=== PATIENT | male | born 1955 | race Caucasian/White ===

== ENCOUNTER 2016-12-22 07:04 | Inpatient (IN) ==
[2016-12-22] MEDS ORDERED: *HR* Ticagrelor 90 MG TABLET ONE (07:12)
[2016-12-22] MEDS ORDERED: *HR* Heparin 5,000 UNIT/ML VIAL ONE (07:12)
[2016-12-22] MEDS ORDERED: *HR* Ticagrelor 90 MG TABLET PO ONE (07:12)
[2016-12-22] MEDS ORDERED: *HR* Heparin 5,000 UNIT/ML VIAL IVP ONE (07:13)
[2016-12-22] MEDS ORDERED: *HR* Heparin 5,000 UNIT/ML VIAL IVP PRN ×2 (07:13)
[2016-12-22 07:17] LABS: Basophils % 0.4 %; Eosinophils % 0.1 %; Hematocrit 44.4 % (37.5-50.1); Hemoglobin 15.6 g/dL (12.9-16.9); Immature Granulocytes % 0.4 % (0-4); Immature Platelets 6.2 % (1.1-6.1); Lymphocytes # 0.8 K/mcL (0.6-4.6); Lymphocytes % 11.1 %; Mean Corpuscular HGB Conc 35.1 g/dL (31.6-35.5); Mean Corpuscular Hemoglobin 31.1 pg (28.0-33.3); Mean Corpuscular Volume 88.4 fL (83.0-100.0); Mean Platelet Volume 10.4 fL (9.4-12.4); Monocytes # 0.3 K/mcL (0.0-1.3); Monocytes % 3.8 %; Neutrophils # 6.4 K/mcL (1.6-8.9); Platelet Count 173 K/mcL (140-400); Red Blood Count 5.02 M/mcL (4.19-5.50); Red Cell Distribution Width 12.4 % (11.5-14.5); Segmented Neutrophils % 84.2 %
[2016-12-22] MEDS ORDERED: 0.9 % Sodium Chloride 1,000 ML ONE ×3 (07:19→08:28)
--- NOTE | 2016-12-22 07:21 | Emergency Department Note ---
Disposition Clinical Impression: STEMI (ST elevation myocardial infarction) Qualifiers: Involved coronary artery: unspecified coronary artery Qualified Code(s): I21.3 - ST elevation (STEMI) myocardial infarction of unspecified site Disposition: Admitted As Inpatient Condition: Critical Time of Disposition: 07:12 Chest Pain HPI - General Chief Complaint: ED Chest Pain Stated Complaint: chest pain Source: patient, family, EMS Limitations: no limitations Vital Signs Reviewed: Yes Nursing Notes Reviewed: Yes - History of Present Illness HPI Narrative: [id number] male postural history of SC, hypertension, hyperlipidemia, stent placement, last being 3 months ago presents to the emergency department having episode of retrosternal chest pain at 3:30 this morning. Patient states that this is similar to pains had before with previous myocardial infarctions. Patient took aspirin and nitroglycerin and his pain resolved. Patient said he was slightly diaphoretic. Patient states that he is currently having only mild chest pain. Patient also reports that he was supposed to have a stress test done today and was told not to take a lot of his medications. EMS reported ST elevations in the inferior leads 3 and aVF. They reportedly was tachycardic but hypertensive. Severity scale (1-10): 0 - Related Data Home Medications Medication Instructions Recorded Confirmed Aspirin Enteric Coated [Aspirin EC] 81 mg PO DAILY 12/26/14 09/01/16 Clopidogrel [Plavix] 75 mg PO DAILY 12/26/14 09/01/16 Esomeprazole Magnesium [Nexium] 20 mg PO DAILY 12/26/14 09/01/16 Isosorbide MONOnitrate (24 HR) 90 mg PO DAILY 12/26/14 09/01/16 [Imdur] Lisinopril [Zestril] 40 mg PO DAILY 12/26/14 09/01/16 Metoprolol [Lopressor] 100 mg PO BID 12/26/14 09/01/16 Tamsulosin [Flomax] 0.4 mg PO DAILY 12/26/14 09/01/16 Terazosin [Hytrin] 5 mg PO HS 12/26/14 09/01/16 Acetaminophen [Tylenol] 1,000 mg PO BID 09/13/15 09/01/16 amLODIPine [Norvasc] 10 mg PO DAILY 09/13/15 09/01/16 hydroCHLOROthiazide 25 mg PO DAILY 09/13/15 09/01/16 [Hydrochlorothiazide] Nitroglycerin [Nitrostat] 0.4 mg SL AD PRN 12/25/15 09/01/16 Previous Rx's Medication Instructions Recorded Atorvastatin Calcium [Lipitor] 80 mg PO HS #30 tab 09/01/16 Allergies Allergy/AdvReac Type Severity Reaction Status Date / Time omeprazole [From Prilosec] AdvReac Diarrhea Verified 01/09/16 10:07 quinine AdvReac Nightmare Verified 01/09/16 10:07 ranitidine [From Zantac] AdvReac Diarrhea Verified 01/09/16 10:07 All systems ED: reviewed and negative except as stated. Review of Systems: As Per HPI Respiratory: Denies: hemoptysis Gastrointestinal: Denies: melena, hematochezia Genitourinary: Denies: hematuria Hematological/Lymphatic: Denies: easy bleeding Chest Pain PMH - Past Medical History Medical history: Reports: arthritis, hyperlipidemia, hypertension, myocardial infarction Surgical history: Reports: angioplasty/stent, carotid endarterectomy Psychiatric history: Reports: no psych history - Social History Smoking Status: Former smoker Alcohol use: Reports: none Drug use: Reports: none Physical Exam General: 61-year-old male appearing slightly diaphoretic, but not uncomfortable Head: autraumatic, EOMI, no conjuncitval pallor, no scleral icterus, Mouth: oral mucous membranes moist Neck: neck soft, trachea midline Chest:: Equal chest wall rise Lungs: Normal lungs sounds bilaterally, no wheezes, no respiratory distress Heart: normal heart sounds, tachycardic, normal rhythm Abdomen: soft, non-tender, no rigidity, no guarding, no rebdound tenderness Lower Extremities: no pedal edema, calves non-tender Integumentary: Skin warm, dry, and intact Neuro: Alert - General Limitations: no limitations General appearance: alert, in distress Course Vital Signs Temperature 98.2 F 12/22/16 07:06 Pulse Rate 134 12/22/16 07:06 Respiratory Rate 20 12/22/16 07:06 Blood Pressure 158/89 12/22/16 07:06 O2 Sat by Pulse Oximetry 97 12/22/16 07:06 Temperature 98.2 F 12/22/16 07:06 Pulse Rate 137 12/22/16 07:14 Respiratory Rate 12 12/22/16 07:14 Blood Pressure 131/92 12/22/16 07:14 O2 Sat by Pulse Oximetry 98 12/22/16 07:14 Oxygen Delivery Oxygen Delivery Room Air Chest Pain - MDM Narrative Medical decision making narrative: 61-year-old male past medical history of severe coronary artery disease with 10 stents and most recent stent placement and he was recently taking off his medications for preparation for cardiac stress test was done a few months ago presents via EMS after concern for an inferior SC. Patient has significant ST elevations in leads 3 and aVF. Patient already took aspirin and 1 nitroglycerin prior to arrival to the emergency department. Patient was complaining of 2 out of 10 chest pain here in the emergency department he was mildly diaphoretic. EKG still reveals mild ST elevations in in 3 and aVF. That were new compared to an old electrocardiogram. STEMI was called in the emergency department at 707. [address] Dr. Dugan was spoken to as [phone] and Online Advertising Analyst was called at 7:12. STEMI orders were placed, patient was given 180 of crushed Brilinta. Patient was given heparin bolus as well Patient was tachycardic with a rate of 134 she had an emergency department. He was also normotensive at 120/80 upon arrival. We administered 2 L of normal saline boluses to prevent further hypotension. mushroom laborer came down and take the patient to the Online Advertising Analyst. Vital Signs Temperature 98.2 F 12/22/16 07:06 Pulse Rate 134 12/22/16 07:06 Respiratory Rate 20 12/22/16 07:06 Blood Pressure 158/89 12/22/16 07:06 O2 Sat by Pulse Oximetry 97 12/22/16 07:06 Temperature 98.2 F 12/22/16 07:06 Pulse Rate 137 12/22/16 07:14 Respiratory Rate 12 12/22/16 07:14 Blood Pressure 131/92 12/22/16 07:14 O2 Sat by Pulse Oximetry 98 12/22/16 07:14 Oxygen Delivery Oxygen Delivery Room Air - Medical Records Medical records reviewed: Yes I reviewed the patient's medical records. - Lab Data Lab results reviewed: Yes I reviewed the patient's lab results. Result diagrams: 12/22/16 07:10 12/22/16 07:10 Lab Results 12/22/16 12/22/16 12/22/16 Range/Units 07:10 07:10 07:10 WBC 7.6 (4.3-11.1) K/mcL RBC 5.02 (4.19-5.50) M/mcL Hgb 15.6 (12.9-16.9) g/dL Hct 44.4 (37.5-50.1) % MCV 88.4 (83.0-100.0) fL MCH 31.1 (28.0-33.3) pg MCHC 35.1 (31.6-35.5) g/dL RDW 12.4 (11.5-14.5) % Plt Count 173 (140-400) K/mcL MPV 10.4 (9.4-12.4) fL Immature Gran % 0.4 (0-4) % Seg Neutrophils % 84.2 % Lymphocytes % 11.1 % Monocytes % 3.8 % Eosinophils % 0.1 % Basophils % 0.4 % Neutrophils # 6.4 (1.6-8.9) K/mcL Lymphocytes # 0.8 (0.6-4.6) K/mcL Monocytes # 0.3 (0.0-1.3) K/mcL Eosinophils # 0.0 (0.0-0.6) K/mcL Basophils # 0.0 (0.0-0.2) K/mcL Immature Plt Fraction 6.2 H (1.1-6.1) % PT 11.2 (9.4-12.1) Seconds INR 1.0 APTT 24.1 L (26.0-36.0) Seconds Sodium 137 (136-145) mEq/L Potassium 3.7 (3.5-4.5) mEq/L Chloride 103 (98-109) mEq/L Carbon Dioxide 23 (19-29) mEq/L BUN 20 (8-26) mg/dL Creatinine 1.20 (0.72-1.25) mg/dL Est GFR ( Amer) > 60 (> 60) Est GFR (Non-Af Amer) > 60 (> 60) BUN/Creatinine Ratio 17 (6-26) Glucose 165 H (70-99) mg/dL Calculated Osmolality 290 (280-300) Calcium 9.8 (8.6-10.8) mg/dL Troponin I (0-0.03) ng/mL 12/22/16 Range/Units 07:10 WBC (4.3-11.1) K/mcL RBC (4.19-5.50) M/mcL Hgb (12.9-16.9) g/dL Hct (37.5-50.1) % MCV (83.0-100.0) fL MCH (28.0-33.3) pg MCHC (31.6-35.5) g/dL RDW (11.5-14.5) % Plt Count (140-400) K/mcL MPV (9.4-12.4) fL Immature Gran % (0-4) % Seg Neutrophils % % Lymphocytes % % Monocytes % % Eosinophils % % Basophils % % Neutrophils # (1.6-8.9) K/mcL Lymphocytes # (0.6-4.6) K/mcL Monocytes # (0.0-1.3) K/mcL Eosinophils # (0.0-0.6) K/mcL Basophils # (0.0-0.2) K/mcL Immature Plt Fraction (1.1-6.1) % PT (9.4-12.1) Seconds INR APTT (26.0-36.0) Seconds Sodium (136-145) mEq/L Potassium (3.5-4.5) mEq/L Chloride (98-109) mEq/L Carbon Dioxide (19-29) mEq/L BUN (8-26) mg/dL Creatinine (0.72-1.25) mg/dL Est GFR ( Amer) (> 60) Est GFR (Non-Af Amer) (> 60) BUN/Creatinine Ratio (6-26) Glucose (70-99) mg/dL Calculated Osmolality (280-300) Calcium (8.6-10.8) mg/dL Troponin I 0.03 (0-0.03) ng/mL - EKG Data EKG attestation: Yes I reviewed and interpreted this EKG. EKG results narrative: 07:07 Ventricular rate 136 bpm, ME interval 165 ms, QRS duration 88 ms, QT 283 ms, QTC 363 ms, normal axis. Sinus tachycardia with a rate of 136 ST-elevations in leads III and AVF of [address] Dugan was called and Online Advertising Analyst was activated at 7:12.
[2016-12-22 07:22] LABS: Prothrombin Time 11.2 Seconds (9.4-12.1)
[2016-12-22 07:24] LABS: Activated Partial Thrombo Time 24.1 Seconds (26.0-36.0)
[2016-12-22 07:31] LABS: BUN/Creatinine Ratio 17 (6-26); Blood Urea Nitrogen 20 mg/dL (8-26); Calcium 9.8 mg/dL (8.6-10.8); Carbon Dioxide 23 mEq/L (19-29); Chloride 103 mEq/L (98-109); Glucose 165 mg/dL (70-99); Osmolality,Calculated 290 (280-300); Potassium 3.7 mEq/L (3.5-4.5); Sodium 137 mEq/L (136-145); eGFR For African Americans > 60 (> 60); eGFR For Non-African Americans > 60 (> 60)
[2016-12-22] MEDS ORDERED: *HR* Midazolam HCl 2 MG/2 ML VIAL ONE (07:32)
[2016-12-22] MEDS ORDERED: *HR* FentaNYL (PF) 100 MCG/2 ML VIAL ONE (07:32)
[2016-12-22] MEDS ORDERED: Tirofiban 12.5 MG/250ML 12.5 MG/250 ML BAG ONE (07:34)
[2016-12-22] MEDS ORDERED: *HR* Atropine Sulfate 1 MG/10 ML SYRINGE ONE ×2 (07:41→12:47)
--- NOTE | 2016-12-22 07:52 | Emergency Department Note ---
START Narrative - START START: I examined this patient and my medical decision-making was reviewed with the Resident Physician. I agree with the documented findings, disposition and treatment plan as described except to the extent set forth below. Inferior STEMI by pre-hospital EKG, microbiological lab technician activated prior to pt arrival. No sx of bleeding, anticoagulation started. Pt significantly tachycardic w normal BP, suspect RV involvement. No murmur, no clinical evidence of HF. Pt has 2 peripheral IVs, IVNS running wide open into both. Pt remains tachycardic w normal BP when left for microbiological lab technician.
[2016-12-22] MEDS ORDERED: Amiodarone Premix 150 MG/100 ML BAG IVPB ONE ×2 (08:08→14:28)
[2016-12-22] MEDS ORDERED: Amiodarone Premix 360 MG/200 ML BAG IVC ONE ×2 (08:15→08:32)
[2016-12-22] MEDS ORDERED: Nitroglycerin 1,000 MCG/10 ML VIAL IV ONE (08:28)
[2016-12-22] MEDS ORDERED: *HR* Heparin 10,000 UNIT/10 ML VIAL ONE (08:28)
[2016-12-22] MEDS ORDERED: Heparin 1,000 UNITS/500 mL NS 500 ML ONE (08:28)
[2016-12-22] MEDS ORDERED: *HR* EPINEPHrine 1 MG/10 ML SYRINGE ONE (08:45)
[2016-12-22] MEDS ORDERED: Magnesium Sulfate 1 GM in 0.9 % Sodium Chloride 50 ML IVPB ONE (08:54)
[2016-12-22] MEDS ORDERED: Nitroglycerin 0.4 MG TAB.SUBL SL PRN (09:02)
--- NOTE | 2016-12-22 09:07 | Cardiology History & Physical ---
Date of Encounter: 12/22/16 Time of Encounter: 09:05 Assessment and Plan (1) STEMI (ST elevation myocardial infarction) Current Visit: Yes Status: Acute 61-year-old male presents with inferior ST elevations and acute chest pain started on appropriate ACS medications through the emergency department. Risks benefits and alternatives were discussed with the patient and he agrees to proceed with a left heart catheter. We will switch Plavix to [place] to encase patient is Plavix resistant. Consider brachii therapy for recurrent restenosis/ thrombosis The assessment and plan as outlined above was discussed with the patient and/or family members who expressed understanding and agreement. All questions were answered. Qualifiers: Involved coronary artery: right coronary artery Qualified Code(s): I21.11 - ST elevation (STEMI) myocardial infarction involving right coronary artery History of Present Illness Chief complaint: Chest Pain HPI: Mr. Blue is a 61 year old male with known history of coronary artery disease and PCI to his RCA multiple times with multiple layers in the mid RCA. Patient presented with an inferior ST elevation myocardial infarction to the emergency department. Patient states pain started 3 a half retrosternal atypical in presentation. Patient was hematologically stable on arrival to emerge department was administered ACS medications per protocol. Patient's most recent left heart catheter was August 2016 where he received PTCA to the mid RCA. Risks benefits and alternatives discussed with patient and increased proceed with a left heart catheter. Past Med Surg Social Fam HX - Past Medical History Medical history: arthritis, hyperlipidemia, hypertension, myocardial infarction Psychiatric history: no psych history - Past Surgical History Surgical History: angioplasty/stent, carotid endarterectomy - Social History Smoking Status: Former smoker Smokeless Tobacco Status: No Alcohol use: none Drug use: none - Family History Father Adopted: No Family Member Ethnicity: Non- Living Status: Hx Family Cardiac Disorders: Yes Hx Family Respiratory Disorders: No Hx Family Cancer: Yes (SISTER) Hx Family GI Disorders: No Hx Family Endocrine Disorder: Yes ([employer]) Hx Family Neuromuscular Disorders: No Hx Family Neurologic Disorders: No Hx Family HEENT Disorders: No Hx Family Autoimmune Disorders: No Mother Family Member Ethnicity: Non- Living Status: Still Living Hx Family Cardiac Disorders: Yes (HTN) Hx Family Respiratory Disorders: No Hx Family Cancer: No Hx Family GI Disorders: No Hx Family Endocrine Disorder: No Hx Family Neuromuscular Disorders: No Hx Family Neurologic Disorders: No Hx Family HEENT Disorders: No Hx Family Autoimmune Disorders: No Medications and Allergies Aspirin Enteric Coated [Aspirin EC] 81 mg PO DAILY 12/26/14 [History] Clopidogrel [Plavix] 75 mg PO DAILY 12/26/14 [History] Esomeprazole Magnesium [Nexium] 20 mg PO DAILY 12/26/14 [History] Isosorbide MONOnitrate (24 HR) [Imdur] 90 mg PO DAILY 12/26/14 [History] Lisinopril [Zestril] 40 mg PO DAILY 12/26/14 [History] Metoprolol [Lopressor] 100 mg PO BID 12/26/14 [History] Tamsulosin [Flomax] 0.4 mg PO DAILY 12/26/14 [History] Terazosin [Hytrin] 5 mg PO HS 12/26/14 [History] Acetaminophen [Tylenol] 1,000 mg PO BID 09/13/15 [History] amLODIPine [Norvasc] 10 mg PO DAILY 09/13/15 [History] hydroCHLOROthiazide [Hydrochlorothiazide] 25 mg PO DAILY 09/13/15 [History] Nitroglycerin [Nitrostat] 0.4 mg SL AD PRN 12/25/15 [History] Atorvastatin Calcium [Lipitor] 80 mg PO HS #30 tab 09/01/16 [Rx] 3 Allergy/AdvReac Type Severity Reaction Status Date / Time omeprazole [From Prilosec] AdvReac Diarrhea Verified 12/22/16 07:54 quinine AdvReac Nightmare Verified 12/22/16 07:54 ranitidine [From Zantac] AdvReac Diarrhea Verified 12/22/16 07:54 All Systems Review: A 10-system review of systems was performed and is negative for pertinent findings except as documented above in the HPI. Physical Examination General: Conversant, No Apparent Distress HEENT: Atraumatic, Normocephaly, Mucus Membranes Moist Neck: No JVD, Normal carotid pulses Cardiac: Reg Rate and Rhythm, Normal S1 and S2, No Murmur Lungs: Normal Breath Sounds, No Wheeze, Rales, Rhonchi Neuro: Alert and responsive, No focal deficits noted Abdomen: Soft, Non-Tender Skin: No rashes noted on visualized skin Musculoskeletal: No Chest Wall Tenderness Extremities: No Clubbing, No Cyanosis, No Edema, Normal Pulses Results 12/22/16 07:10 12/22/16 07:10 - VTE Reasons for not Prescribing Prophylaxis: Not indicated-Anticoagulated or INR therapeutic
--- NOTE | 2016-12-22 09:31 | Invasive Diagnostic Lab Proc ---
Name: Yung Blue Date of Study: 12/22/2016 Date: 1955 Ht: 66.9in Medical Record#: [id number] Age: 61 Wt: 214.51lb Gender: Male BSA: 2.08 Order #: [id number] BMI: 33.71 Physicians Procedure Physician: Alex Perdomo MD Referring MD: Referring MD: Staff Name Position Time In Kati Bauer RT (R) Scrub 07:24 AM Alberto Bradshaw RN Turner Machine Operator 07:24 AM Alycia Stallworth RT (R) Monitor 07:24 AM Indications Indication STEMI Procedures Performed Procedure PRQ CARD REVASC FL 1 VSL L HRT ARTERY/VENTRICLE ANGIO Pre-Procedure Checklist Informed consent is complete signed and on chart. H&P is on chart. ID band is on and ID verified with patient. Patient NPO for procedure The procedure was described for the patient and questions were answered. Blood Pressure: 129/76 ECG is on chart. Rhythm: Sinus Tachycardia Plan of Care Patient will tolerate the procedure without complications. Adequate level of comfort will be maintained. Hemodynamics will remain stable Patient will recover from procedure without complications. Respiratory function will be maintained. Cardiac rhythm will remain stable. Patient temperature will be maintained. Patient and/or family have verbalized understanding of the procedure. Patient Education Chief Complaint/Reason for Test: Cardiac Cath Developmental Category: Adult (18-64 years) Developmentally Appropriate for Age: Yes Learning Barriers: None Education Needs: Procedure Education Method: Verbal Information Taught: Cardiac Cath Educational Evaluation: Able to repeat information Intravenous Access Time IV Size Location DC'd Fluid/Drip Rate Units RN 20g 1 1/4" Patent On Arrival Lt Antecubital 0.9NaCl 25 ml/hr Frantz Curtis RN 18g 1 1/4" Patent On Arrival Rt Antecubital Frantz Curtis RN Allergies quinine omeprazole ranitidine Vital Signs Time BP (mmHg) HR (bpm) O2 Sat. RR (bpm) LOC 129 / 76 118 99 % 16 5 = Fully awake and oriented or at pre-proc level 07:30 AM 129 / 76 129 98 % 15 07:35 AM 106 / 71 127 99 % 10 07:40 AM 91 / 43 65 98 % 10 07:46 AM 105 / 55 150 % 13 07:50 AM 107 / 62 108 99 % 12 07:55 AM 96 / 54 106 99 % 14 08:00 AM 101 / 61 108 99 % 13 08:05 AM 95 / 61 102 100 % 15 08:10 AM 84 / 59 115 99 % 14 08:15 AM 90 / 56 107 96 % 14 08:32 AM 114 / 61 110 99 % 16 5 = Fully awake and oriented or at pre-proc level 08:45 AM 116 / 79 115 99 % 16 5 = Fully awake and oriented or at pre-proc level 09:04 AM 92 / 59 120 98 % 16 5 = Fully awake and oriented or at pre-proc level 09:26 AM 99 / 68 109 99 % 16 5 = Fully awake and oriented or at pre-proc level Procedural Medications Time Medication Dose Units Method Given By 07:33 AM Lidocaine 2% 10 ml Subcutaneous Alex Perdomo MD 07:34 AM Oxygen 2 L/min nasal cannula Frantz Curtis RN 07:34 AM Versed 1 mg Intravenous Frantz Curtis RN 07:34 AM Fentanyl 50 mcg Intravenous Frantz Curtis RN 07:36 AM Aggrastat Bolus: 50 ml Intravenous Frantz Curtis RN 07:36 AM Aggrastat 12.5mg/250ml 18 ml Intravenous Frantz Curtis RN 07:43 AM Epinephrine 0.25 mg Intravenous Frantz Curtis RN 08:09 AM Amiodarone 150 mg Intravenous Frantz Curtis RN ASA Classification: Emergent Procedure: ASA score is assumed Rustam Score Preprocedure Postprocedure Activity 2- Moves 4 extremities sustained head lift Activity 2- Moves 4 extremities sustained head lift Circulation 2- SBP +/= 20 points of pre-anesthetic level Circulation 2- SBP +/= 20 points of pre-anesthetic level Consciousness 2- Awake and alert oriented x 3 Consciousness 2- Awake and alert oriented x 3 O2 Saturation 2- Able to maintain O2 satruation of 92% on room air O2 Saturation 2- Able to maintain O2 satruation of 92% on room air Respiratory 2- Able to deep breathe and cough well Respiratory 2- Able to deep breathe and cough well Total Score 10 Total Score 10 Contrast Agent: Isovue Fluoro Dose: 1413 mGy Activated Clotting Time Time Seconds to Clot 08:35 AM 181 Procedure Log Time Note Enter By 07:24 AM Patient charges- Angio tray pack, Navilyst 3mm J, Pulse Oximetry and ACIST tubing and transducer ejohnson 07:24 AM Kati Bauer RT (R) Position: Scrub Time in: 07:24 ejohnson 07:24 AM Alberto Bardshaw RN Position: Turner Machine Operator Time in: 07:24 ejohnson 07:24 AM Alycia Stallworth RT (R) Position: Monitor Time in: 07:24 ejohnson 07:26 AM Pt arrived to medical laboratory manager 2 at 07:26 ejohnson 07:30 AM Vitals capture started with the following parameters, Patient=Adult, Interval=5 min, Initial Wbzplsuh=281 mmHg, Deflation Rate=5 mmHg, Cuff placed on Right Arm 07:30 AM CathStat 07:30 AM Recorded ECG: KI=286 Condition=Condition 1 07:30 AM ES=544 bpm, PAOA=188/76 mmhg, SpO2=98.0 %, Resp=15 B/min 07:33 AM Case Delayed No ejohnson 07:33 AM Hair removed from procedure site in emergency department using clippers. Bilateral groin prepped with Chloraprep by Chhaya Dwyer RN, safety strap applied then patient was draped. Skin intact. ejohnson 07:33 AM Physician arrived 07:33 ejohnson 07:33 AM Procedure start 07:33 ejohnson 07:33 AM Clinical Presentation: STEMI or equivalent ejohnson 07:33 AM Time out performed according to hospital policy ejohnson 07:33 AM Time: 07:33 10 ml Lidocaine 2% to right groin Subcutaneous Given by Alex Perdomo MD ejohnson 07:33 AM Micro-Introducer Kit utilized for sheath placement ejohnson 07:34 AM Time: 07:34 Oxygen on at 2 L/min per nasal cannula by Frantz Curtis RNcare 07:34 AM Time: 07:34 Versed 1 mg Intravenous Given by Frantz Curtis RN 07:34 AM Time: 07:34 Fentanyl 50 mcg Intravenous Given by Frantz Curtis RNcare 07:34 AM Access obtained by percutaneous puncture. 6Fr 10cm Terumo [place] sheath placed in right Femoral artery. [id number] ejohnson 07:34 AM PCI Status Emergency ejohnson 07:34 AM PCI Indication: Immediate PCI for STEMI ejohnson 07:35 AM 6Fr JR 4 Runway guide catheter was used to cannulate the PCI vessel successfully. reused? No ejohnson 07:35 AM 0.035 145cm Navilyst 3mmJ wire [id number] ejohnson 07:35 AM KM=588 bpm, YUSA=171/71 mmhg, SpO2=99 %, Resp=10 B/min 07:35 AM Recorded Pressure: Ao, HZ=107, Condition=Condition 1 (Aorta) Ao 92/60/76 07:36 AM Time: 07:36 Aggrastat Bolus: 50 ml Intravenous Given by Frantz Curtis RN Bennett pump ejohnson 07:36 AM Time: 07:36 Aggrastat 12.5mg/250ml 18 ml Intravenous Given by Frantz Curtis RN Bennett pump ejohnson 07:37 AM RCA angiography performed in multiple views. ejohnson 07:37 AM .014 Samauri 182cm guide wire across target lesion- successful. reused? No ejohnson 07:37 AM 2.0 mm x 20mm NC Emerge balloon across target lesion- successful. reused? No ejohnson 07:38 AM Balloon inflated @ 12 ruiz for 11 seconds ejohnson 07:39 AM Balloon inflated @ 12 ruiz for 8 seconds ejohnson 07:39 AM Balloon inflated @ 16 ruiz for 6 seconds ejohnson 07:40 AM Recorded Pressure: Ao, HR=87, Condition=Condition 1 (Aorta) Ao 56/26/39 07:40 AM HR=65 bpm, NIBP=91/43 mmhg, SpO2=98.0 %, Resp=10 B/min 07:42 AM Balloon catheter removed intact. ejohnson 07:42 AM Pressure channel 1 zero failed. 07:42 AM Pressure channel 1 zero failed. 07:42 AM Pressure channel 1 zero failed. 07:42 AM Pressure channel 1 zeroed. 07:43 AM Recorded Pressure: Ao, PJ=103, Condition=Condition 1 (Aorta) Ao 82/47/63 07:43 AM Time: 07:43 Epinephrine 0.25 mg Intravenous Given by Frantz Curtis RN ejohnson 07:44 AM balloon reinserted tsites 07:46 AM JI=194 bpm, DENV=668/55 mmhg, Resp=13 B/min 07:46 AM Balloon inflated @ 12 ruiz for 6 seconds tsites 07:46 AM Balloon inflated @ 12 ruiz for 3 seconds tsites 07:47 AM Balloon inflated @ 16 ruiz for 7 seconds tsites 07:47 AM Balloon inflated @ 12 ruiz for 4 seconds tsites 07:48 AM Balloon catheter removed intact. tsites 07:48 AM 2.5 mm x 20mm NC Emerge balloon across target lesion- successful. reused? No tsites 07:49 AM Balloon inflated @ 12 ruiz for 6 seconds tsites 07:49 AM Balloon inflated @ 16 ruiz for 6 seconds tsites 07:50 AM Balloon inflated @ 16 ruiz for 6 seconds tsites 07:50 AM Balloon inflated @ 16 ruiz for 6 seconds tsites 07:50 AM OZ=303 bpm, ZTJA=833/62 mmhg, SpO2=99.0 %, Resp=12 B/min, Comment=st 07:50 AM Lesion found in Mid RCA. Pre Stenosis: 99 Pre LA Flow: 1: Slow Penetration without Perfusion tsites 07:51 AM Balloon catheter removed intact. tsites 07:55 AM 3.5 mm x 15mm NC Emerge balloon across target lesion- successful. reused? No tsites 07:55 AM Balloon inflated @ 16 ruiz for 7 seconds tsites 07:55 AM Balloon inflated @ 18 ruiz for 8 seconds tsites 07:55 AM RD=985 bpm, NIBP=96/54 mmhg, SpO2=99.0 %, Resp=14 B/min 07:56 AM Balloon inflated @ 8 ruiz for 3 seconds tsites 07:57 AM Balloon inflated @ 14 ruiz for 17 seconds tsites 07:58 AM Balloon catheter removed intact. tsites 07:59 AM 3.5 mm x 20mm NC Emerge balloon across target lesion- successful. reused? No tsites 08:00 AM Recorded Pressure: Ao, LE=880, Condition=Condition 1 (Aorta) Ao 100/60/79 08:00 AM Balloon inflated @ 18 ruiz for 18 seconds tsites 08:00 AM Balloon inflated @ 14 ruiz for 12 seconds tsites 08:00 AM QC=616 bpm, CHHU=150/61 mmhg, SpO2=99.0 %, Resp=13 B/min 08:02 AM Balloon inflated @ 18 ruiz for 25 seconds tsites 08:02 AM Balloon inflated @ 16 ruiz for 25 seconds tsites 08:03 AM Balloon inflated @ 16 ruiz for 25 seconds tsites 08:04 AM Balloon inflated @ 10 ruiz for 10 seconds tsites 08:05 AM Recorded Pressure: Ao, KJ=349, Condition=Condition 1 (Aorta) Ao 92/56/73 08:05 AM XS=587 bpm, NIBP=95/61 mmhg, MoO6=215 %, Resp=15 B/min 08:06 AM wire reinserted catheter removed tsites 08:06 AM 5Fr FL 4 catheter inserted over the wire [facility] tsites 08:07 AM LCA angiography performed in multiple views. tsites 08:08 AM wire reinserted catheter removed tsites 08:09 AM Time: 08:09 Amiodarone 150 mg Intravenous Given by Frantz Curtis RN Bennett pump bolus over 10 mins tsites 08:10 AM Recorded Pressure: LV, NB=804, Condition=Condition 1 (Left Ventricle) LV 23/-47/-61 08:10 AM 5Fr Pigtail catheter inserted over the wire [facility] tsites 08:10 AM Catheter selectively placed in left ventricle tsites 08:10 AM FJ=593 bpm, NIBP=84/59 mmhg, SpO2=99.0 %, Resp=14 B/min 08:10 AM Bolus angiogram of left Ventricle complete: 10 ml/sec for a total of 20 mls tsites 08:11 AM Recorded Pressure: LV, Ao, LP=635, Condition=Condition 1 (Left Ventricle) LV 100/14/16, (Aorta) Ao 92/53/71 08:12 AM wire reinserted catheter removed tsites 08:12 AM Bolus angiogram of right Femoral complete: 2 ml/sec for a total of 4 mls tsites 08:13 AM Coronary Dominance: right tsites 08:14 AM Procedure completed at 08:14 tsites 08:15 AM EY=548 bpm, NIBP=90/56 mmhg, SpO2=96.0 %, Resp=14 B/min 08:16 AM Sign out completed: Radiation Dose 1413 mGy Fluoro Time: 13.9 Isovue 370 - 200ml contrast ml given by Alex Perdomo MD. Complications: NoneCardiac Rehab Consult needed: YesConfirmed administered medications: Yes tsites 08:17 AM Isovue 370 - 500ml,1 Bottle(s) used. tsites 08:23 AM Sheath left in place to be pulled on floor/holding areaV+Pad tsites 08:23 AM Post ECG Sinus Tachycardia tsites 08:24 AM Post Blood Pressure 90/56 tsites 08:24 AM 08:24 Post Pulses Bilateral DP & PT 1+ tsites 08:24 AM Information taught Cardiac Cath and PCI tsites 08:24 AM Education needs Procedure, Plan of Care, and Responsibilities of Patient in Care tsites 08:24 AM Learning barriers :None tsites 08:24 AM Education Methods Verbal tsites 08:24 AM Education evaluation Able to repeat information tsites 08:24 AM Site status No bleeding/hematoma - Rt Groin as reported by Kati Bauer RT (R) at 08:24 tsites 08:24 AM Opsite applied tsites 08:26 AM Report given to Cassandra RN Pt taken to Holding room Room #4. 08:26 tsites 08:27 AM Plavix, Effient or Brilinta given Yes in ER tsites 08:28 AM Delay to floor Bed availability tsites 08:28 AM Patient out of room: 08:28 tsites 08:28 AM Family placed in consult room. tsites 08:33 AM Lesion found in Proximal LAD. Pre Stenosis: 30 Pre LA Flow: tsites 08:33 AM Lesion found in Mid LAD. Pre Stenosis: 30 Pre LA Flow: tsites 08:33 AM Lesion found in Proximal Circumflex. Pre Stenosis: 30 Pre LA Flow: tsites 08:34 AM Proximal Left Anterior Descending Coronary Artery with 30% stenosis. If graft is supplying this territory, 0 % stenosis. tsites 08:34 AM Mid/Distal Left Anterior Descending Coronary Artery and diagonal branches with 30% stenosis. If graft is supplying this area, 0 % stenosis tsites 08:34 AM Circumflex, Obtuse Marginal, Left Posterior Descending, and Left Posterolateral Coronary Arteries with 30 % stenosis. If graft is supplying this area, 0 % stenosis tsites 08:34 AM Right Coronary, Right Posterior Descending Arteries with Right Posterolateral and Acute Marginal branches with 99 % stenosis. If graft is supplying this area, 0 % stenosis tsites 09:26 AM pt taken to IC 4 by ANNE MARIE Curtis and Ana Bauer [email or web address] Complications Complication None Hemodynamics Pressures Site Systolic/A Wave Diastolic/V Wave Mean AO 92 60 76 AO 56 26 39 AO 82 47 63 AO 100 60 79 AO 92 56 73 LV 23 -47 -61 LV 100 14 16 AO 92 53 71 Post Procedure Information Blood Pressure: 90/56 mmHg Rhythm: Sinus Tachycardia Post procedural instructions were given Closure Device Time Device Success/Fail 12/22/2016 8:28:00 AM Manual Compression Site Checks Time Location Status Staff Sheath In? Note 08:24 AM Rt Groin No bleeding/hematoma Kati Bauer RT (R) 08:35 AM Rt Groin No bleeding/ No Hematoma Frantz Curtis RN 08:45 AM Rt Groin No bleeding/ No Hematoma Jinny Otero RN 09:03 AM Rt Groin No bleeding/ No Hematoma Chhaya Dwyer RN Yes 09:25 AM Rt Groin No bleeding/ No Hematoma Jinny Otero RN Yes Pulses Time Site Pre-Procedure Post-Procedure Note Bilateral DP & PT 1+ 8:24:00 AM Bilateral DP & PT 1+ 12/22/2016 8:36:00 AM Bilateral DP & PT 1+ 12/22/2016 9:04:00 AM Bilateral DP & PT 1+ 12/22/2016 9:26:00 AM Bilateral DP & PT 1+ Updated by Jinny Otero RN on 12/22/2016 9:26:36 AM electronically signed on 12/22/2016 9:27:21 AM with status of Final
[2016-12-22] MEDS: Heparin 25,000 UNIT/500 ML D5W 25,000 UNIT/500 ML MLS IVC SCH ×2 (09:43→15:45)
[2016-12-22 11:11] LABS: Hemoglobin A1C 5.2 %
[2016-12-22 11:17] LABS: Alanine Aminotransferase 39 Units/L (0-55); Albumin 3.3 g/dL (3.5-5.0); Albumin/Globulin Ratio 1.2 (1.1-2.2); Alkaline Phosphatase 98 Units/L (38-126); Aspartate Amino Transferase 31 Units/L (5-34); BUN/Creatinine Ratio 18 (6-26); Bilirubin,Direct 0.2 mg/dL (0.0-0.5); Bilirubin,Indirect 0.1 mg/dL (0.0-1.2); Bilirubin,Total 0.3 mg/dL (0.2-1.2); Blood Urea Nitrogen 17 mg/dL (8-26); Calcium 8.6 mg/dL (8.6-10.8); Carbon Dioxide 20 mEq/L (19-29); Chloride 107 mEq/L (98-109); Globulin 2.8 g/dL (2.4-3.5); Glucose 136 mg/dL (70-99); Magnesium 1.8 mg/dL (1.6-2.6); Osmolality,Calculated 286 (280-300); Potassium 3.9 mEq/L (3.5-4.5); Sodium 136 mEq/L (136-145); Total Protein 6.1 g/dL (6.0-8.3); eGFR For African Americans > 60 (> 60); eGFR For Non-African Americans > 60 (> 60)
[2016-12-22 11:37] LABS: Thyroid Stimulating Hormone 0.655 mcIU/mL (0.350-4.840)
[2016-12-22] MEDS: Aspirin 81 MG TAB.CHEW PO SCH (14:01)
[2016-12-22] MEDS: Amiodarone Premix 360 MG/200 ML BAG IVC SCH ×2 (14:45→19:59)
[2016-12-22] MEDS ORDERED: *HR* Metoprolol 5 MG/5 ML VIAL IVP ONE (16:16)
[2016-12-22] MEDS: *HR* Ticagrelor 90 MG TABLET PO SCH (19:59)
[2016-12-23] MEDS: Amiodarone Premix 360 MG/200 ML BAG IVC SCH (02:20)
[2016-12-23 04:46] LABS: Basophils % 0.3 %; Eosinophils % 0.6 %; Hematocrit 38.6 % (37.5-50.1); Immature Granulocytes % 0.4 % (0-4); Lymphocytes # 0.9 K/mcL (0.6-4.6); Lymphocytes % 13.1 %; Mean Corpuscular HGB Conc 34.5 g/dL (31.6-35.5); Mean Corpuscular Hemoglobin 30.8 pg (28.0-33.3); Mean Corpuscular Volume 89.4 fL (83.0-100.0); Mean Platelet Volume 10.9 fL (9.4-12.4); Monocytes # 0.4 K/mcL (0.0-1.3); Monocytes % 6.2 %; Neutrophils # 5.5 K/mcL (1.6-8.9); Platelet Count 169 K/mcL (140-400); Red Blood Count 4.32 M/mcL (4.19-5.50); Red Cell Distribution Width 12.6 % (11.5-14.5); Segmented Neutrophils % 79.4 %
[2016-12-23 04:47] LABS: Hemoglobin 13.3 g/dL (12.9-16.9)
[2016-12-23 04:51] LABS: BUN/Creatinine Ratio 14 (6-26); Blood Urea Nitrogen 13 mg/dL (8-26); Calcium 8.7 mg/dL (8.6-10.8); Carbon Dioxide 22 mEq/L (19-29); Chloride 109 mEq/L (98-109); Glucose 111 mg/dL (70-99); Osmolality,Calculated 287 (280-300); Potassium 3.6 mEq/L (3.5-4.5); Sodium 138 mEq/L (136-145); eGFR For African Americans > 60 (> 60); eGFR For Non-African Americans > 60 (> 60)
--- NOTE | 2016-12-23 05:53 | Electrocardiograph Report ---
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
--- NOTE | 2016-12-23 05:55 | Electrocardiograph Report ---
[address] [place] [address] Test Date: 2016-12-22 Pat Name: Yung Blue Department: 109 Room: [facility] Gender: M Bond Manager: MARQUEZ : 1955 Requested By: Alex Perdomo Order Number: [id number] Reading MD: Jose Dugan MD Measurements Intervals [place] Rate: 132 P: [place]: 0 QRS: 17 QRSD: 85 T: -17 QT: 310 QTc: 388 Interpretive Statements ATRIAL FIBRILLATION WITH RAPID VENTRICULAR RESPONSE Electronically Signed On 12-23-2016 5:53:19 EST by Jose Dugan MD
[2016-12-23] MEDS: Aspirin 81 MG TAB.CHEW PO SCH (09:05)
[2016-12-23] MEDS: *HR* Ticagrelor 90 MG TABLET PO SCH ×2 (09:05→20:58)
--- NOTE | 2016-12-23 10:26 | Cardiology Progress Note ---
Date of Encounter: 12/23/16 Time of Encounter: 10:24 Assessment and Plan (1) STEMI (ST elevation myocardial infarction) Current Visit: Yes Status: Acute S/P emergent LHC yesterday--severe 3 vessel CAD, EF 55%, successful PTCA in mRCA. Brachytherapy may be an option due to recurrent restenosis/thrombosis. Echo EF 45-50%, mild segmental LV systolic dysfunction. No significant valvular dysfunction. DAPT (ASA and Brilinta) discussed. Pt verbalizes understanding. Continue Statin , BB resumed. PAF--new diagnosis. Mills checking Xarelto. If affordable, start tonight. Triple therapy x 1 month, then will stop ASA after 1 month. Right femoral access site healing well. No bleeding, hematoma or ecchymosis noted. 14 beat run NSVT yesterday. Restarting BB. Denies chest pain or dyspnea overnight. Step down to regular floor today. Tentative d/c tomorrow. Qualifiers: Involved coronary artery: right coronary artery Qualified Code(s): I21.11 - ST elevation (STEMI) myocardial infarction involving right coronary artery (2) PAF (paroxysmal atrial fibrillation) Current Visit: Yes Status: Acute New diagnosis, Amio gtt started yesterday--since converted to SR. Will stop amio gtt. BP improved, restart BB--Lopressor 25mg BID. [id number] (HTN, vascular disease). Recommend medical terminologist anticoagulation. Discussed Coumadin vs NOACs. Prefers NOAC. Will mills check Xarelto. If affordable, start tonight. Pt will be on triple therapy--ASA, Brilinta, Xarelto. Recommend triple therapy x 1 month, then stopping ASA after 1 month. (3) CAD (coronary artery disease) Current Visit: No Status: Chronic As above. Qualifiers: Coronary Disease-Associated Artery/Lesion type: [place] artery [place] vs. transplanted heart: [place] heart Associated angina: without angina Qualified Code(s): I25.10 - Atherosclerotic heart disease of [place] coronary artery without angina pectoris Discussion w patient/family: The assessment and plan as outlined above was discussed with the patient and/or family members who expressed understanding and agreement. All questions were answered. Thank you for involving us in the care of your patient. Please call with any questions. I will discuss all the above with Dr. Mcintyre and make changes as necessary. Subjective Principal diagnosis: STEMI Interval history: s/p STEMI 12/22/16--LHC with 3V CAD, EF 55%, successful PTCA to mid RCA. Echo EF 45-50%, mild segmental LV systolic dysfunction. No significant valvular dysfunction. Pt denies chest pain or dyspnea overnight. Was started on amio gtt yesterday for A-Fib with RVR--new diagnosis. Now in SR. Objective Vital Signs, Last 4 Hours Temp Pulse Resp BP Pulse Ox 12/23/16 08:00 80 12 135/76 96 12/23/16 07:38 97.4 F L 12/23/16 07:00 70 12 115/66 96 Vital Signs Temp Pulse Pulse Resp BP Pulse Ox 12/23/16 08:00 80 12 135/76 96 12/23/16 07:38 97.4 F L 12/23/16 07:00 70 12 115/66 96 12/23/16 06:00 66 13 111/61 95 12/23/16 05:00 73 15 118/63 96 12/23/16 04:24 98.3 F 12/23/16 04:00 64 10 122/69 94 12/23/16 03:00 60 11 99/61 96 12/23/16 02:00 72 14 106/59 98 12/23/16 00:55 66 13 95/58 96 12/23/16 00:00 98 F 63 12 107/64 95 12/22/16 23:00 67 17 105/69 96 12/22/16 22:00 67 11 109/66 96 12/22/16 21:00 65 17 103/59 95 12/22/16 20:08 98.1 F 12/22/16 20:00 80 14 103/93 96 12/22/16 19:47 79 12/22/16 19:00 76 14 102/62 98 12/22/16 18:00 80 18 98/70 96 12/22/16 17:00 80 15 98/61 96 12/22/16 16:00 93 15 112/75 97 12/22/16 15:00 112 15 129/70 97 12/22/16 14:00 111 16 116/71 98 12/22/16 13:23 124 12/22/16 13:08 116 12/22/16 13:00 112 15 98/53 98 12/22/16 12:00 110 128 14 95/63 99 12/22/16 11:41 97.9 F 12/22/16 11:30 106 128 20 84/62 97 12/22/16 11:00 115 128 13 88/57 95 12/22/16 10:30 128 128 12 92/58 97 Intake and Output 12/22/16 12/23/16 12/23/16 23:59 07:59 15:59 Intake Total 760 / 760 200 / 200 Output Total 300 / 300 400 / 400 300 / 300 Balance 460 / 460 -200 / -200 -300 / -300 Intake: IV Fluids 340 / 340 200 / 200 Amiodarone Drip Premix 360mg/ 200 / 200 200 / 200 200mL 360 mg In 200 ml @ 0.5 MG /MIN 16.667 mls/hr IVC CONT [facility] Rx#:[id number] Heparin 25,000 UNIT/500 ML D5W 140 / 140 25,000 unit In 500 ml @ 20 mls/ hr IVC .Q24H [facility] Rx#:[id number] Oral 420 / 420 Output: Urine 300 / 300 400 / 400 300 / 300 Other: Meal Dinner Percent of Meal Consumed 25% General: Conversant, No Apparent Distress HEENT: Atraumatic, Normocephaly, Mucus Membranes Moist Neck: No JVD, Normal carotid pulses Cardiac: Reg Rate and Rhythm, Normal S1 and S2, No Murmur Lungs: Normal Breath Sounds, No Wheeze, Rales, Rhonchi Neuro: Alert and responsive, No focal deficits noted Abdomen: Soft, Non-Tender Skin: Other (right femoral access site healing well. No bleeding, hematoma or ecchymosis noted.) Musculoskeletal: No Chest Wall Tenderness Extremities: No Clubbing, No Cyanosis, No Edema, Normal Pulses Results 12/23/16 04:21 12/23/16 04:21 Lab Results 12/22/16 12/22/16 12/23/16 10:50 22:15 04:21 WBC 7.0 Hgb 13.3 D Hct 38.6 Plt Count 169 APTT 44.1 H D Sodium 136 Potassium 3.9 Chloride 107 Carbon Dioxide 20 BUN 17 Creatinine 0.97 Glucose 136 H Calcium 8.6 Magnesium 1.8 Total Bilirubin 0.3 AST 31 ALT 39 Alkaline Phosphatase 98 TSH 0.655 12/23/16 12/23/16 12/23/16 04:21 04:21 09:35 WBC Hgb Hct Plt Count APTT 68.7 H D 44.2 H Sodium 138 Potassium 3.6 Chloride 109 Carbon Dioxide 22 BUN 13 Creatinine 0.92 Glucose 111 H Calcium 8.7 Magnesium Total Bilirubin AST ALT Alkaline Phosphatase TSH Short CBC 12/23/16 Range/Units 04:21 WBC 7.0 (4.3-11.1) K/mcL Hgb 13.3 D (12.9-16.9) g/dL Hct 38.6 (37.5-50.1) % Plt Count 169 (140-400) K/mcL Neutrophils # 5.5 (1.6-8.9) K/mcL BMP 12/23/16 12/22/16 Range/Units 04:21 10:50 Sodium 138 136 (136-145) mEq/L Potassium 3.6 3.9 (3.5-4.5) mEq/L Chloride 109 107 (98-109) mEq/L Carbon Dioxide 22 20 (19-29) mEq/L BUN 13 17 (8-26) mg/dL Creatinine 0.92 0.97 (0.72-1.25) mg/dL Glucose 111 H 136 H (70-99) mg/dL Calcium 8.7 8.6 (8.6-10.8) mg/dL Liver Function 12/22/16 Range/Units 10:50 Total Bilirubin 0.3 (0.2-1.2) mg/dL Direct Bilirubin 0.2 (0.0-0.5) mg/dL AST 31 (5-34) Units/L ALT 39 (0-55) Units/L Alkaline Phosphatase 98 (38-126) Units/L Albumin 3.3 L (3.5-5.0) g/dL Impressions Echocardiogram 12/22/16 08:54 Impressions: LVEF 45-50%. Normal LV chamber size and wall thickness. Mild segmental left ventricular systolic dysfunction. Indeterminate diastolic function. Normal right ventricular structure and function. No evidence of pulmonary hypertension. No significant valvular dysfunction. Left Ventricular Wall Motion: Rest Echo Findings The mid inferior and basal inferior [place] were hypokinetic. All other wall segments showed normal motion. Findings: Study Quality * Technically adequate exam. ECG Findings * Atrial fibrillation, bundle branch block. Left Ventricle * LVEF 45-50%. * Normal LV chamber size and wall thickness. * Mild segmental left ventricular systolic dysfunction. * Indeterminate diastolic function. * Atypical septal motion consistent with bundle branch block. Right Ventricle * Normal right ventricular structure and function. Left Atrium * Moderately dilated left atrium. Right Atrium * Mildly dilated right atrium. Interatrial Septum * Interatrial septum not well evaluated. Aortic Valve * Trileaflet aortic valve with normal function. * No aortic regurgitation. * No aortic stenosis. Mitral Valve * Normal mitral valve structure and function. * No mitral stenosis. * Trace mitral regurgitation. Tricuspid Valve * Normal tricuspid valve structure and function. * Trace tricuspid regurgitation. * No evidence of pulmonary hypertension. Pulmonic Valve * Normal pulmonic valve structure and function. * No pulmonic regurgitation. Aorta * Normally sized aortic root. Pericardium * The pericardium appears normal. IVC * The IVC is not well evaluated. Pulmonary Artery * Normal visualized portions of the main pulmonary artery. Active Medications Acetaminophen (Tylenol) 500 mg PO Q6HR PRN PRN Reason: Mild Pain Stop: 06/23/17 08:55 Aspirin (Aspirin) 81 mg PO DAILY [facility] Stop: 06/23/17 09:01 Last Admin: 12/23/16 09:05 Dose: 81 mg Atorvastatin Calcium (Lipitor) 80 mg PO HS [facility] Stop: 06/23/17 21:01 Last Admin: 12/22/16 19:59 Dose: 80 mg Isosorbide Mononitrate (Imdur) 90 mg PO DAILY [facility] Stop: 06/24/17 10:31 Metoprolol Tartrate (Lopressor) 25 mg PO BID [facility] Stop: 06/24/17 10:01 Nitroglycerin (Nitroglycerin) 0.4 mg SL AD PRN PRN Reason: Chest Pain Stop: 06/23/17 09:03 Omeprazole (Prilosec) 20 mg PO DAILY [facility] Stop: 06/24/17 09:01 Last Admin: 12/23/16 09:05 Dose: Not Given Tamsulosin HCl (Flomax) 0.4 mg PO DAILY [facility] PRN Reason: Protocol Stop: 06/24/17 09:01 Last Admin: 12/23/16 09:04 Dose: 0.4 mg Ticagrelor (Brilinta) 90 mg PO BID [facility] Last Admin: 12/23/16 09:05 Dose: 90 mg - Imaging and Cardiology Echo: report reviewed Cardiac cath: report reviewed - EKG Interpretation EKG results cardiology: other (24 hr tele AVG HR 85, PAF, now SR, 14 beat run NSVT) - VTE Reasons for not Prescribing Prophylaxis: Not indicated-Anticoagulated or INR therapeutic Consult Discharge Plan - Plan Referrals: Elias Cruz MD [Primary Care Provider] -
[2016-12-23] MEDS ORDERED: Isosorbide MONOnitrate (24 HR) 30 MG TAB.ER.24H PO SCH (10:30)
[2016-12-23] MEDS ORDERED: Nitroglycerin 0.4 MG TAB.SUBL SL PRN (11:42)
[2016-12-23] MEDS ORDERED: *HR* Rivaroxaban 10 MG TABLET PO SCH (17:00)
[2016-12-24] MEDS ORDERED: Aspirin 81 MG TAB.CHEW PO SCH (09:00)
[2016-12-24] MEDS ORDERED: Isosorbide MONOnitrate (24 HR) 30 MG TAB.ER.24H PO SCH (09:00)
[2016-12-24] MEDS: *HR* Ticagrelor 90 MG TABLET PO SCH ×2 (09:36→10:37)
[2016-12-24 10:07] VITALS: BP 144/90
--- NOTE | 2016-12-24 10:20 | Discharge Summary ---
Date of Encounter: 12/24/16 Time of Encounter: 10:14 - Discharge Diagnosis (1) STEMI (ST elevation myocardial infarction) Priority: Primary Status: Acute Qualifiers: Involved coronary artery: right coronary artery Qualified Code(s): I21.11 - ST elevation (STEMI) myocardial infarction involving right coronary artery (2) PAF (paroxysmal atrial fibrillation) Priority: Secondary Status: Acute (3) CAD (coronary artery disease) Priority: Primary Status: Chronic Qualifiers: Coronary Disease-Associated Artery/Lesion type: [place] artery [place] vs. transplanted heart: [place] heart Associated angina: without angina Qualified Code(s): I25.10 - Atherosclerotic heart disease of [place] coronary artery without angina pectoris - Discharge Medications Prescriptions: Aspirin Enteric Coated [Aspirin EC] 81 mg PO DAILY #30 tablet. Lisinopril [Zestril] 5 mg PO DAILY #30 tablet Metoprolol [Lopressor] 50 mg PO BID #60 tablet Rivaroxaban [Xarelto] 20 mg PO 1700 #30 tablet Ticagrelor [Brilinta] 90 mg PO BID #60 tablet Home Medications: Esomeprazole Magnesium [Nexium] 20 mg PO DAILY 12/26/14 [History] Isosorbide MONOnitrate (24 HR) [Imdur] 90 mg PO DAILY 12/26/14 [History] Tamsulosin [Flomax] 0.4 mg PO DAILY 12/26/14 [History] Terazosin [Hytrin] 5 mg PO HS 12/26/14 [History] Acetaminophen [Tylenol] 1,000 mg PO BID 09/13/15 [History] amLODIPine [Norvasc] 10 mg PO DAILY 09/13/15 [History] hydroCHLOROthiazide [Hydrochlorothiazide] 25 mg PO DAILY 09/13/15 [History] Nitroglycerin [Nitrostat] 0.4 mg SL AD PRN 12/25/15 [History] Atorvastatin Calcium [Lipitor] 80 mg PO HS #30 tab 09/01/16 [Rx] Aspirin Enteric Coated [Aspirin EC] 81 mg PO DAILY #30 tablet. 12/24/16 [Rx] Lisinopril [Zestril] 5 mg PO DAILY #30 tablet 12/24/16 [Rx] Metoprolol [Lopressor] 50 mg PO BID #60 tablet 12/24/16 [Rx] Rivaroxaban [Xarelto] 20 mg PO 1700 #30 tablet 12/24/16 [Rx] Ticagrelor [Brilinta] 90 mg PO BID #60 tablet 12/24/16 [Rx] Allergies/Adverse Reactions: 3 Allergy/AdvReac Type Severity Reaction Status Date / Time omeprazole [From Prilosec] AdvReac Diarrhea Verified 12/22/16 07:54 quinine AdvReac Nightmare Verified 12/22/16 07:54 ranitidine [From Zantac] AdvReac Diarrhea Verified 12/22/16 07:54 Procedures/tests Complete & Pending: Procedures Performed prior 72 hours Category Date Time Status ECG 12 lead ECG [ECG] Routine Y 12/23/16 07:00 Ordered ECG 12 lead ECG [ECG] Stat Y 12/22/16 08:54 Completed EV echocardiogram Routine Y 12/22/16 08:54 Completed Date of admission: 12/22/16 07:42 Primary care physician: Elias Cruz MD Consults: 12/22/16 08:54 Consult to Cardiac Rehabilitation-Phase1 [CONS] Routine Comment: Reason for Consult: AMI Call Completed: Yes Consult to Nurse Navigator [CONS] Routine Comment: Discharging clinician: Armando Garces Anticipated date of discharge: 12/24/16 - Patient Status Disposition: Home, Self-Care Condition: Fair Functional capacity at discharge: independent ambulation Overall status at discharge: patient is progressing back to baseline - Discharge Instructions Follow Up With: Elias Cruz [Other] - 01/06/17 10:00 am (This is beside of Janina Jackson) Pierre Quispe MD [Partnered Physician] - 02/02/17 9:00 am (office will call with follow up appointment) Additional Instructions: RISK FACTORS: STOP SMOKING: If you smoke, STOP. Smoking or tobacco use significantly increases your risk of heart disease because nicotine causes the arteries to narrow or constrict. It also causes fats to stick to the artery. Your chances of having a heart attack are greatly increased if you continue to smoke. For more information, call the education line for smoking cessation 6-229-EGLCDMF EAT A LOW FAT/CHOLESTEROL/SODIUM DIET: This diet may help reduce your chances of having a heart attack. LIFTING: Avoid lifting anything more than 10 pounds for 5-7 days Prior to straining, laughing, sneezing and/or coughing, apply manual pressure directly over insertion site. ACTIVITY: You may walk or climb stairs as tolerated You can resume sexual activity as tolerated In general, you are encouraged to engage in a minimum of 30 minutes or more of moderate intensity physical activity, such as brisk walking, daily or at least 3 -4 times weekly BATHING Do not submerge the site into water (bath tub, hot tub, swimming pool) for 1 week. This can be a source for infection into the blood stream. You may shower after 24 hours SITE CARE: After 24 hours, you may remove the dressing and leave the site open to air. Keep the site clean and dry. Clean gently and pat dry. You can expect bruising and tenderness that gradually resolve within a week or two. Return to work as instructed per your physician Resume driving as instructed per physician Keep all scheduled follow up appointments Resume medications as instructed IMPORTANT: If prescribed a Platelet Aggregation Inhibitor such as, Plavix, Brilinta or Effient: Duration of therapy is minimum one year These medications are often used in combination with Aspirin in prevention of future heart attacks Never discontinue unless consult with your Exercise Instructor STROKE (CVA) Risk factors for a stroke are: Age, cigarette smoking, diabetes, excessive alcohol consumption, family history, high blood pressure, overweight, physical inactivity, prior stroke, heart attack, diagnosis of carotid artery stenosis or other artery disease. Warning signs: Sudden numbness or weakness of the face, arm or leg; especially on one side of the body, sudden confusion, trouble speaking or understanding, sudden trouble seeing in one or both eyes, sudden trouble walking, dizziness, loss of balance or coordination, sudden severe headache with no cause. Call 911 or go to the Emergency Room. CONGESTIVE HEART FAILURE: If you have been diagnosed with Congestive Heart Failure (CHF) and your symptoms return, make an appointment with your physician Weigh yourself daily. Notify your physician if you have a weight gain of two or more pounds in one day or five or more pounds in one week. If you experience any difficulty breathing, please call 911 BLEEDING: Although the risk of bleeding is minimal, it can happen. If you have any bleeding from the site, apply firm pressure above the puncture site for 10-15 minutes. If the bleeding does not stop, continue manual pressure and call 911 Contact your physician if: You develop a fever greater than 101 degrees Fahrenheit Your site becomes reddened or has any drainage You have an increase in pain or burning at the site or if a large knot forms at the site. If you experience chest pain, shortness of breath, dizziness, or extreme tiredness, stop the activity and rest. Please notify your physicians office if you experience any of these symptoms and they are not relieved by rest please call 911! - Diet and Activity Activity: increase activity as tolerated Diet: low fat, low cholesterol - Hospital Course Hospital course: Mr. Blue is a 61 year old male that presented as a STEMI 12/22/16--S/P emergent LHC--severe 3 vessel CAD, EF 55%, successful PTCA in mRCA. Brachytherapy may be an option due to recurrent restenosis/thrombosis. Echo EF 45-50%, mild segmental LV systolic dysfunction. No significant valvular dysfunction. DAPT (ASA and Brilinta) discussed. Brilinta coupon card given. Pt verbalizes understanding of DAPT. Continue Statin, BB, ACEi. PAF--new diagnosis. Initially on IV amio gtt--converted to SR and stopped amio. Started xarelto--mills check $0. Triple therapy x 1 month, then will stop ASA after 1 month. Right femoral access site healing well. No bleeding, hematoma or ecchymosis noted. Denies chest pain or dyspnea overnight. D/C home in stable condition. Labs and vitals stable. Follow-up in 1 week--will coordinate. - Time Spent with Patient Total time spent providing and/or coordinating discharge services: Physical Examination Vital Signs, Last 4 Hours Temp Pulse Resp BP Pulse Ox 12/24/16 10:06 98 F 78 16 144/90 97 12/24/16 07:38 98.7 F 66 16 151/87 96 12/24/16 07:29 71 17 151/87 96 Vital Signs Temp Pulse Resp BP Pulse Ox 12/24/16 10:06 98 F 78 16 144/90 97 12/24/16 07:38 98.7 F 66 16 151/87 96 12/24/16 07:29 71 17 151/87 96 12/24/16 03:20 98.4 F 80 16 131/80 95 12/23/16 23:00 98.3 F 71 16 128/75 96 12/23/16 21:00 97.9 F 81 16 132/71 98 12/23/16 19:38 98.1 F 91 14 114/74 98 12/23/16 19:32 81 12/23/16 15:34 98.2 F 67 14 120/70 97 12/23/16 15:10 70 12/23/16 12:58 98.0 F 72 16 122/79 96 12/23/16 11:00 97.9 F 76 12 115/63 97 Intake and Output 12/23/16 12/24/16 12/24/16 23:59 07:59 15:59 Intake Total 240 / 240 30 / 30 Output Total 225 / 225 Balance 30 30 Intake: Oral 240 / 240 30 / 30 Output: Urine 225 / 225 Other: Meal Dinner Percent of Meal Consumed 0% Weight 95.5 kg Patient Weight 12/24/16 23:59 Weight 95.5 kg General: Conversant, No Apparent Distress HEENT: Atraumatic, Normocephaly, Mucus Membranes Moist Neck: No JVD, Normal carotid pulses Cardiac: Reg Rate and Rhythm, Normal S1 and S2, No Murmur Lungs: Normal Breath Sounds, No Wheeze, Rales, Rhonchi Neuro: Alert and responsive, No focal deficits noted Abdomen: Soft, Non-Tender Skin: No rashes noted on visualized skin Musculoskeletal: No Chest Wall Tenderness Extremities: No Clubbing, No Cyanosis, No Edema, Normal Pulses - VTE Reasons for not Prescribing Prophylaxis: Not indicated-Anticoagulated or INR therapeutic
== END 2016-12-24 12:49 | disposition home or self-care (01) | DRG 251 ==
LOC: EMEROO 07:04 → ICNU 07:25 → EMEROO 07:25 → ICNU 07:42 → UNDODISIN 07:43 → ICNU 08:52 → 2NNU 12-23 12:50 → 2NENU 12-24 06:52
PROVIDERS: ADMIT Internal Medicine Cardiovascular Disease; ATTEND Internal Medicine Cardiovascular Disease

== ENCOUNTER 2017-02-03 19:13 | Observation (INO) ==
[~2017-02-03 19:13] MED LIST: *HR* Rivaroxaban 10 MG TABLET PO SCH
--- NOTE | 2017-02-03 20:05 | Emergency Department Note ---
Disposition Clinical Impression: Stable angina CAD (coronary artery disease) Qualifiers: Coronary Disease-Associated Artery/Lesion type: unspecified vessel or lesion type [place] vs. transplanted heart: [place] heart Associated angina: with stable angina Qualified Code(s): I25.118 - Atherosclerotic heart disease of [place] coronary artery with other forms of angina pectoris Hypertension Qualifiers: Hypertension type: essential hypertension Qualified Code(s): I10 - Essential ( primary) hypertension Disposition: Admitted As Inpatient Condition: Good Referrals: Elias Cruz MD [Primary Care Provider] - Forms: ED Satisfaction Letter Time of Disposition: 21:29 Chest Pain HPI - General Chief Complaint: ED Chest Pain Stated Complaint: chest pain Time Seen by Provider: 02/03/17 19:36 Source: patient Mode of arrival: ambulatory Limitations: no limitations Vital Signs Reviewed: Yes Nursing Notes Reviewed: Yes - History of Present Illness HPI Narrative: Mr. Blue is a 61-year-old man with a history of CAD status post 2MIs with 10 stents. He was most recently admitted to the hospital in December for a myocardial infarction at which time he had PCI with point angioplasty. He presents to the ED tonight with chest pain of 3 days' duration that is intermittent and exertional in nature. He said that he first noticed this pain while walking on treadmill about 3 days ago at which time he had central chest pain was 4 out of 10 and radiated towards his neck. He did not use any nitroglycerin however the pain was relieved with rest. He said that this pain was exacerbated by walking into the cold air, at which time it advanced to a 6 out of 10. He did not have any diaphoresis, nausea or vomiting. He says that this pain did not feel like the previous times and he has had MIs, however when he spoke to his aircraft sheet metal mechanic she said that he would come to the ED if he continued to have chest pain. He is not actively having chest pain at this moment. He denies pain that is pleuritic in nature, and pain that radiates toward the back. Pt complaint: chest pain Severity scale (1-10): 0 - Related Data Home Medications Medication Instructions Recorded Confirmed Esomeprazole Magnesium [Nexium] 20 mg PO DAILY 12/26/14 12/22/16 Isosorbide MONOnitrate (24 HR) 90 mg PO DAILY 12/26/14 12/22/16 [Imdur] Tamsulosin [Flomax] 0.4 mg PO DAILY 12/26/14 12/22/16 Terazosin [Hytrin] 5 mg PO HS 12/26/14 12/22/16 Acetaminophen [Tylenol] 1,000 mg PO BID 09/13/15 12/22/16 amLODIPine [Norvasc] 10 mg PO DAILY 09/13/15 12/22/16 hydroCHLOROthiazide 25 mg PO DAILY 09/13/15 12/22/16 [Hydrochlorothiazide] Nitroglycerin [Nitrostat] 0.4 mg SL AD PRN 12/25/15 12/22/16 Previous Rx's Medication Instructions Recorded Atorvastatin Calcium [Lipitor] 80 mg PO HS #30 tab 09/01/16 Aspirin Enteric Coated [Aspirin EC] 81 mg PO DAILY #30 tablet. 12/24/16 Lisinopril [Zestril] 5 mg PO DAILY #30 tablet 12/24/16 Metoprolol [Lopressor] 50 mg PO BID #60 tablet 12/24/16 Rivaroxaban [Xarelto] 20 mg PO 1700 #30 tablet 12/24/16 Ticagrelor [Brilinta] 90 mg PO BID #60 tablet 12/24/16 Allergies Allergy/AdvReac Type Severity Reaction Status Date / Time omeprazole [From Prilosec] AdvReac Diarrhea Verified 12/22/16 07:54 quinine AdvReac Nightmare Verified 12/22/16 07:54 ranitidine [From Zantac] AdvReac Diarrhea Verified 12/22/16 07:54 Constitutional: Denies: fever, chills, weakness Eyes: Denies: vision change Cardiovascular: Reports: chest pain, dyspnea on exertion, orthopnea, edema. Denies: palpitations, syncope, paroxysmal nocturnal dyspnea Respiratory: Reports: cough, dyspnea, wheezes. Denies: hemoptysis Gastrointestinal: Denies: nausea, vomiting Genitourinary: Denies: urgency, dysuria, frequency Musculoskeletal: Reports: neck pain. Denies: back pain Neurological: Denies: headache, weakness, confusion Psychiatric: Reports: anxiety. Denies: depression Endocrine: Denies: fatigue Hematological/Lymphatic: Denies: easy bleeding Chest Pain PMH - Past Medical History Medical history: Reports: arthritis, GERD, hyperlipidemia, hypertension, myocardial infarction Surgical history: Reports: angioplasty/stent, carotid endarterectomy Psychiatric history: Reports: no psych history - Social History Smoking Status: Former smoker Alcohol use: Reports: none Drug use: Reports: none Physical Exam Gen.: Vitals noted. No acute distress. AAOx3 HEENT: PERRL/EOMI, oropharynx clear, Normocephalic, atraumatic Neck: Supple. No adenopathy. Cardiac: RRR, no murmur, +S1/S2 Pulmonary: bibasilar rales noted on auscultation Abdomen: soft, nontender, BS noted, no guarding Back: Nontender throughout. MSK: ROM intact, no joint swelling noted Extremities: b/l le edema 1+, nontender calf, no cyanosis or clubbing Neuro: A&Ox3, moves all extremities, no focal deficits Psych: Appropriate mood and behavior - General Limitations: no limitations General appearance: alert, in no apparent distress Course Vital Signs Temperature 98.4 F 02/03/17 19:20 Pulse Rate 88 02/03/17 19:20 Respiratory Rate 18 02/03/17 19:20 Blood Pressure 156/73 02/03/17 19:20 O2 Sat by Pulse Oximetry 96 02/03/17 19:20 Temperature 98.4 F 02/03/17 19:20 Pulse Rate 87 02/03/17 20:56 Respiratory Rate 16 02/03/17 20:56 Blood Pressure 132/82 02/03/17 20:56 O2 Sat by Pulse Oximetry 95 02/03/17 20:56 Oxygen Delivery Oxygen Delivery Room Air Chest Pain - MDM Narrative Medical decision making narrative: I have reviewed the patient's labs, imaging, EKG. At this time, although the patient does not have evidence of an acute VA, he is still moderately high risk for ischemic event given his history. CAD/Angina is the most probable source of this patient's pain. Initial troponin is negative, however the patient will need trending. At this time the patient is not having active chest pain, and he is hemodynamically stable. The patient takes aspirin, brilliant and xarelto, so ASA was not given in the ED. I have called the hospitalist for admission and observation. - Differential Diagnosis Likely: stable angina, chest pain - Medical Records Medical records reviewed: Yes I reviewed the patient's medical records. - Lab Data Lab results reviewed: Yes I reviewed the patient's lab results. Result diagrams: 02/03/17 20:32 02/03/17 20:32 Lab Results 02/03/17 02/03/17 02/03/17 Range/Units 20:32 20:32 20:32 WBC 6.5 (4.3-11.1) K/mcL RBC 3.81 L (4.19-5.50) M/mcL Hgb 11.8 L (12.9-16.9) g/dL Hct 33.7 L (37.5-50.1) % MCV 88.5 (83.0-100.0) fL MCH 31.0 (28.0-33.3) pg MCHC 35.0 (31.6-35.5) g/dL RDW 13.2 (11.5-14.5) % Plt Count 174 (140-400) K/mcL MPV 10.8 (9.4-12.4) fL Immature Gran % 0.5 (0-4) % Seg Neutrophils % 79.2 % Lymphocytes % 11.3 % Monocytes % 7.7 % Eosinophils % 0.8 % Basophils % 0.5 % Neutrophils # 5.2 (1.6-8.9) K/mcL Lymphocytes # 0.7 (0.6-4.6) K/mcL Monocytes # 0.5 (0.0-1.3) K/mcL Eosinophils # 0.1 (0.0-0.6) K/mcL Basophils # 0.0 (0.0-0.2) K/mcL Sodium 137 (136-145) mEq/L Potassium 4.1 (3.5-5.1) mEq/L Chloride 106 (98-107) mEq/L Carbon Dioxide 25 (23-29) mEq/L BUN 17 (8-23) mg/dL Creatinine 1.17 (0.70-1.30) mg/dL Est GFR ( Amer) > 60 (> 60) Est GFR (Non-Af Amer) > 60 (> 60) BUN/Creatinine Ratio 15 (6-26) Glucose 124 H (70-105) mg/dL Calculated Osmolality 287 (280-300) Calcium 9.2 (8.6-10.3) mg/dL Troponin I 0.03 (< 0.04) ng/mL - Radiology Data Radiology results reviewed: Yes I reviewed the patient's radiology results. - EKG Data EKG attestation: Yes I reviewed and interpreted this EKG. EKG results narrative: EKG demonstrates normal sinus rhythm with ventricular rate of 93, NC interval 198, QRS duration 87, QTC 395 no evidence of ischemia Heart Score - Score History: Moderately Suspicious EKG: Non Specific repolarisation Disturbance Age: 45-65 Risk Factors: Equal/Greater than 3 risk factor or history of atherosclerotic disease Troponin: Less than normal limit HEART Score Total: 5
--- NOTE | 2017-02-03 20:28 | Emergency Department Note ---
START Narrative - START START: I examined this patient and my medical decision-making was reviewed with the INSIDE SALES ACCOUNT REPRESENTATIVE/PA/Advanced Practice Nurse/Resident Physician. I agree with the documented findings, disposition and treatment plan as described except to the extent set forth below. Patient does have several days of chest pain lasting 2 or 3 minutes at a time which is worse with exertion and no pleuritic aspect. Occasional radiation to the neck but no radiation to the back. No pain or swelling of the lower extremities. The patient has a significant cardiac history. Labs are pending. I did review the EKG showing normal sinus rhythm with a rate of 93 without acute ischemic change or evidence of arrhythmia 2027
[2017-02-03 20:39] LABS: Basophils % 0.5 %; Eosinophils # 0.1 K/mcL (0.0-0.6); Eosinophils % 0.8 %; Hematocrit 33.7 % (37.5-50.1); Hemoglobin 11.8 g/dL (12.9-16.9); Immature Granulocytes % 0.5 % (0-4); Lymphocytes # 0.7 K/mcL (0.6-4.6); Lymphocytes % 11.3 %; Mean Corpuscular Volume 88.5 fL (83.0-100.0); Mean Platelet Volume 10.8 fL (9.4-12.4); Monocytes # 0.5 K/mcL (0.0-1.3); Monocytes % 7.7 %; Neutrophils # 5.2 K/mcL (1.6-8.9); Platelet Count 174 K/mcL (140-400); Red Blood Count 3.81 M/mcL (4.19-5.50); Red Cell Distribution Width 13.2 % (11.5-14.5); Segmented Neutrophils % 79.2 %
[2017-02-03 20:53] LABS: BUN/Creatinine Ratio 15 (6-26); Blood Urea Nitrogen 17 mg/dL (8-23); Calcium 9.2 mg/dL (8.6-10.3); Carbon Dioxide 25 mEq/L (23-29); Chloride 106 mEq/L (98-107); Glucose 124 mg/dL (70-105); Osmolality,Calculated 287 (280-300); Potassium 4.1 mEq/L (3.5-5.1); Sodium 137 mEq/L (136-145); eGFR For African Americans > 60 (> 60); eGFR For Non-African Americans > 60 (> 60)
[2017-02-03] MEDS ORDERED: Ondansetron ODT 4 MG TAB.RAPDIS SL PRN (23:10)
[2017-02-03] MEDS ORDERED: Naloxone 0.4 MG/ML INJ IVP PRN (23:10)
--- NOTE | 2017-02-03 23:10 | Internal Med History&Physical ---
<Gerson Siddiqi - Last Filed: 02/04/17 02:37> Date of Encounter: 02/04/17 Time of Encounter: 22:00 Assessment and Plan (1) Chest pain Current visit: No Status: Resolved Intermittent chest pain associated with exertion and cold temperatures per patient. Pt s/p PCI to RCA December 22, 2016, hx MD x3, stenting x10. Pt reports compliance with Brillinta 90mg BID, ASA, Xarelto, and phase I cardiac rehab. Negative troponin x1. ECG shows NSR, poor R wave progression similar to prior ECG post-PCI. On cardiac telemetry. Cardiology consult pending. Qualifiers: Chest pain type: other chest pain Qualified Code(s): R07.89 - Other chest pain; R07.8 - Other chest pain (2) CAD (coronary artery disease) Current visit: Yes Status: Chronic Qualifiers: Coronary Disease-Associated Artery/Lesion type: unspecified vessel or lesion type [place] vs. transplanted heart: [place] heart Associated angina: with stable angina Qualified Code(s): I25.118 - Atherosclerotic heart disease of [place] coronary artery with other forms of angina pectoris (3) Carotid artery stenosis Current visit: No Status: Acute Hx CEA. Asymptomatic, pt denies slurred speech, facial droop, numbness/tingling. Qualifiers: Laterality: bilateral Qualified Code(s): I65.23 - Occlusion and stenosis of bilateral carotid arteries (4) Hypertension Current visit: Yes Status: Chronic Chronic, continue home meds. Qualifiers: Hypertension type: essential hypertension Qualified Code(s): I10 - Essential (primary) hypertension (5) PAF (paroxysmal atrial fibrillation) Current visit: No Status: Acute RRR, continue bb and xarelto. (6) DVT prophylaxis Current visit: Yes Status: Acute On Xarelto. Internal Medicine - H&P: HPI Admitted From: Emergency Dept Plans for Post Hospital Care: Home History of present illness: Mr. Yung Blue is a 61 year old male with past medical history of MD x3 x10 stents with most recent this December--inferior STEMI status-post PCI to RCA on Brillinta and ASA, afib on Xarelto (onset during STEMI in December), HLD, HTN, CEA. Patient presents with 3 day onset of intermittent sternal chest pain brought on by exercise and the cold. Pain lasts for a few minutes and resolves spontaneously. States he has been compliant with his meds including his Brillinta, ASA, and Xarelto. Denies active bleed/bruising. Denies having taken nitro during the chest discomfort. Denies pain at rest, n/v, radiation to the back. ED workup shows troponin negative x1, ECG shows sinus rhythm with poor R wave progression consistent with prior ECG. Patient is currently without chest pain, no shortness of breath. Past Med Surg Social Fam HX - Past Medical History Medical history: arthritis, GERD, hyperlipidemia, hypertension, myocardial infarction Psychiatric history: no psych history - Past Surgical History Surgical History: angioplasty/stent, carotid endarterectomy - Social History Smoking Status: Former smoker Smokeless Tobacco Status: No Alcohol use: none Drug use: none - Family History Father Adopted: No Family Member Ethnicity: Non- Living Status: Hx Family Cardiac Disorders: Yes (MD, by pass) Hx Family Respiratory Disorders: No Hx Family Cancer: No Hx Family GI Disorders: No Hx Family Endocrine Disorder: Yes ([employer]PAR[employer]) Hx Family Neuromuscular Disorders: No Hx Family Neurologic Disorders: No Hx Family HEENT Disorders: No Hx Family Autoimmune Disorders: No Mother Family Member Ethnicity: Non- Living Status: Still Living Hx Family Cardiac Disorders: Yes (HTN) Hx Family Respiratory Disorders: No Hx Family Cancer: No Hx Family GI Disorders: No Hx Family Endocrine Disorder: No Hx Family Neuromuscular Disorders: No Hx Family Neurologic Disorders: No Hx Family HEENT Disorders: No Hx Family Autoimmune Disorders: No Internal Medicine - H&P: Meds Esomeprazole Magnesium [Nexium] 20 mg PO DAILY 12/26/14 [History] Isosorbide MONOnitrate (24 HR) [Imdur] 90 mg PO DAILY 12/26/14 [History] Tamsulosin [Flomax] 0.4 mg PO DAILY 12/26/14 [History] Terazosin [Hytrin] 5 mg PO HS 12/26/14 [History] amLODIPine [Norvasc] 10 mg PO DAILY 09/13/15 [History] hydroCHLOROthiazide [Hydrochlorothiazide] 25 mg PO DAILY 09/13/15 [History] Nitroglycerin [Nitrostat] 0.4 mg SL AD PRN 12/25/15 [History] Atorvastatin Calcium [Lipitor] 80 mg PO HS #30 tab 09/01/16 [Rx] Aspirin Enteric Coated [Aspirin EC] 81 mg PO DAILY #30 tablet. 12/24/16 [Rx] Lisinopril [Zestril] 5 mg PO DAILY #30 tablet 12/24/16 [Rx] Metoprolol [Lopressor] 50 mg PO BID #60 tablet 12/24/16 [Rx] Rivaroxaban [Xarelto] 20 mg PO 1700 #30 tablet 12/24/16 [Rx] Ticagrelor [Brilinta] 90 mg PO BID #60 tablet 12/24/16 [Rx] Amoxicillin/Clavulanate [Augmentin] 875 mg PO BIDWM 02/03/17 [History] 3 Allergy/AdvReac Type Severity Reaction Status Date / Time omeprazole [From Prilosec] AdvReac Diarrhea Verified 12/22/16 07:54 quinine AdvReac Nightmare Verified 12/22/16 07:54 ranitidine [From Zantac] AdvReac Diarrhea Verified 12/22/16 07:54 All Systems PM: A 10-system review of systems was performed and is negative for pertinent findings except as documented above in the HPI. - Constitutional Vitals: Temp Pulse Resp BP Pulse Ox 97.9 F 83 16 109/73 95 02/03/17 22:14 02/03/17 22:14 02/03/17 22:14 02/03/17 22:17 02/03/17 22:14 General appearance: Present: A&O X 3, pleasant, no acute distress - Respiratory Respiratory exam: Present: CTAB - Cardiovascular Cardiovascular exam: Present: RRR, +S1, +S2. Absent: irregular rhythm, JVD, systolic murmur, tachycardia - Extremities Exam Extremities exam: Present: warm. Absent: calf tenderness, cyanotic, pedal edema - Neurological Exam Neurological exam: Present: no focal deficits - Skin Skin exam: Present: normal color Internal Med - H&P Results - Labs CBC & Chem 7: 02/03/17 20:32 02/03/17 20:32 <Natasha Taylor - Last Filed: 02/04/17 03:43> Date of Encounter: 02/04/17 Internal Medicine - H&P: HPI History of present illness: Mr. Blue is a 61 year old male All Systems PM: A 10-system review of systems was performed and is negative for pertinent findings except as documented above in the HPI. - Constitutional Vitals: Temp Pulse Resp BP Pulse Ox 98.0 F 68 16 123/76 96 02/04/17 03:33 02/04/17 03:33 02/04/17 03:33 02/04/17 03:33 02/04/17 03:33 Internal Med - H&P Results - Labs CBC & Chem 7: 02/04/17 03:04 02/04/17 03:04 Labs: Short CBC 02/04/17 Range/Units 03:04 WBC 6.5 (4.3-11.1) K/mcL Hgb 11.4 L (12.9-16.9) g/dL Hct 32.4 L (37.5-50.1) % Plt Count 176 (140-400) K/mcL Neutrophils # 4.7 (1.6-8.9) K/mcL BMP 02/04/17 03:04 Sodium 138 Potassium 3.7 Chloride 106 Carbon Dioxide 25 BUN 16 Creatinine 1.05 Glucose 97 Calcium 9.1 Cardiac Enzymes 02/04/17 Range/Units 03:04 Troponin I < 0.03 (< 0.04) ng/mL - Attending Attestation I have seen and examined pt independently. I have discussed with Resident physician Dr Siddiqi regarding the management plan. Agree with documentation. Pt has recent stenting. Intermittent chest pain. EKG unremarkable. Will cont cardiac monitoring, track 3 sets of troponin. Cardio consult.
[2017-02-03] MEDS ORDERED: Nitroglycerin 0.4 MG TAB.SUBL SL PRN (23:42)
[2017-02-03] MEDS ORDERED: Isosorbide MONOnitrate (24 HR) 30 MG TAB.ER.24H PO SCH (23:45)
[2017-02-03] MEDS: *HR* Ticagrelor 90 MG TABLET PO SCH (23:58)
[2017-02-03] MEDS: hydroCHLOROthiazide 25 MG TABLET PO SCH (23:58)
[2017-02-03] MEDS: Aspirin Enteric Coated 81 MG Tablet PO SCH (23:58)
[2017-02-03] MEDS: amLODIPine 5 MG TABLET PO SCH (23:59)
[2017-02-03] MEDS: NEXIUM 20MG PO SCH (23:59)
[2017-02-04 03:21] LABS: Basophils % 0.6 %; Eosinophils # 0.1 K/mcL (0.0-0.6); Hematocrit 32.4 % (37.5-50.1); Hemoglobin 11.4 g/dL (12.9-16.9); Immature Granulocytes % 0.3 % (0-4); Lymphocytes # 1.1 K/mcL (0.6-4.6); Lymphocytes % 17.3 %; Mean Corpuscular HGB Conc 35.2 g/dL (31.6-35.5); Mean Corpuscular Hemoglobin 31.5 pg (28.0-33.3); Mean Corpuscular Volume 89.5 fL (83.0-100.0); Mean Platelet Volume 10.6 fL (9.4-12.4); Monocytes # 0.6 K/mcL (0.0-1.3); Monocytes % 8.4 %; Neutrophils # 4.7 K/mcL (1.6-8.9); Platelet Count 176 K/mcL (140-400); Red Blood Count 3.62 M/mcL (4.19-5.50); Segmented Neutrophils % 71.4 %
[2017-02-04 03:36] LABS: BUN/Creatinine Ratio 15 (6-26); Blood Urea Nitrogen 16 mg/dL (8-23); Calcium 9.1 mg/dL (8.6-10.3); Carbon Dioxide 25 mEq/L (23-29); Chloride 106 mEq/L (98-107); Glucose 97 mg/dL (70-105); Magnesium 2.1 mg/dL (1.6-2.6); Osmolality,Calculated 287 (280-300); Phosphorous 3.6 mg/dL (2.7-4.5); Potassium 3.7 mEq/L (3.5-5.1); Sodium 138 mEq/L (136-145); eGFR For African Americans > 60 (> 60); eGFR For Non-African Americans > 60 (> 60)
--- NOTE | 2017-02-04 08:37 | Cardiology Consult Note ---
<Parvez Palafox - Last Filed: 02/04/17 10:51> Date of Encounter: 02/04/17 Time of Encounter: 08:35 Assessment and Plan (1) Chest pain Status: Resolved Per Cardiology: Troponins negative 2. Exertional symptoms relieved with rest. Suspect angina. Has pending brachytherapy in [facility] in 2 weeks. CP free currently. Patient agreeable to increase long acting nitrate. We discussed adding Ranexa, however he declined for now. Patient encouraged to limit exertional activity and avoid extreme temps until brachytherapy completed. Has NTG. Cardiology will s/o, f/u as planned. Re-consult PRN. Discussed with Dr. Fung. 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 Catheter report indicates recommendations for brachytherapy-- already scheduled in [facility]. Last echo December 2016 showed EF 45-50%. On aspirin, Brilinta, statin, beta manish, ROBERTO inhibitor, long-acting nitrate. Cath report discussed with Dr. Dugan as well. Qualifiers: Coronary Disease-Associated Artery/Lesion type: unspecified vessel or lesion type [place] vs. transplanted heart: [place] heart Associated angina: with stable angina Qualified Code(s): I25.118 - Atherosclerotic heart disease of [place] coronary artery with other forms of angina pectoris (3) PAF (paroxysmal atrial fibrillation) Status: Chronic Per Cardiology: Hx of PAF. On BB and Xarelto. SR. Discussion w patient/family: The assessment and plan as outlined above was discussed with the patient who expressed understanding and agreement. All questions were answered. Thank you for involving us in the care of your patient. Please call with any questions. History of Present Illness Consult date: 02/04/17 Requesting physician: Gerson Siddiqi Consult reason: CP Chief complaint: CP History of present illness: Mr. Blue is a 61 year old male with a relevant past medical history of CAD, hypertension, hyperlipidemia, atrial fibrillation. Cardiology consult for chest pain. 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 Quispe last week. He reports has been actively participating in cardiac rehabilitation and exercising on treadmill on his own. He reports the past 2 times on his treadmill he developed midsternal epigastric burning/heaviness about 3-5 minutes into walking on the treadmill relieved with rest. Additionally, reports yesterday was outside in the cold weather with temps in single digits and developed similar symptoms relieved with going back inside with rest. He reports he did not utilize nitroglycerin pills. Reports compliance with medical regimen. He indicates pending brachytherapy in [place] scheduled February 19, 2017. Denies any accompanying symptoms. Denies any other concerns or complaints. Denies any recent fever, chills, nausea, vomiting, diarrhea, cough. Past Med Surg Social Fam HX - Past Medical History Attestation: Yes The following information was validated with the patient. Source: patient, old records reviewed Medical history: arthritis, GERD, hyperlipidemia, hypertension, myocardial infarction Psychiatric history: no psych history - Past Surgical History Surgical History: angioplasty/stent, carotid endarterectomy - Social History Smoking Status: Former smoker Smokeless Tobacco Status: No Alcohol use: none Drug use: none - Family History Father Adopted: No Family Member Ethnicity: Non- Living Status: Hx Family Cardiac Disorders: Yes ([place], by pass) Hx Family Respiratory Disorders: No Hx Family Cancer: No Hx Family GI Disorders: No Hx Family Endocrine Disorder: Yes ([employer]) Hx Family Neuromuscular Disorders: No Hx Family Neurologic Disorders: No Hx Family HEENT Disorders: No Hx Family Autoimmune Disorders: No Mother Family Member Ethnicity: Non- Living Status: Still Living Hx Family Cardiac Disorders: Yes (HTN) Hx Family Respiratory Disorders: No Hx Family Cancer: No Hx Family GI Disorders: No Hx Family Endocrine Disorder: No Hx Family Neuromuscular Disorders: No Hx Family Neurologic Disorders: No Hx Family HEENT Disorders: No Hx Family Autoimmune Disorders: No Medications and Allergies Esomeprazole Magnesium [Nexium] 20 mg PO DAILY 12/26/14 [History] Tamsulosin [Flomax] 0.4 mg PO DAILY 12/26/14 [History] Terazosin [Hytrin] 5 mg PO HS 12/26/14 [History] amLODIPine [Norvasc] 10 mg PO DAILY 09/13/15 [History] hydroCHLOROthiazide [Hydrochlorothiazide] 25 mg PO DAILY 09/13/15 [History] Nitroglycerin [Nitrostat] 0.4 mg SL AD PRN 12/25/15 [History] Atorvastatin Calcium [Lipitor] 80 mg PO HS #30 tab 09/01/16 [Rx] Aspirin Enteric Coated [Aspirin EC] 81 mg PO DAILY #30 tablet.dr 12/24/16 [Rx] Lisinopril [Zestril] 5 mg PO DAILY #30 tablet 12/24/16 [Rx] Metoprolol [Lopressor] 50 mg PO BID #60 tablet 12/24/16 [Rx] Rivaroxaban [Xarelto] 20 mg PO 1700 #30 tablet 12/24/16 [Rx] Ticagrelor [Brilinta] 90 mg PO BID #60 tablet 12/24/16 [Rx] Isosorbide MONOnitrate [Isosorbide Mononitrate ER] 120 mg PO DAILY #30 tab.er.24h 02/04/17 [Rx] 3 Allergy/AdvReac Type Severity Reaction Status Date / Time omeprazole [From Prilosec] AdvReac Diarrhea Verified 12/22/16 07:54 quinine AdvReac Nightmare Verified 12/22/16 07:54 ranitidine [From Zantac] AdvReac Diarrhea Verified 12/22/16 07:54 All Systems Review: A 10-system review of systems was performed and is negative for pertinent findings except as documented above in the HPI. - Cardiovascular Cardiovascular: as per HPI, chest pain with exertion, dyspnea on exertion (mild) Physical Examination Vital Signs, Last 4 Hours Temp Pulse Resp BP Pulse Ox 02/04/17 06:53 98.1 F 71 20 123/70 93 General: Conversant, No Apparent Distress HEENT: Atraumatic, Normocephaly, Mucus Membranes Moist Neck: No JVD, Normal carotid pulses Cardiac: Reg Rate and Rhythm, Normal S1 and S2, No Murmur Lungs: Normal Breath Sounds, No Wheeze, Rales, Rhonchi Neuro: Alert and responsive, No focal deficits noted Abdomen: Soft, Non-Tender Skin: No rashes noted on visualized skin Musculoskeletal: No Chest Wall Tenderness Extremities: No Clubbing, No Cyanosis, No Edema, Normal Pulses Results 02/04/17 03:04 02/04/17 03:04 Lab Results Laboratory Tests 12/22/16 02/03/17 02/04/17 07:10 20:32 03:04 Magnesium 2.1 Troponin I 0.03 0.03 02/04/17 03:04 Magnesium Troponin I < 0.03 ITS Impressions Chest X-Ray 02/03/17 19:36 IMPRESSION: Borderline cardiomegaly with no other significant finding. D/ / Steven Garrison MD / Steven Garrison MD Interpreting Provider: Steven Garrison MD Active Medications Amlodipine Besylate (Norvasc) 10 mg PO DAILY LINH PRN Reason: Protocol Stop: 08/05/17 23:46 Last Admin: 02/03/17 23:59 Dose: Not Given Aspirin (Aspirin Ec) 81 mg PO DAILY LINH Stop: 08/05/17 23:46 Last Admin: 02/03/17 23:58 Dose: Not Given Atorvastatin Calcium (Lipitor) 80 mg PO HS LINH Stop: 08/05/17 23:46 Last Admin: 02/03/17 23:58 Dose: Not Given Hydrochlorothiazide (Hydrochlorothiazide) 25 mg PO DAILY LINH PRN Reason: Protocol Stop: 08/05/17 23:46 Last Admin: 02/03/17 23:58 Dose: Not Given Isosorbide Mononitrate (Imdur) 90 mg PO DAILY LINH Stop: 08/05/17 23:46 Last Admin: 02/03/17 23:58 Dose: Not Given Lisinopril (Zestril) 5 mg PO DAILY LINH PRN Reason: Protocol Stop: 08/05/17 23:46 Last Admin: 02/03/17 23:59 Dose: Not Given Metoprolol Tartrate (Lopressor) 50 mg PO BID LINH Stop: 08/05/17 23:46 Last Admin: 02/03/17 23:58 Dose: Not Given Naloxone HCl (Narcan) 0.4 mg IVP Q2MIN PRN PRN Reason: Opioid Reversal Stop: 08/05/17 23:11 Nitroglycerin (Nitroglycerin) 0.4 mg SL AD PRN PRN Reason: Chest Pain Stop: 08/05/17 23:43 Ondansetron HCl (Zofran Odt) 4 mg SL Q8HR PRN PRN Reason: Nausea And Vomiting Stop: 08/05/17 23:11 Pharmacy Profile Note (Patient Taking Own Medication) 1 each PO 0630 LINH Stop: 08/05/17 23:46 Last Admin: 02/03/17 23:59 Dose: Not Given Rivaroxaban (Xarelto) 20 mg PO 1700 LINH Stop: 08/05/17 17:01 Last Admin: 02/03/17 23:58 Dose: Not Given Tamsulosin HCl (Flomax) 0.4 mg PO HS LINH PRN Reason: Protocol Stop: 08/05/17 23:46 Last Admin: 02/03/17 23:58 Dose: Not Given Terazosin HCl (Hytrin) 5 mg PO HS LINH Stop: 08/05/17 23:46 Last Admin: 02/03/17 23:58 Dose: Not Given Ticagrelor (Brilinta) 90 mg PO BID LINH Stop: 08/05/17 23:46 Last Admin: 02/03/17 23:58 Dose: Not Given ECHO 12/2016: Impressions: LVEF 45-50%. Normal LV chamber size and wall thickness. Mild segmental left ventricular systolic dysfunction. Indeterminate diastolic function. Normal right ventricular structure and function. No evidence of pulmonary hypertension. No significant valvular dysfunction. Left Ventricular Wall Motion: Rest Echo Findings The mid inferior and basal inferior [place] were hypokinetic. All other wall segments showed normal motion. - Imaging and Cardiology Echo: report reviewed Cardiac cath: report reviewed - EKG Interpretation EKG results cardiology: personally reviewed, normal ECG, sinus rhythm, no diagnostic ischemia, other (Telemetry reviewed with average heart rate 77 the past 24 hours, currently sinus rhythm in the 80s, no events noted) Consult Discharge Plan - Plan Instructions: Peripheral Vascular Disorders (DC), Chronic Hypertension (DC) Referrals: Elias Cruz MD [Primary Care Provider] - (please follow up with primary care within one week. Follow up testing as previously ordered. ) Prescriptions: Isosorbide MONOnitrate [Isosorbide Mononitrate ER] 120 mg PO DAILY #30 tab.er.24h <Vamsi Fung - Last Filed: 02/04/17 17:27> Date of Encounter: 02/04/17 - Attending Attestation Reviewed above, previous cath films, discussed with Mr. Palafox, agree with above, pt discharged by primary team before I could evaluate pt. Assessment and Plan Discussion w patient/family: The assessment and plan as outlined above was discussed with the patient and/or family members who expressed understanding and agreement. All questions were answered. Thank you for involving us in the care of your patient. Please call with any questions. History of Present Illness History of present illness: Mr. Blue is a 61 year old male All Systems Review: A 10-system review of systems was performed and is negative for pertinent findings except as documented above in the HPI. Results 02/04/17 03:04 02/04/17 03:04 Lab Results 02/04/17 02/04/17 02/04/17 03:04 03:04 03:04 WBC 6.5 Hgb 11.4 L Hct 32.4 L Plt Count 176 Sodium 138 Potassium 3.7 Chloride 106 Carbon Dioxide 25 BUN 16 Creatinine 1.05 Glucose 97 Calcium 9.1 Magnesium 2.1 Troponin I < 0.03 02/04/17 08:59 WBC Hgb Hct Plt Count Sodium Potassium Chloride Carbon Dioxide BUN Creatinine Glucose Calcium Magnesium Troponin I < 0.03
[2017-02-04 10:57] VITALS: BP 151/78
[2017-02-04] MEDS ORDERED: Isosorbide MONOnitrate (24 HR) 30 MG TAB.ER.24H PO SCH (11:00)
[2017-02-04] MEDS: hydroCHLOROthiazide 25 MG TABLET PO SCH (11:40)
[2017-02-04] MEDS: amLODIPine 5 MG TABLET PO SCH (11:40)
[2017-02-04] MEDS: Aspirin Enteric Coated 81 MG Tablet PO SCH (11:41)
[2017-02-04] MEDS: NEXIUM 20MG PO SCH (11:41)
[2017-02-04] MEDS: *HR* Ticagrelor 90 MG TABLET PO SCH (11:44)
--- NOTE | 2017-02-04 12:42 | Discharge Summary ---
Date of Encounter: 02/04/17 Time of Encounter: 12:40 - Discharge Diagnosis (1) Stable angina Priority: Primary Status: Acute (2) CAD (coronary artery disease) Priority: Secondary Status: Chronic Qualifiers: Coronary Disease-Associated Artery/Lesion type: unspecified vessel or lesion type [place] vs. transplanted heart: [place] heart Associated angina: with stable angina Qualified Code(s): I25.118 - Atherosclerotic heart disease of [place] coronary artery with other forms of angina pectoris (3) Hypertension Priority: Secondary Status: Chronic Qualifiers: Hypertension type: essential hypertension Qualified Code(s): I10 - Essential (primary) hypertension (4) Chest pain Priority: Primary Status: Resolved Qualifiers: Chest pain type: other chest pain Qualified Code(s): R07.89 - Other chest pain; R07.8 - Other chest pain - Discharge Medications Home Medications: Esomeprazole Magnesium [Nexium] 20 mg PO DAILY 12/26/14 [History] Tamsulosin [Flomax] 0.4 mg PO DAILY 12/26/14 [History] Terazosin [Hytrin] 5 mg PO HS 12/26/14 [History] amLODIPine [Norvasc] 10 mg PO DAILY 09/13/15 [History] hydroCHLOROthiazide [Hydrochlorothiazide] 25 mg PO DAILY 09/13/15 [History] Nitroglycerin [Nitrostat] 0.4 mg SL AD PRN 12/25/15 [History] Atorvastatin Calcium [Lipitor] 80 mg PO HS #30 tab 09/01/16 [Rx] Aspirin Enteric Coated [Aspirin EC] 81 mg PO DAILY #30 tablet. 12/24/16 [Rx] Lisinopril [Zestril] 5 mg PO DAILY #30 tablet 12/24/16 [Rx] Metoprolol [Lopressor] 50 mg PO BID #60 tablet 12/24/16 [Rx] Rivaroxaban [Xarelto] 20 mg PO 1700 #30 tablet 12/24/16 [Rx] Ticagrelor [Brilinta] 90 mg PO BID #60 tablet 12/24/16 [Rx] Isosorbide MONOnitrate [Isosorbide Mononitrate ER] 120 mg PO DAILY #30 tab.er.24h 02/04/17 [Rx] Allergies/Adverse Reactions: 3 Allergy/AdvReac Type Severity Reaction Status Date / Time omeprazole [From Prilosec] AdvReac Diarrhea Verified 12/22/16 07:54 quinine AdvReac Nightmare Verified 12/22/16 07:54 ranitidine [From Zantac] AdvReac Diarrhea Verified 12/22/16 07:54 Date of admission: 02/03/17 21:40 Primary care physician: Elias Cruz MD Consults: 02/04/17 02:28 Consult to Cardiology [CONS] Routine Comment: Consulting Provider: Cardiology Carolyn Reason for Consult: ACS Rule-out; s/p PCI STEMI 12/22/16; Triple therapy compliant Call Completed: No - Patient Status Disposition: Home, Self-Care Condition: Good Overall status at discharge: patient is back to baseline - Discharge Instructions Instructions: Chronic Hypertension (DC) Follow Up With: Elias Cruz MD [Primary Care Provider] - - Diet and Activity Activity: increase activity as tolerated Diet: low fat, low cholesterol Hospital course: Mr. Yung Blue is a 61 year old male with past medical history of GA x3 x10 stents with most recent this December--inferior STEMI status-post PCI to RCA on Brillinta and ASA, afib on Xarelto (onset during STEMI in December), HLD, HTN, CEA. Patient presents with 3 day onset of intermittent sternal chest pain brought on by exercise and the cold. Chest pain was determined to be related to stable angina and nitrates were up-titrated. Pt was seen by cardiology and have signed off. Pt is seen today sitting up in the chair, saying he is chest pain free and ready to go home. Pt is stable for discharge. Followup with pcp in 1-2 weeks or as scheduled. - Time Spent with Patient Total time spent providing and/or coordinating discharge services: - Constitutional Vitals: Temp Pulse Resp BP Pulse Ox 97.7 F 87 18 151/78 97 02/04/17 10:55 02/04/17 10:55 02/04/17 10:55 02/04/17 10:55 02/04/17 10:55 General appearance: Present: A&O X 3, pleasant, no acute distress - Head Head exam: Present: atraumatic, normocephalic - Eye Eye exam: Present: PERRL, conjuntiva pink, sclera anicteric Pupils: Present: PERRL - Neck Neck exam general surgery: Present: supple, trachea midline. Absent: lymphadenopathy - Respiratory Respiratory exam: Present: CTAB. Absent: accessory muscle use, rales, rhonchi, wheezes - Cardiovascular Cardiovascular exam: Present: RRR, +S1, +S2. Absent: diastolic murmur, gallop, rubs, systolic murmur - GI/Abdominal GI/Abdominal exam: Present: normal bowel sounds, soft, no peritoneal signs. Absent: distended, tenderness - Extremities Exam Extremities exam: Present: warm, radial pulses palpable and symmetrical. Absent : calf tenderness, cyanotic, pedal edema - Neurological Exam Neurological exam: Present: CN II-XII intact, oriented X3, no focal deficits. Absent: pronater drift, facial droop, speech deficit - Skin Skin exam: Present: dry, intact
--- NOTE | 2017-02-05 09:28 | Electrocardiograph Report ---
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
== END 2017-02-04 13:35 | disposition home or self-care (01) ==
LOC: EMEROO 19:13 → 3BNU 19:13
PROVIDERS: ADMIT Internal Medicine; ATTEND Registered Nurse

== ENCOUNTER 2017-11-04 17:39 | Inpatient (IN) ==
--- NOTE | 2017-11-04 18:41 | Emergency Department Note ---
Disposition Clinical Impression: Lower gastrointestinal hemorrhage, Hematochezia, LIZY (acute kidney injury) Anemia Qualifiers: Anemia type: other cause Other causes of anemia: other cause, not classified Qualified Code(s): D64.89 - Other specified anemias Disposition: Admitted As Inpatient Condition: Fair Referrals: Elias Cruz MD [Primary Care Provider] - Forms: ED Satisfaction Letter Time of Disposition: 22:44 General Adult HPI - General Chief complaint: ED GI Bleed Stated complaint: Rectal bleed S/P surgery on blood thinners Time Seen by Provider: 11/04/17 17:57 Source: patient Limitations: no limitations Nursing Notes Reviewed: Yes Vital Signs Reviewed: Yes - History of Present Illness HPI Narrative: Male patient presenting to the emergency room complaining of a history of rectal bleeding. Complaining of bright red blood per his rectum started last night. He did have a colonoscopy yesterday with one polyp removed. He is on Xaralto states he stopped taking this 2 days ago but did restart it last night at his physician's request. States that he had a bowel movement last night with bright red blood in the toilet. This proceeded again today several times. He reports the last time he had a bowel movement the bleeding had decreased but was still present. He does have positive blood on a rectal exam. He reports generalized fatigue. Does have some mild shortness of breath. States that the fatigue shortness of breath and pallor have been present since February of this year. He does report a mild left-sided abdominal pain currently. He describes it as a 1 out of 10. Denies any nausea or vomiting at this time. Pain Scale: 2 - Related Data Home Medications Medication Instructions Recorded Confirmed Esomeprazole Magnesium [Nexium] 20 mg PO DAILY 12/26/14 11/04/17 Terazosin [Hytrin] 5 mg PO HS 12/26/14 11/04/17 Nitroglycerin [Nitrostat] 0.4 mg SL AD PRN 12/25/15 11/04/17 Amlodipine Besylate [Amlodipine 5 mg PO DAILY 11/04/17 11/04/17 Besylate] Docusate [Colace] 100 mg PO BID 11/04/17 11/04/17 Ferrous Sulfate [Iron] 650 mg PO TID 11/04/17 11/04/17 Metoprolol Tartrate [Metoprolol 50 mg PO BID 11/04/17 11/04/17 Tartrate] Rivaroxaban [Xarelto] 20 mg PO HS 11/04/17 11/04/17 Tamsulosin [Flomax] 0.4 mg PO QPM 11/04/17 11/04/17 Previous Rx's Medication Instructions Recorded Atorvastatin Calcium [Lipitor] 80 mg PO HS #30 tab 09/01/16 Ticagrelor [Brilinta] 90 mg PO BID #60 tablet 12/24/16 Isosorbide MONOnitrate [Isosorbide 120 mg PO DAILY #30 tab.er.24h 02/04/17 Mononitrate ER] Allergies Allergy/AdvReac Type Severity Reaction Status Date / Time omeprazole [From Prilosec] AdvReac Diarrhea Verified 11/04/17 20:37 quinine AdvReac Nightmare Verified 11/04/17 20:37 ranitidine [From Zantac] AdvReac Diarrhea Verified 11/04/17 20:37 All systems ED: reviewed and negative except as stated. Review of Systems: As Per HPI Constitutional: Denies: fever, chills ENT ED: Denies: congestion Cardiovascular: Denies: chest pain, palpitations, syncope Respiratory: Reports: dyspnea. Denies: cough, sputum production Gastrointestinal: Reports: abdominal pain (Left-sided.), hematochezia. Denies: vomiting, diarrhea, hematemesis, melena Genitourinary: Denies: urgency, dysuria, frequency, hematuria Musculoskeletal: Denies: back pain, neck pain Integumentary: Reports: other (Pallor.). Denies: rash Neurological: Reports: weakness Past Medical History - Past Medical History Attestation: Yes The following information was validated with the patient. Source: patient Medical history: Reports: coronary artery disease, GERD, hyperlipidemia, hypertension, myocardial infarction Surgical history: Reports: angioplasty/stent, carotid endarterectomy, other Psychiatric history: Reports: no psych history - Social History Smoking Status: Former smoker Smokeless Tobacco Status: No Alcohol use: Reports: none Drug use: Reports: none Physical Exam - General Limitations: no limitations General appearance: alert, in no apparent distress - Head Head exam: atraumatic, normocephalic, normal inspection - Eye Eye exam: Present: normal appearance, PERRL, EOMI - ENT ENT exam: normal exam, normal oropharynx, mucous membranes moist - Neck Neck exam: Present: normal inspection, full ROM, trachea midline - Chest Chest inspection: Present: normal inspection, symmetric chest wall rise. Absent : tenderness - Respiratory Respiratory exam: Present: other (Coarse lung sounds in the lower bases.). Absent: respiratory distress, accessory muscle use - Cardiovascular Cardiovascular exam: Present: regular rate, normal rhythm, normal heart sounds. Absent: tachycardia - Abdominal Exam Abdominal exam: Present: soft, tenderness (Mild tenderness to the left upper and left lower quadrant.). Absent: distention, guarding, rebound, rigidity, organomegaly, Klein's sign, Rovsing's sign, tenderness at McBurney's Point - Rectal Exam Consulting Sme present during exam: Yes Rectal exam: Present: normal rectal tone, heme (+) stool, bloody stool. Absent : fecal impaction, mass, tenderness - Extremities Exam Extremities exam: Present: normal inspection, full ROM, normal capillary refill. Absent: tenderness, pedal edema - Back Exam Back exam: Present: normal inspection, full ROM. Absent: tenderness - Neurological Exam Neurological exam: Present: alert, oriented X3 - Psychiatric Psychiatric exam: Present: normal affect, normal mood - Skin Skin exam: Present: warm, dry, intact, pallor Course Course Narrative: Patient is pallor in color. Does report some dyspnea on exertion. Denies any chest pain. Did have a low hemoglobin approximately 2 weeks ago. This is in the 7. Has not had a blood transfusion but is agreeable to have a blood transfusion if needed. Patient denies any just overt abdominal pain but does report a mild vague left-sided pain that he scores a 1 out of 10. There is no peritonitis his abdomen is rounded but not firm. Not rigid. He does have gross blood on rectal exam. - Reevaluation(s) Reevaluation #1: Patient was reevaluated. He states that his bleeding from his rectum has stopped. CT of his abdomen showed no acute process however there is a concern for possible metastatic disease in his lungs. I did discuss this with the patient. We did have 2 units of blood ordered as patient is anemic. We have also admitted the patient to the hospitalist. I did place a consult for GI at his request. - Consultations Consultation #1: Dr Torre accepted Pt in stable condition. He did request that we give Pt 40 mg of Protonix. I did order this. He also requested a GI consult. WE have placed this as well. Time: 21:14 Vital Signs Temperature 98.6 F 11/04/17 17:49 Pulse Rate 79 11/04/17 17:49 Respiratory Rate 16 11/04/17 17:49 Blood Pressure 133/72 11/04/17 17:49 O2 Sat by Pulse Oximetry 100 11/04/17 17:49 Temperature 98.5 F 11/04/17 22:29 Pulse Rate 79 11/04/17 22:31 Respiratory Rate 20 11/04/17 22:31 Blood Pressure 106/59 11/04/17 22:31 O2 Sat by Pulse Oximetry 100 11/04/17 22:31 Oxygen Delivery Oxygen Delivery Room Air Medical Decision Making - Medical Records Medical records reviewed: Yes I reviewed the patient's medical records. - Lab Data Lab results reviewed: Yes I reviewed the patient's lab results. Result diagrams: 11/04/17 18:00 11/04/17 18:00 Lab Results 11/04/17 11/04/17 11/04/17 Range/Units 18:00 18:00 18:00 WBC 6.4 (4.3-11.1) K/mcL RBC 3.42 L (4.19-5.50) M/mcL Hgb 6.8 L (12.9-16.9) g/dL Hct 24.4 L (37.5-50.1) % MCV 71.3 L (83.0-100.0) fL MCH 19.9 L (28.0-33.3) pg MCHC 27.9 L (31.6-35.5) g/dL RDW 24.1 H (11.5-14.5) % Plt Count 177 (140-400) K/mcL MPV 11.0 (9.4-12.4) fL Immature Gran % 0.3 (0-4) % Seg Neutrophils % 78.9 % Lymphocytes % 10.9 % Monocytes % 8.7 % Eosinophils % 0.9 % Basophils % 0.3 % Neutrophils # 5.1 (1.6-8.9) K/mcL Lymphocytes # 0.7 (0.6-4.6) K/mcL Monocytes # 0.6 (0.0-1.3) K/mcL Eosinophils # 0.1 (0.0-0.6) K/mcL Basophils # 0.0 (0.0-0.2) K/mcL Platelet Estimate Normal (Normal) Large Platelets Present A (Not Present) Hypochromasia Present A (Not Present) Anisocytosis 2+ A (Not Present) Microcytosis Present A (Not Present) PT 21.2 H (9.4-12.1) Seconds INR 1.9 Sodium 140 (136-145) mEq/L Potassium 4.0 (3.5-5.1) mEq/L Chloride 111 H (98-107) mEq/L Carbon Dioxide 22 L (23-29) mEq/L BUN 17 (8-23) mg/dL Creatinine 1.39 H (0.70-1.30) mg/dL Est GFR ( Amer) > 60 (> 60) Est GFR (Non-Af Amer) 52 L (> 60) BUN/Creatinine Ratio 12 (6-26) Glucose 131 H (70-105) mg/dL Calculated Osmolality 293 (280-300) Calcium 9.0 (8.6-10.3) mg/dL Total Bilirubin 0.5 (0.3-1.0) mg/dL AST 25 (13-39) Units/L ALT 35 (7-52) Units/L Alkaline Phosphatase 86 (34-104) Units/L Serum Total Protein 5.6 L (6.4-8.9) g/dL Albumin 4.1 (3.5-5.7) g/dL Globulin 1.5 L (2.4-3.5) g/dL Albumin/Globulin Ratio 2.7 H (1.1-2.2) Stool Occult Bld Scrn (Negative) Blood Type Antibody Screen Crossmatch 11/04/17 11/04/17 Range/Units 18:00 18:31 WBC (4.3-11.1) K/mcL RBC (4.19-5.50) M/mcL Hgb (12.9-16.9) g/dL Hct (37.5-50.1) % MCV (83.0-100.0) fL MCH (28.0-33.3) pg MCHC (31.6-35.5) g/dL RDW (11.5-14.5) % Plt Count (140-400) K/mcL MPV (9.4-12.4) fL Immature Gran % (0-4) % Seg Neutrophils % % Lymphocytes % % Monocytes % % Eosinophils % % Basophils % % Neutrophils # (1.6-8.9) K/mcL Lymphocytes # (0.6-4.6) K/mcL Monocytes # (0.0-1.3) K/mcL Eosinophils # (0.0-0.6) K/mcL Basophils # (0.0-0.2) K/mcL Platelet Estimate (Normal) Large Platelets (Not Present) Hypochromasia (Not Present) Anisocytosis (Not Present) Microcytosis (Not Present) PT (9.4-12.1) Seconds INR Sodium (136-145) mEq/L Potassium (3.5-5.1) mEq/L Chloride (98-107) mEq/L Carbon Dioxide (23-29) mEq/L BUN (8-23) mg/dL Creatinine (0.70-1.30) mg/dL Est GFR ( Amer) (> 60) Est GFR (Non-Af Amer) (> 60) BUN/Creatinine Ratio (6-26) Glucose (70-105) mg/dL Calculated Osmolality (280-300) Calcium (8.6-10.3) mg/dL Total Bilirubin (0.3-1.0) mg/dL AST (13-39) Units/L ALT (7-52) Units/L Alkaline Phosphatase (34-104) Units/L Serum Total Protein (6.4-8.9) g/dL Albumin (3.5-5.7) g/dL Globulin (2.4-3.5) g/dL Albumin/Globulin Ratio (1.1-2.2) Stool Occult Bld Scrn Positive A (Negative) Blood Type A POSITIVE Antibody Screen NEGATIVE Crossmatch See Detail - Radiology Data Radiology results reviewed: Yes I reviewed the patient's radiology results. Abdomen/Pelvis CT 11/04/17 18:35 IMPRESSION: 1. Several scattered solid noncalcified subcentimeter pulmonary nodules are worrisome for metastatic disease. Differential would be granulomas but metastatic disease must be excluded. 2. A 2.5 cm anterior left renal midpole cyst. D/ / Vamsi Churchill MD / Vamsi Churchill MD Interpreting Provider: Vamsi Churchill MD Chest X-Ray 11/04/17 18:45 IMPRESSION: No significant findings in the chest. D/ / Steven Garrison MD / Steven Garrison MD Interpreting Provider: Steven Garrison MD Attestation Statement - Attestation Attestation: I, Dwight Mckenna DO, examined this patient [id number] and my medical decision-making was reviewed with Dr. Niyah Wagner, Resident Physician. I agree with the documented findings, disposition and treatment plan as described except to the extent set forth below. Please see my progress notes for details.
[2017-11-04 18:45] LABS: Immature Granulocytes % 0.3 % (0-4); Mean Corpuscular Volume 71.3 fL (83.0-100.0)
[2017-11-04 18:47] LABS: Basophils % 0.3 %; Eosinophils # 0.1 K/mcL (0.0-0.6); Eosinophils % 0.9 %; Hematocrit 24.4 % (37.5-50.1); Hemoglobin 6.8 g/dL (12.9-16.9); Lymphocytes # 0.7 K/mcL (0.6-4.6); Lymphocytes % 10.9 %; Mean Corpuscular HGB Conc 27.9 g/dL (31.6-35.5); Mean Corpuscular Hemoglobin 19.9 pg (28.0-33.3); Monocytes # 0.6 K/mcL (0.0-1.3); Monocytes % 8.7 %; Neutrophils # 5.1 K/mcL (1.6-8.9); Platelet Count 177 K/mcL (140-400); Red Blood Count 3.42 M/mcL (4.19-5.50); Red Cell Distribution Width 24.1 % (11.5-14.5); Segmented Neutrophils % 78.9 %
[2017-11-04 18:53] LABS: INR 1.9; Prothrombin Time 21.2 Seconds (9.4-12.1)
[2017-11-04 19:03] LABS: Hypochromasia Present (Not Present)
[2017-11-04 19:04] LABS: Anisocytosis 2+ (Not Present); Large Platelets Present (Not Present); Microcytosis Present (Not Present); Platelet Estimate Normal (Normal)
--- NOTE | 2017-11-04 19:04 | Emergency Department Note ---
Disposition Clinical Impression: Lower gastrointestinal hemorrhage, Hematochezia, LIZY (acute kidney injury) Anemia Qualifiers: Anemia type: other cause Other causes of anemia: other cause, not classified Qualified Code(s): D64.89 - Other specified anemias Disposition: Admitted As Inpatient Condition: Fair Referrals: Elias Cruz MD [Partnered Physician] - Forms: ED Satisfaction Letter Time of Disposition: 21:26 General Adult HPI - General Chief complaint: ED GI Bleed Stated complaint: Rectal bleed S/P surgery on blood thinners Time Seen by Provider: 11/04/17 17:57 Source: patient Limitations: no limitations - History of Present Illness Pain Scale: 2 - Related Data Home Medications Medication Instructions Recorded Confirmed Esomeprazole Magnesium [Nexium] 20 mg PO DAILY 12/26/14 02/03/17 Terazosin [Hytrin] 5 mg PO HS 12/26/14 02/03/17 Nitroglycerin [Nitrostat] 0.4 mg SL AD PRN 12/25/15 02/03/17 Amlodipine Besylate [Amlodipine 5 mg PO DAILY 11/04/17 11/04/17 Besylate] Docusate [Colace] 100 mg PO BID 11/04/17 11/04/17 Ferrous Sulfate [Iron] 650 mg PO TID 11/04/17 11/04/17 Metoprolol Tartrate [Metoprolol 50 mg PO BID 11/04/17 11/04/17 Tartrate] Rivaroxaban [Xarelto] 20 mg PO HS 11/04/17 11/04/17 Tamsulosin [Flomax] 0.4 mg PO QPM 11/04/17 11/04/17 Previous Rx's Medication Instructions Recorded Atorvastatin Calcium [Lipitor] 80 mg PO HS #30 tab 09/01/16 Ticagrelor [Brilinta] 90 mg PO BID #60 tablet 12/24/16 Isosorbide MONOnitrate [Isosorbide 120 mg PO DAILY #30 tab.er.24h 02/04/17 Mononitrate ER] Allergies Allergy/AdvReac Type Severity Reaction Status Date / Time omeprazole [From Prilosec] AdvReac Diarrhea Verified 11/04/17 20:37 quinine AdvReac Nightmare Verified 11/04/17 20:37 ranitidine [From Zantac] AdvReac Diarrhea Verified 11/04/17 20:37 Constitutional: Denies: fever, chills ENT ED: Denies: congestion Cardiovascular: Denies: chest pain, palpitations, syncope Respiratory: Reports: dyspnea. Denies: cough, sputum production Gastrointestinal: Reports: abdominal pain (Left-sided.), hematochezia. Denies: vomiting, diarrhea, hematemesis, melena Genitourinary: Denies: urgency, dysuria, frequency, hematuria Musculoskeletal: Denies: back pain, neck pain Integumentary: Reports: other (Pallor.). Denies: rash Neurological: Reports: weakness Past Medical History - Past Medical History Medical history: Reports: coronary artery disease, GERD, hyperlipidemia, hypertension, myocardial infarction Surgical history: Reports: angioplasty/stent, carotid endarterectomy, other Psychiatric history: Reports: no psych history - Social History Smoking Status: Former smoker Smokeless Tobacco Status: No Alcohol use: Reports: none Drug use: Reports: none Physical Exam - General Limitations: no limitations General appearance: alert, in no apparent distress Course Vital Signs Temperature 98.6 F 11/04/17 17:49 Pulse Rate 79 11/04/17 17:49 Respiratory Rate 16 11/04/17 17:49 Blood Pressure 133/72 11/04/17 17:49 O2 Sat by Pulse Oximetry 100 11/04/17 17:49 Temperature 98.6 F 11/04/17 17:49 Pulse Rate 78 11/04/17 21:19 Respiratory Rate 20 11/04/17 21:19 Blood Pressure 122/44 11/04/17 21:19 O2 Sat by Pulse Oximetry 100 11/04/17 21:19 Oxygen Delivery Oxygen Delivery Room Air Medical Decision Making - Lab Data Result diagrams: 11/04/17 18:00 11/04/17 18:00 Lab Results 11/04/17 11/04/17 11/04/17 Range/Units 18:00 18:00 18:00 WBC 6.4 (4.3-11.1) K/mcL RBC 3.42 L (4.19-5.50) M/mcL Hgb 6.8 L (12.9-16.9) g/dL Hct 24.4 L (37.5-50.1) % MCV 71.3 L (83.0-100.0) fL MCH 19.9 L (28.0-33.3) pg MCHC 27.9 L (31.6-35.5) g/dL RDW 24.1 H (11.5-14.5) % Plt Count 177 (140-400) K/mcL MPV 11.0 (9.4-12.4) fL Immature Gran % 0.3 (0-4) % Seg Neutrophils % 78.9 % Lymphocytes % 10.9 % Monocytes % 8.7 % Eosinophils % 0.9 % Basophils % 0.3 % Neutrophils # 5.1 (1.6-8.9) K/mcL Lymphocytes # 0.7 (0.6-4.6) K/mcL Monocytes # 0.6 (0.0-1.3) K/mcL Eosinophils # 0.1 (0.0-0.6) K/mcL Basophils # 0.0 (0.0-0.2) K/mcL Platelet Estimate Normal (Normal) Large Platelets Present A (Not Present) Hypochromasia Present A (Not Present) Anisocytosis 2+ A (Not Present) Microcytosis Present A (Not Present) PT 21.2 H (9.4-12.1) Seconds INR 1.9 Sodium 140 (136-145) mEq/L Potassium 4.0 (3.5-5.1) mEq/L Chloride 111 H (98-107) mEq/L Carbon Dioxide 22 L (23-29) mEq/L BUN 17 (8-23) mg/dL Creatinine 1.39 H (0.70-1.30) mg/dL Est GFR ( Amer) > 60 (> 60) Est GFR (Non-Af Amer) 52 L (> 60) BUN/Creatinine Ratio 12 (6-26) Glucose 131 H (70-105) mg/dL Calculated Osmolality 293 (280-300) Calcium 9.0 (8.6-10.3) mg/dL Total Bilirubin 0.5 (0.3-1.0) mg/dL AST 25 (13-39) Units/L ALT 35 (7-52) Units/L Alkaline Phosphatase 86 (34-104) Units/L Serum Total Protein 5.6 L (6.4-8.9) g/dL Albumin 4.1 (3.5-5.7) g/dL Globulin 1.5 L (2.4-3.5) g/dL Albumin/Globulin Ratio 2.7 H (1.1-2.2) Stool Occult Bld Scrn (Negative) Blood Type Antibody Screen Crossmatch 11/04/17 11/04/17 Range/Units 18:00 18:31 WBC (4.3-11.1) K/mcL RBC (4.19-5.50) M/mcL Hgb (12.9-16.9) g/dL Hct (37.5-50.1) % MCV (83.0-100.0) fL MCH (28.0-33.3) pg MCHC (31.6-35.5) g/dL RDW (11.5-14.5) % Plt Count (140-400) K/mcL MPV (9.4-12.4) fL Immature Gran % (0-4) % Seg Neutrophils % % Lymphocytes % % Monocytes % % Eosinophils % % Basophils % % Neutrophils # (1.6-8.9) K/mcL Lymphocytes # (0.6-4.6) K/mcL Monocytes # (0.0-1.3) K/mcL Eosinophils # (0.0-0.6) K/mcL Basophils # (0.0-0.2) K/mcL Platelet Estimate (Normal) Large Platelets (Not Present) Hypochromasia (Not Present) Anisocytosis (Not Present) Microcytosis (Not Present) PT (9.4-12.1) Seconds INR Sodium (136-145) mEq/L Potassium (3.5-5.1) mEq/L Chloride (98-107) mEq/L Carbon Dioxide (23-29) mEq/L BUN (8-23) mg/dL Creatinine (0.70-1.30) mg/dL Est GFR ( Amer) (> 60) Est GFR (Non-Af Amer) (> 60) BUN/Creatinine Ratio (6-26) Glucose (70-105) mg/dL Calculated Osmolality (280-300) Calcium (8.6-10.3) mg/dL Total Bilirubin (0.3-1.0) mg/dL AST (13-39) Units/L ALT (7-52) Units/L Alkaline Phosphatase (34-104) Units/L Serum Total Protein (6.4-8.9) g/dL Albumin (3.5-5.7) g/dL Globulin (2.4-3.5) g/dL Albumin/Globulin Ratio (1.1-2.2) Stool Occult Bld Scrn Positive A (Negative) Blood Type A POSITIVE Antibody Screen NEGATIVE Crossmatch See Detail Critical Care Time Critical Care Time: Yes Total Critical Care Time: 35 Attestation: Critical care performed: Time is exclusive of separately billable procedures. Time includes: direct patient care, patient reassessment, coordination of patient care, interpretation of data (laboratory data, radiology data, and respiratory data), review of patient's medical records, medical consultation and documentation of patient care. Procedures included in critical care time: Procedures excluded from critical care time: Attestation Statement - Attestation Attestation: I, Dwight Mckenna DO, examined this patient [id number] and my medical decision-making was reviewed with Dr. Niyah Wagner, Resident Physician. I agree with the documented findings, disposition and treatment plan as described except to the extent set forth below. Please see my progress notes for details. 62-year-old male presents to the emergency room for evaluation of GI bleed. Patient popped removed yesterday afternoon upper and lower endoscopy completed by Dr. Anupam sharp. The patient started Xarelto again last night. He is currently on Xarelto secondary to atrial fibrillation. Patient denies any fall trauma or injury. The only recent manipulation was the endoscopy with polyps being removed yesterday during the colonoscopy. Patient presented here today simply because of bright red blood per rectum and is stable. Currently denying chest pain shortness of breath headache vision changes nausea vomiting or diarrhea. No fevers no chills. Patient will have type and screen and CBC chemistry fluids and pain medication provided as needed. His physical exam is otherwise unremarkable lungs are clear. Abdomen is soft nontender nondistended. Heart is regular but stable. Patient had a rectal examination completed the did show Blood on the rectal exam. Lower GI bleed is suspicious at this time with polyps being removed yesterday. If patient is symptomatic or family anemic she will require admission blood transfusion. Disposition to be determined. See detailed documentation the physical exam, medical intervention , medical decision-making disposition the resident physician's note. 1900 Hemoglobin is 6.8. Type and screen is still pending. 2 units of blood will be ordered. Patient only took one dose of his Xarelto last nights we will not be aggressively reversed at this time with medications. We will continue to monitor here in the remainder the labs are resulted and CT imaging of his abdomen is completed. Patient will most every required admission for continued observation until the bleeding resolves and he can be effectively started back on his anticoagulation medication or determined whether or not he truly needs it. Approximately 35 minutes of critical care will be applied secondary to blood transfusion medical intervention. Patient is otherwise currently stable. 2114 Patient was admitted to the hospitalist Dr. Torre. No other recommendations this time outside of provider the patient proton For what appears to be a lower GI bleed. We will accommodate this request of this time. Patient otherwise has not had any other gross episodes of hematochezia here. He did have gross blood on rectal examination but no active brisk bleeding. The symptoms did start last night has had a point for drop in his hemoglobin. Patient is otherwise clinically stable and will be admitted for symptomatic control and observation admission with the bleeding resolves. Findings on the CT scan of the lower chest were discussed including the concern for neoplasm and the patient was informed. Admission process to be completed this time.
[2017-11-04 19:11] LABS: Alanine Aminotransferase 35 Units/L (7-52); Albumin 4.1 g/dL (3.5-5.7); Albumin/Globulin Ratio 2.7 (1.1-2.2); Alkaline Phosphatase 86 Units/L (34-104); Aspartate Amino Transferase 25 Units/L (13-39); BUN/Creatinine Ratio 12 (6-26); Bilirubin,Total 0.5 mg/dL (0.3-1.0); Blood Urea Nitrogen 17 mg/dL (8-23); Carbon Dioxide 22 mEq/L (23-29); Chloride 111 mEq/L (98-107); Globulin 1.5 g/dL (2.4-3.5); Glucose 131 mg/dL (70-105); Osmolality,Calculated 293 (280-300); Sodium 140 mEq/L (136-145); Total Protein 5.6 g/dL (6.4-8.9); eGFR For Non-African Americans 52 (> 60)
[2017-11-04] MEDS ORDERED: Pantoprazole 40 MG VIAL IVP ONE (21:15)
[2017-11-04] MEDS ORDERED: Acetaminophen 325 MG TABLET PO PRN (21:55)
[2017-11-04] MEDS ORDERED: Naloxone 0.4 MG/ML INJ IVP PRN (21:55)
[2017-11-04] MEDS ORDERED: 0.9 % Sodium Chloride 500 ML ONE (21:57)
--- NOTE | 2017-11-04 22:12 | Internal Med History&Physical ---
<Gordy Black - Last Filed: 11/04/17 23:50> Date of Encounter: 11/04/17 Time of Encounter: 22:12 Internal Medicine - H&P: HPI Chief complaint: GI Bleed Admitted From: Home Plans for Post Hospital Care: Home History of present illness: Mr. Blue is a 62 year old male with a past medical history of coronary artery disease with 11 stents, gastroesophageal reflux disease, hyperlipidemia, hypertension, myocardial infarction, atrial fibrillation on Xarelto, iron deficiency anemia. He received a colonoscopy yesterday indicated for iron deficiency anemia, with one sessile polyp removed. He stopped taking his Xarelto 2 days prior to the procedure, the procedure was completed without incident and he was sent home and told to resume his Xarelto. Today at approximately 5:00 PM he noticed bright red blood in the toilet after a bowel movement and he presented to the emergency department. He denied having any symptoms including chest pain, shortness of breath, nausea or vomiting, lightheadedness or syncope. In the emergency department his vitals were within normal limits, hemoglobin was found to be 6.8, stool occult blood screen positive. He was given 1 dose of 40 mg IV Protonix, typed and screened. On my exam the patient was asymptomatic and without complaint. I informed him of our recommendation to admit for lower gastrointestinal bleed and he understood and agreed. Social history negative for smoking, alcohol, recreational drug use. Past Med Surg Social Fam HX - Past Medical History Medical history: coronary artery disease, GERD, hyperlipidemia, hypertension, myocardial infarction Additional medical history: [place] x3 Psychiatric history: no psych history - Past Surgical History Surgical History: angioplasty/stent, carotid endarterectomy, other Additional surgical history: cataracts removed. colonoscopy. R carotid endarterectomy - Social History Smoking Status: Former smoker Smokeless Tobacco Status: No Alcohol use: none Drug use: none - Family History Father Adopted: No Family Member Ethnicity: Non- Living Status: Hx Family Cardiac Disorders: Yes ([place], by pass) Hx Family Respiratory Disorders: No Hx Family Cancer: No Hx Family GI Disorders: No Hx Family Endocrine Disorder: Yes ([employer]) Hx Family Neuromuscular Disorders: No Hx Family Neurologic Disorders: No Hx Family HEENT Disorders: No Hx Family Autoimmune Disorders: No Mother Family Member Ethnicity: Non- Living Status: Still Living Hx Family Cardiac Disorders: Yes (HTN) Hx Family Respiratory Disorders: No Hx Family Cancer: No Hx Family GI Disorders: No Hx Family Endocrine Disorder: No Hx Family Neuromuscular Disorders: No Hx Family Neurologic Disorders: No Hx Family HEENT Disorders: No Hx Family Autoimmune Disorders: No Internal Medicine - H&P: Meds Esomeprazole Magnesium [Nexium] 20 mg PO DAILY 12/26/14 [History] Terazosin [Hytrin] 5 mg PO HS 12/26/14 [History] Nitroglycerin [Nitrostat] 0.4 mg SL AD PRN 12/25/15 [History] Atorvastatin Calcium [Lipitor] 80 mg PO HS #30 tab 09/01/16 [Rx] Ticagrelor [Brilinta] 90 mg PO BID #60 tablet 12/24/16 [Rx] Isosorbide MONOnitrate [Isosorbide Mononitrate ER] 120 mg PO DAILY #30 tab.er.24h 02/04/17 [Rx] Amlodipine Besylate [Amlodipine Besylate] 5 mg PO DAILY 11/04/17 [History] Docusate [Colace] 100 mg PO BID 11/04/17 [History] Ferrous Sulfate [Iron] 650 mg PO TID 11/04/17 [History] Metoprolol Tartrate [Metoprolol Tartrate] 50 mg PO BID 11/04/17 [History] Rivaroxaban [Xarelto] 20 mg PO HS 11/04/17 [History] Tamsulosin [Flomax] 0.4 mg PO QPM 11/04/17 [History] 3 Allergy/AdvReac Type Severity Reaction Status Date / Time omeprazole [From Prilosec] AdvReac Diarrhea Verified 11/04/17 20:37 quinine AdvReac Nightmare Verified 11/04/17 20:37 ranitidine [From Zantac] AdvReac Diarrhea Verified 11/04/17 20:37 All Systems PM: A 10-system review of systems was performed and is negative for pertinent findings except as documented above in the HPI. - Constitutional Constitutional: no excessive sweating, no fatigue, no fever(s), no weakness - Cardiovascular Cardiovascular ROS IM: irregular heart rhythm, no chest pain, no diaphoresis, no dyspnea, no dyspnea on exertion, no lightheadedness, no orthopnea, no palpitations, no syncope - Respiratory Respiratory: no cough, no hemoptysis - Gastrointestinal Gastrointestinal: no abdominal pain, no diarrhea, no heartburn, no vomiting - Musculoskeletal Musculoskeletal ROS IM: no muscle weakness - Integumentary Integumentary IM: no unusual bruising - Neurological Neurological ROS: no abnormal speech, no focal weakness - Psychiatric Psychiatric: no confusion - Constitutional Vitals: Temp Pulse Resp BP Pulse Ox 98.6 F 78 20 122/44 100 11/04/17 17:49 11/04/17 21:19 11/04/17 21:19 11/04/17 21:19 11/04/17 21:19 Exam: Patient in no acute distress, alert and oriented 3 Cranial nerves II through XII intact Heart in tachycardic rate and irregular rhythm intermittent with normal sinus rhythm, no murmurs or gallops auscultated Lungs clear to auscultation bilaterally without wheeze or rales Abdomen soft and mildly distended without guarding, mildly tender to palpation in the left lower quadrant, hyperresonant bowel sounds present Bilateral lower extremities nonedematous Skin warm and dry, pallor visualized Internal Med - H&P Results - Labs CBC & Chem 7: 11/04/17 18:00 11/04/17 18:00 Labs: Short CBC 11/04/17 Range/Units 18:00 WBC 6.4 (4.3-11.1) K/mcL Hgb 6.8 L (12.9-16.9) g/dL Hct 24.4 L (37.5-50.1) % Plt Count 177 (140-400) K/mcL Neutrophils # 5.1 (1.6-8.9) K/mcL BMP 11/04/17 18:00 Sodium 140 Potassium 4.0 Chloride 111 H Carbon Dioxide 22 L BUN 17 Creatinine 1.39 H Glucose 131 H Calcium 9.0 Liver Function 11/04/17 Range/Units 18:00 Total Bilirubin 0.5 (0.3-1.0) mg/dL AST 25 (13-39) Units/L ALT 35 (7-52) Units/L Alkaline Phosphatase 86 (34-104) Units/L Albumin 4.1 (3.5-5.7) g/dL - Impressions ITS Impressions Abdomen/Pelvis CT 11/04/17 18:35 IMPRESSION: 1. Several scattered solid noncalcified subcentimeter pulmonary nodules are worrisome for metastatic disease. Differential would be granulomas but metastatic disease must be excluded. 2. A 2.5 cm anterior left renal midpole cyst. D/ / Vamsi Churchill MD / Vamsi Churchill MD Interpreting Provider: Vamsi Churchill MD Chest X-Ray 11/04/17 18:45 IMPRESSION: No significant findings in the chest. D/ / Steven Garrison MD / Steven Garrison MD Interpreting Provider: Steven Garrison MD - Assessment and plan (1) Anemia Current Visit: Yes Status: Acute Assessment and plan: Patient with history of chronic iron deficiency anemia received colonoscopy yesterday with polyp removal He noticed bright red blood in the toilet after a bowel movement this afternoon and presented to the ED On presentation hemoglobin was noted to be 6.8 Vital signs are within normal limits and the patient is hemodynamically stable Patient is otherwise asymptomatic and without complaints Suspect lower gastrointestinal bleed secondary to polyp removal and Xarelto Plan 2 unit PRBC MIVF 150ml/hr x 2 bags Q6HR CBC Continuous Cardiac Monitoring GI Consult NPO Diet Iron Supplementation Xarelto held Qualifiers: Other causes of anemia: acute posthemorrhagic Qualified Code(s): D62 - Acute posthemorrhagic anemia (2) Lower gastrointestinal hemorrhage Current Visit: Yes Status: Acute Assessment and plan: Suspect lower gastrointestinal hemorrhage secondary to polyp removal on Xarelto GI consulted, plan as seen above (3) LIZY (acute kidney injury) Current Visit: Yes Status: Acute Assessment and plan: Creatinine on admission 1.39, based on previous lab results is only slightly elevated above his baseline Likely secondary to hypovolemia from hemorrhage Fluid replacement initiated BMP repeated in a.m. Avoid nehrotoxins and renally dose medications Continue to monitor (4) CAD (coronary artery disease) Current Visit: No Status: Chronic Assessment and plan: Patient with significant history of coronary artery disease and stent placement History of remote myocardial infarction Resume home medication of atorvastatin Resume metoprolol once blood pressure is baseline Continuous cardiac monitoring Qualifiers: Coronary Disease-Associated Artery/Lesion type: [place] artery [place] vs. transplanted heart: [place] heart Associated angina: with stable angina Qualified Code(s): I25.118 - Atherosclerotic heart disease of [place] coronary artery with other forms of angina pectoris (5) Hypertension Current Visit: No Status: Chronic Assessment and plan: Chronic stable hypertension managed with home medication Patient currently slightly below baseline blood pressure is baseline Resume home metoprolol once blood pressures baseline Qualifiers: Hypertension type: essential hypertension Qualified Code(s): I10 - Essential (primary) hypertension (6) PAF (paroxysmal atrial fibrillation) Current Visit: No Status: Chronic Assessment and plan: Paroxysmal atrial fibrillation controlled with metoprolol and Xarelto for anticoagulation Hold home medications Continuous cardiac monitoring (7) DVT prophylaxis Current Visit: Yes Status: Acute Assessment and plan: Sequential compression devices - Time Spent With Patient Total time spent is greater than 50% in coordination of care (as documented) at patient's floor/unit and/or counseling patient: <Charlene Cardona - Last Filed: 11/05/17 00:08> Date of Encounter: 11/05/17 Internal Medicine - H&P: HPI History of present illness: Mr. Blue is a 62 year old male All Systems PM: A 10-system review of systems was performed and is negative for pertinent findings except as documented above in the HPI. - Constitutional Vitals: Temp Pulse Resp BP Pulse Ox 98.1 F 86 17 103/64 99 11/04/17 23:58 11/04/17 23:58 11/04/17 23:58 11/04/17 23:58 11/04/17 23:58 Internal Med - H&P Results - Labs CBC & Chem 7: 11/04/17 18:00 11/04/17 18:00 - Assessment and plan (1) CAD (coronary artery disease) Current Visit: No Status: Chronic Qualifiers: Coronary Disease-Associated Artery/Lesion type: [place] artery [place] vs. transplanted heart: [place] heart Associated angina: with stable angina Qualified Code(s): I25.118 - Atherosclerotic heart disease of [place] coronary artery with other forms of angina pectoris (2) Hypertension Current Visit: No Status: Chronic Qualifiers: Hypertension type: essential hypertension Qualified Code(s): I10 - Essential (primary) hypertension (3) PAF (paroxysmal atrial fibrillation) Current Visit: No Status: Chronic (4) Lower gastrointestinal hemorrhage Current Visit: Yes Status: Acute (5) Anemia Current Visit: Yes Status: Acute Qualifiers: Other causes of anemia: acute posthemorrhagic Qualified Code(s): D62 - Acute posthemorrhagic anemia (6) LIZY (acute kidney injury) Current Visit: Yes Status: Acute (7) DVT prophylaxis Current Visit: Yes Status: Acute - Time Spent With Patient Total time spent is greater than 50% in coordination of care (as documented) at patient's floor/unit and/or counseling patient: - Attending Attestation Patient seen on 11/04 Yung Blue is a 62 year old man with a history of coronary artery disease, atrial fibrillation, hyperlipidemia and hypertension who underwent a screening colonoscopy and EGD yesterday due to progressive anemia. He was found to have a large polyp in the transverse colon which was resected. While he held his rivaroxaban for 2 days prior to the procedure and he resumed it last night after the procedure and today in the afternoon when he moved his bowels for the first time noticed malcom bright red blood. This happened 3 times at home is prompted him to come to the emergency room. Arrival he remained clinically and hemodynamically stable but was found to have a drop in his hemoglobin to 6.8. He was 7.2 on 10/21 and earlier in the year his baseline was at 11. My assessment he is currently stable stating that his abdomen feels bloated and distended but otherwise denies any pain, shortness of breath or chest pain. We will admit for observation in the setting of acute blood loss anemia. Transfuse to goal of >8g/dl. Hold anticoagulants. GI follow up in the morning. Hold antihypertensives for now. ANNA FRANK.
[2017-11-05] MEDS ORDERED: 0.9 % Sodium Chloride 500 ML ONE (01:02)
[2017-11-05] MEDS: 0.9 % Sodium Chloride 1,000 ML IVC SCH ×2 (05:13→10:36)
[2017-11-05 05:40] LABS: Basophils % 0.3 %; Immature Granulocytes % 0.3 % (0-4)
[2017-11-05 05:42] LABS: Eosinophils % 0.5 %; Hematocrit 26.7 % (37.5-50.1); Immature Platelets 6.8 % (1.1-6.1); Lymphocytes % 15.1 %; Mean Corpuscular Hemoglobin 22.8 pg (28.0-33.3); Mean Corpuscular Volume 76.1 fL (83.0-100.0); Mean Platelet Volume 11.1 fL (9.4-12.4); Monocytes # 0.5 K/mcL (0.0-1.3); Monocytes % 8.2 %; Neutrophils # 4.8 K/mcL (1.6-8.9); Platelet Count 139 K/mcL (140-400); Red Blood Count 3.51 M/mcL (4.19-5.50); Red Cell Distribution Width 24.9 % (11.5-14.5); Segmented Neutrophils % 75.6 %
[2017-11-05 05:45] LABS: INR 1.5; Prothrombin Time 16.4 Seconds (9.4-12.1)
[2017-11-05 06:03] LABS: BUN/Creatinine Ratio 17 (6-26); Blood Urea Nitrogen 21 mg/dL (8-23); Calcium 8.6 mg/dL (8.6-10.3); Carbon Dioxide 23 mEq/L (23-29); Chloride 114 mEq/L (98-107); Glucose 116 mg/dL (70-105); Osmolality,Calculated 292 (280-300); Potassium 4.3 mEq/L (3.5-5.1); Sodium 139 mEq/L (136-145); eGFR For Non-African Americans > 60 (> 60)
[2017-11-05 06:05] LABS: Anisocytosis 2+ (Not Present); Hypochromasia Present (Not Present); Microcytosis Present (Not Present)
[2017-11-05 06:06] LABS: Platelet Estimate Decreased (Normal); Polychromasia 1+ (Not Present)
[2017-11-05] MEDS ORDERED: amLODIPine 5 MG TABLET PO SCH (09:00)
--- NOTE | 2017-11-05 10:44 | Internal Med Progress Note ---
Hospitalist Progress Note - Encounter Date of Encounter: 11/05/17 Time of Encounter: 10:44 - Subjective Interval History: Patient with atrial fibrillation on anticoagulation, status post colonoscopy 2 days ago with polyp excision who presented with acute blood loss anemia from lower GI bleed. He is pending surgical evaluation at time of review, he denies any complaints. Status post 2 units of red blood cells with appropriate response. - Exam Vitals: Temp Pulse Resp BP Pulse Ox 98.2 F 70 18 131/71 98 11/05/17 06:45 11/05/17 06:45 11/05/17 06:45 11/05/17 06:45 11/05/17 06:45 Exam: Patient in no acute distress, alert and oriented 3 Cranial nerves II through XII intact Heart normal rate and irregular rhythm intermittent with normal sinus rhythm, no murmurs or gallops auscultated Lungs clear to auscultation bilaterally without wheeze or rales Abdomen soft and mildly distended without guarding, mildly tender to palpation in the left lower quadrant, hyperresonant bowel sounds present Bilateral lower extremities nonedematous Skin warm and dry, pallor visualized - Assessment and Plan (1) CAD (coronary artery disease) Current Visit: Yes Status: Chronic Assessment and Plan: Continue home meds Resume by mouth when cleared by surgery (2) Hypertension Current Visit: Yes Status: Chronic Assessment and Plan: Continue prn medication for now, patient is NPO (3) PAF (paroxysmal atrial fibrillation) Current Visit: Yes Status: Chronic Assessment and Plan: Paroxysmal atrial fibrillation controlled with metoprolol and Xarelto for anticoagulation HR controlled on metoprolol prn, xarelto on hold due to acute blood loss anemia from LGIB (4) Lower gastrointestinal hemorrhage Current Visit: Yes Status: Acute Assessment and Plan: Suspect lower gastrointestinal hemorrhage secondary to polyp removal on Xarelto Spoke to Dr. NORMAN, he will be seeing the patient today Keep patient NPO at this time (5) Anemia Current Visit: Yes Status: Acute Assessment and Plan: Patient with history of chronic iron deficiency anemia received colonoscopy with polyp removal He noticed bright red blood in the toilet after a bowel movement this afternoon and presented to the ED On presentation hemoglobin was noted to be 6.8 Vital signs are within normal limits and the patient is hemodynamically stable Patient is otherwise asymptomatic and without complaints Suspect lower gastrointestinal bleed secondary to polyp removal and Xarelto s/p 2 units RBCs, HB 8.0 Surgery has been consulted Continue to monitor Hb (6) LIZY (acute kidney injury) Current Visit: Yes Status: Acute Assessment and Plan: Chem now at baseline Avoid nehrotoxins and renally dose medications Continue to monitor (7) DVT prophylaxis Current Visit: Yes Status: Acute Assessment and Plan: Sequential compression devices - Time Spent with Patient Total time spent is greater than 50% in coordination of care (as documented) at patient's floor/unit and/or counseling patient: Plan of Care Discussed with: patient Internal Medicine: Result - Labs CBC & Chem 7: 11/05/17 05:25 11/05/17 05:25 Labs: Short CBC 11/05/17 Range/Units 05:25 WBC 6.4 (4.3-11.1) K/mcL Hgb 8.0 L (12.9-16.9) g/dL Hct 26.7 L (37.5-50.1) % Plt Count 139 L (140-400) K/mcL Neutrophils # 4.8 (1.6-8.9) K/mcL BMP 11/05/17 05:25 Sodium 139 Potassium 4.3 Chloride 114 H Carbon Dioxide 23 BUN 21 Creatinine 1.21 Glucose 116 H Calcium 8.6 - ABG Interpretation ABG results: PT/INR, D-dimer PT 16.4 Seconds (9.4-12.1) H 11/05/17 05:25 Consult Discharge Plan - Plan Referrals: Elias Cruz MD [Primary Care Provider] - (1) CAD (coronary artery disease) Qualifiers: Coronary Disease-Associated Artery/Lesion type: [place] artery [place] vs. transplanted heart: [place] heart Associated angina: with stable angina Qualified Code(s): I25.118 - Atherosclerotic heart disease of [place] coronary artery with other forms of angina pectoris (2) Hypertension Qualifiers: Hypertension type: essential hypertension Qualified Code(s): I10 - Essential (primary) hypertension (5) Anemia Qualifiers: Other causes of anemia: acute posthemorrhagic
[2017-11-05] MEDS ORDERED: Polyethylene Glycol 3350 255 GM POWDER PO ONE (14:39)
--- NOTE | 2017-11-05 15:27 | General Surgery Consult Note ---
<Naty Tao - Last Filed: 11/05/17 15:22> Date of Encounter: 11/05/17 Time of Encounter: 15:15 Assessment and Plan (1) Lower GI bleeding Current Visit: Yes Status: Acute Clear liquid diet today- no red dye Miralax and Gatorade bowel prep Plan for colonoscopy in the next [address] Suero to evaluate for bleeding Hold Xarelto for now Supportive measures Medical management per hospitalist Monitor Hgb/Hct Repeat INR 1.5 today History of Present Illness Consult date: 11/05/17 Reason for consult: other (Rectal bleeding) Requesting physician: Umer Mcallister History of present illness: Mr. Blue is a 62 year old male who is recently s/p colonoscopy with polypectomy with Dr. Suero on 11/03/17. He has a history of anemia and is on Xarelto. He states that he did resume his Xarelto on 11/03/17 after polypectomy. He reported to the ED last evening with complaints of rectal bleeding since colonoscopy complete. He does have an appetite. Denies any nausea/vomiting. Admits to feeling dizzy and light headed at times. His INR was 1.9 on admission and Hgb was 6.8. He states that he has not had a full meal or regular bowel movement since his colonoscopy 2 days ago. We have been asked to see and evaluate the patient for further recommendations. Past Med Surg Social Fam HX - Past Medical History Source: patient, old records reviewed Medical history: coronary artery disease, GERD, hyperlipidemia, hypertension, myocardial infarction (2017), other (BPH) Additional medical history: [place] x3 Psychiatric history: no psych history - Past Surgical History Surgical History: angioplasty/stent (2015, 2016, 2017), carotid endarterectomy ( Right), cataract, other (tonsillectomy, Cardiac ablation) Additional surgical history: cataracts removed. colonoscopy. R carotid endarterectomy - Social History Smoking Status: Former smoker Smokeless Tobacco Status: No Alcohol use: none Drug use: none Current living situation: Home - Independent Activity Level: Independent ambulation - Family History Father Adopted: No Family Member Ethnicity: Non- Living Status: Hx Family Cardiac Disorders: Yes ([place], by pass) Hx Family Respiratory Disorders: No Hx Family Cancer: No Hx Family GI Disorders: No Hx Family Endocrine Disorder: Yes ([employer]) Hx Family Neuromuscular Disorders: No Hx Family Neurologic Disorders: No Hx Family HEENT Disorders: No Hx Family Autoimmune Disorders: No Mother Family Member Ethnicity: Non- Living Status: Still Living Hx Family Cardiac Disorders: Yes (HTN) Hx Family Respiratory Disorders: No Hx Family Cancer: No Hx Family GI Disorders: No Hx Family Endocrine Disorder: No Hx Family Neuromuscular Disorders: No Hx Family Neurologic Disorders: No Hx Family HEENT Disorders: No Hx Family Autoimmune Disorders: No Medications and Allergies Esomeprazole Magnesium [Nexium] 20 mg PO DAILY 12/26/14 [History] Terazosin [Hytrin] 5 mg PO HS 12/26/14 [History] Nitroglycerin [Nitrostat] 0.4 mg SL AD PRN 12/25/15 [History] Atorvastatin Calcium [Lipitor] 80 mg PO HS #30 tab 09/01/16 [Rx] Ticagrelor [Brilinta] 90 mg PO BID #60 tablet 12/24/16 [Rx] Isosorbide MONOnitrate [Isosorbide Mononitrate ER] 120 mg PO DAILY #30 tab.er.24h 02/04/17 [Rx] Amlodipine Besylate [Amlodipine Besylate] 5 mg PO DAILY 11/04/17 [History] Docusate [Colace] 100 mg PO BID 11/04/17 [History] Ferrous Sulfate [Iron] 650 mg PO TID 11/04/17 [History] Metoprolol Tartrate [Metoprolol Tartrate] 50 mg PO BID 11/04/17 [History] Rivaroxaban [Xarelto] 20 mg PO HS 11/04/17 [History] Tamsulosin [Flomax] 0.4 mg PO QPM 11/04/17 [History] 3 Allergy/AdvReac Type Severity Reaction Status Date / Time omeprazole [From Prilosec] AdvReac Diarrhea Verified 11/04/17 20:37 quinine AdvReac Nightmare Verified 11/04/17 20:37 ranitidine [From Zantac] AdvReac Diarrhea Verified 11/04/17 20:37 Review of Systems All systems PM: reviewed and no additional remarkable complaints except as stated (in the HPI) All systems PM: The remainder of the systems were reviewed and are negative General Surgery Exam Initial Vital Signs Temp Pulse Resp BP Pulse Ox 98.6 F 79 16 133/72 100 09/27/18 17:49 11/04/17 17:49 11/04/17 17:49 11/04/17 17:49 11/04/17 17:49 - General physical appearance well developed, well nourished, no distress, no pain - Eyes PERRL, normal ocular movement - ENT normal mucosa, atraumatic, normocephalic - Neck trachea midline - Respiratory normal respiratory effort, clear to auscultation - Cardiovascular Cardiovascular exam: Present: RRR - Abdomen Abdomen general surgery: Present: bowel sounds present, soft, non tender - Integumentary Integumentary general surgery: Present: warm and dry - Neurologic Present: CN 2-12 grossly intact - Psychiatric Psychiatric general surgery: Present: appropriate, oriented to person, oriented to place, oriented to time, speech is normal, memory intact Exam Initial Vital Signs Temp Pulse Resp BP Pulse Ox 98.6 F 79 16 133/72 100 11/04/17 17:49 11/04/17 17:49 11/04/17 17:49 11/04/17 17:49 11/04/17 17:49 Results - Labs 11/05/17 05:25 11/05/17 05:25 Abnormal lab results RBC 3.51 M/mcL (4.19-5.50) L 11/05/17 05:25 Hgb 8.0 g/dL (12.9-16.9) L 11/05/17 05:25 Hct 26.7 % (37.5-50.1) L 11/05/17 05:25 MCV 76.1 fL (83.0-100.0) L 11/05/17 05:25 MCH 22.8 pg (28.0-33.3) L 11/05/17 05:25 MCHC 30.0 g/dL (31.6-35.5) L 11/05/17 05:25 RDW 24.9 % (11.5-14.5) H 11/05/17 05:25 Plt Count 139 K/mcL (140-400) L 11/05/17 05:25 Platelet Estimate Decreased (Normal) L 11/05/17 05:25 Large Platelets Present (Not Present) A 11/04/17 18:00 Immature Plt Fraction 6.8 % (1.1-6.1) H 11/05/17 05:25 Polychromasia 1+ (Not Present) A 11/05/17 05:25 Hypochromasia Present (Not Present) A 11/05/17 05:25 Anisocytosis 2+ (Not Present) A 11/05/17 05:25 Microcytosis Present (Not Present) A 11/05/17 05:25 PT 16.4 Seconds (9.4-12.1) H 11/05/17 05:25 Chloride 114 mEq/L (98-107) H 11/05/17 05:25 Glucose 116 mg/dL (70-105) H 11/05/17 05:25 Serum Total Protein 5.6 g/dL (6.4-8.9) L 11/04/17 18:00 Globulin 1.5 g/dL (2.4-3.5) L 11/04/17 18:00 Albumin/Globulin Ratio 2.7 (1.1-2.2) H 11/04/17 18:00 Stool Occult Bld Scrn Positive (Negative) A 11/04/17 18:31 Diabetes panel 11/05/17 Range/Units 05:25 Sodium 139 (136-145) mEq/L Potassium 4.3 (3.5-5.1) mEq/L Chloride 114 H (98-107) mEq/L Carbon Dioxide 23 (23-29) mEq/L BUN 21 (8-23) mg/dL Creatinine 1.21 (0.70-1.30) mg/dL Glucose 116 H (70-105) mg/dL Calcium 8.6 (8.6-10.3) mg/dL Calcium panel 11/05/17 Range/Units 05:25 Calcium 8.6 (8.6-10.3) mg/dL Pituitary panel 11/05/17 Range/Units 05:25 Sodium 139 (136-145) mEq/L Potassium 4.3 (3.5-5.1) mEq/L Chloride 114 H (98-107) mEq/L Carbon Dioxide 23 (23-29) mEq/L BUN 21 (8-23) mg/dL Creatinine 1.21 (0.70-1.30) mg/dL Glucose 116 H (70-105) mg/dL Calcium 8.6 (8.6-10.3) mg/dL Adrenal panel 11/05/17 Range/Units 05:25 Sodium 139 (136-145) mEq/L Potassium 4.3 (3.5-5.1) mEq/L Chloride 114 H (98-107) mEq/L Carbon Dioxide 23 (23-29) mEq/L BUN 21 (8-23) mg/dL Creatinine 1.21 (0.70-1.30) mg/dL Glucose 116 H (70-105) mg/dL Calcium 8.6 (8.6-10.3) mg/dL All other labs normal. Consult Discharge Plan - Plan Referrals: Elias Cruz MD [Primary Care Provider] - - Attending Attestation For this encounter, I have reviewed the [employer] MACHINE OPERATOR or PA documentation, treatment plan, and medical decision making; and I have had face to face time with this patient. <Art Suero - Last Filed: 11/06/17 08:00> Date of Encounter: 11/05/17 Assessment and Plan (1) Lower GI bleeding Current Visit: Yes Status: Acute Review of Systems All systems PM: The remainder of the systems were reviewed and are negative General Surgery Exam Initial Vital Signs Temp Pulse Resp BP Pulse Ox 98.6 F 79 16 133/72 100 11/04/17 17:49 11/04/17 17:49 11/04/17 17:49 11/04/17 17:49 11/04/17 17:49 Exam Initial Vital Signs Temp Pulse Resp BP Pulse Ox 98.6 F 79 16 133/72 100 11/04/17 17:49 11/04/17 17:49 11/04/17 17:49 11/04/17 17:49 11/04/17 17:49 Results - Labs 11/06/17 05:44 11/06/17 05:05 Abnormal lab results RBC 3.35 M/mcL (4.19-5.50) L 11/06/17 05:44 Hgb 7.7 g/dL (12.9-16.9) L 11/06/17 05:44 Hct 25.3 % (37.5-50.1) L 11/06/17 05:44 MCV 75.5 fL (83.0-100.0) L 11/06/17 05:44 MCH 23.0 pg (28.0-33.3) L 09/29/18 05:44 MCHC 30.4 g/dL (31.6-35.5) L 11/06/17 05:44 RDW 24.8 % (11.5-14.5) H 11/06/17 05:44 Large Platelets Present (Not Present) A 11/04/17 18:00 Immature Plt Fraction 6.9 % (1.1-6.1) H 11/06/17 05:44 Polychromasia 1+ (Not Present) A 11/05/17 05:25 Hypochromasia Present (Not Present) A 11/05/17 05:25 Anisocytosis 2+ (Not Present) A 11/06/17 05:44 Microcytosis Present (Not Present) A 11/05/17 05:25 PT 16.4 Seconds (9.4-12.1) H 11/05/17 05:25 Chloride 112 mEq/L (98-107) H 11/06/17 05:05 Calcium 8.5 mg/dL (8.6-10.3) L 11/06/17 05:05 Serum Total Protein 5.6 g/dL (6.4-8.9) L 11/04/17 18:00 Globulin 1.5 g/dL (2.4-3.5) L 11/04/17 18:00 Albumin/Globulin Ratio 2.7 (1.1-2.2) H 11/04/17 18:00 Stool Occult Bld Scrn Positive (Negative) A 11/04/17 18:31 Diabetes panel 11/06/17 Range/Units 05:05 Sodium 139 (136-145) mEq/L Potassium 3.7 (3.5-5.1) mEq/L Chloride 112 H (98-107) mEq/L Carbon Dioxide 23 (23-29) mEq/L BUN 10 (8-23) mg/dL Creatinine 0.91 (0.70-1.30) mg/dL Glucose 99 (70-105) mg/dL Calcium 8.5 L (8.6-10.3) mg/dL Calcium panel 11/06/17 Range/Units 05:05 Calcium 8.5 L (8.6-10.3) mg/dL Pituitary panel 11/06/17 Range/Units 05:05 Sodium 139 (136-145) mEq/L Potassium 3.7 (3.5-5.1) mEq/L Chloride 112 H (98-107) mEq/L Carbon Dioxide 23 (23-29) mEq/L BUN 10 (8-23) mg/dL Creatinine 0.91 (0.70-1.30) mg/dL Glucose 99 (70-105) mg/dL Calcium 8.5 L (8.6-10.3) mg/dL Adrenal panel 11/06/17 Range/Units 05:05 Sodium 139 (136-145) mEq/L Potassium 3.7 (3.5-5.1) mEq/L Chloride 112 H (98-107) mEq/L Carbon Dioxide 23 (23-29) mEq/L BUN 10 (8-23) mg/dL Creatinine 0.91 (0.70-1.30) mg/dL Glucose 99 (70-105) mg/dL Calcium 8.5 L (8.6-10.3) mg/dL All other labs normal. - Attending Attestation I have personally performed a face to face evaluation on this patient. I have reviewed and agree with the care plan. History and Exam by me shows: Plan colonoscopy to evaluate polypectomy site Art Suero MD FACS
[2017-11-05 22:45] LABS: Hematocrit 24.7 % (37.5-50.1); Hemoglobin 7.6 g/dL (12.9-16.9)
[2017-11-06 05:42] LABS: BUN/Creatinine Ratio 11 (6-26); Blood Urea Nitrogen 10 mg/dL (8-23); Calcium 8.5 mg/dL (8.6-10.3); Carbon Dioxide 23 mEq/L (23-29); Chloride 112 mEq/L (98-107); Glucose 99 mg/dL (70-105); Osmolality,Calculated 287 (280-300); Potassium 3.7 mEq/L (3.5-5.1); Sodium 139 mEq/L (136-145); eGFR For Non-African Americans > 60 (> 60)
[2017-11-06 06:12] LABS: Basophils % 0.7 %
[2017-11-06 06:13] LABS: Eosinophils # 0.1 K/mcL (0.0-0.6); Eosinophils % 2.2 %; Hematocrit 25.3 % (37.5-50.1); Hemoglobin 7.7 g/dL (12.9-16.9); Immature Granulocytes % 0.2 % (0-4); Immature Platelets 6.9 % (1.1-6.1); Lymphocytes # 1.1 K/mcL (0.6-4.6); Lymphocytes % 25.2 %; Mean Corpuscular HGB Conc 30.4 g/dL (31.6-35.5); Mean Corpuscular Volume 75.5 fL (83.0-100.0); Mean Platelet Volume 10.6 fL (9.4-12.4); Monocytes # 0.4 K/mcL (0.0-1.3); Monocytes % 7.7 %; Neutrophils # 2.9 K/mcL (1.6-8.9); Platelet Count 145 K/mcL (140-400); Red Blood Count 3.35 M/mcL (4.19-5.50); Red Cell Distribution Width 24.8 % (11.5-14.5)
[2017-11-06 06:22] LABS: Anisocytosis 2+ (Not Present); Platelet Estimate Normal (Normal)
--- NOTE | 2017-11-06 07:31 | Internal Med Progress Note ---
Hospitalist Progress Note - Encounter Date of Encounter: 11/06/17 Time of Encounter: 07:30 - Subjective Interval History: underwent colonoscopy today, no active hematochezia at this time slight headache no chest pain, dyspnea, dizziness, n, v, abd pain, cough, sputum - Exam Vitals: Temp Pulse Resp BP Pulse Ox 98.8 F 77 15 151/78 96 11/06/17 05:18 11/06/17 05:18 11/06/17 05:18 11/06/17 05:18 11/06/17 05:18 Exam: Patient in no acute distress, alert and oriented 3 no icterus moist oral mucosa Heart normal rate and rhythm, no murmurs or gallops auscultated Lungs clear to auscultation bilaterally without wheeze or rales Abdomen soft and mildly distended without guarding, not tender no LE edema Skin warm and dry, pallor visualized Alert, oriented, no dysarthria, no focal deficits - Assessment and Plan (1) CAD (coronary artery disease) Current Visit: Yes Status: Chronic (2) Hypertension Current Visit: Yes Status: Chronic (3) PAF (paroxysmal atrial fibrillation) Current Visit: Yes Status: Chronic (4) Lower gastrointestinal hemorrhage Current Visit: Yes Status: Acute - Summary of Assessment and Plan Summary of Assessment and Plan: 62M with CAD, a-fib on AC, developed microcytic anemia since 02/2017 and underwent colonoscopy with polypectomy with Dr. Suero on 11/03/17. He resumed his Xarelto on 11/03/17 after polypectomy. He presented to ED with rectal bleeding, dizziness with an INR of 1.9. Hb was 6.8 on admission (previously 7.2 on and 11.5 in 02/2017). Acute blood loss anemia s/p 2 units PRBC transfusion Recently diagnosed chronic microcytic anemia -Hb was 6.8 on admission (previously 7.2 on 10/21/17 and 11.5 in 02/2017 and 13.3 at the time of STEMI in 12/2016) - underwent repeat colonoscopy by Dr. Suero on 11/06/17 and 3 more polyps were removed which were not seen previously due to suboptimal colon prep. Also found ot have bleeding from previous polypectomy sites, which were treated - Dr. Suero recommended holding Xarelto (a-fib) and Brilinta (STEMI PCI 12/2016) for 1 week, and continuing aspirin for this week CAD (coronary artery disease) - will discuss with cardiology about stopping Brilinta in the setting of prior PCIs, last in 12/2016 and also for long line teamster plan for anticoagulation plus anti- platelet therapy due to significant GI bleeding - Gradually start ImDur and metoprolol today, and uptitrate to home dose if he remains stable - will start amlodipine next Hypertension as above PAF (paroxysmal atrial fibrillation) Paroxysmal atrial fibrillation controlled with metoprolol and Xarelto for anticoagulation at home xarelto on hold due to acute blood loss anemia from LGIB DVT prophylaxis Sequential compression devices due to GIB - Time Spent with Patient Total time spent is greater than 50% in coordination of care (as documented) at patient's floor/unit and/or counseling patient: Internal Medicine: Result - Labs CBC & Chem 7: 11/06/17 05:44 11/06/17 05:05 Labs: Short CBC 11/05/17 11/06/17 Range/Units 22:26 05:44 WBC 4.5 (4.3-11.1) K/mcL Hgb 7.6 L 7.7 L (12.9-16.9) g/dL Hct 24.7 L 25.3 L (37.5-50.1) % Plt Count 145 (140-400) K/mcL Neutrophils # 2.9 (1.6-8.9) K/mcL BMP 11/06/17 05:05 Sodium 139 Potassium 3.7 Chloride 112 H Carbon Dioxide 23 BUN 10 Creatinine 0.91 Glucose 99 Calcium 8.5 L - ABG Interpretation ABG results: PT/INR, D-dimer PT 16.4 Seconds (9.4-12.1) H 11/05/17 05:25 Consult Discharge Plan - Plan Referrals: Elias Cruz MD [Primary Care Provider] - (1) CAD (coronary artery disease) Qualifiers: Coronary Disease-Associated Artery/Lesion type: [place] artery [place] vs. transplanted heart: [place] heart Associated angina: with stable angina Qualified Code(s): I25.118 - Atherosclerotic heart disease of [place] coronary artery with other forms of angina pectoris (2) Hypertension Qualifiers: Hypertension type: essential hypertension Qualified Code(s): I10 - Essential (primary) hypertension
[2017-11-06] MEDS ORDERED: *HR* FentaNYL (PF) 100 MCG/2 ML VIAL ONE (07:42)
[2017-11-06] MEDS ORDERED: *HR* Midazolam HCl 5 MG/5 ML VIAL IVP ONE ×2 (07:42→08:01)
[2017-11-06] MEDS ORDERED: 0.9 % Sodium Chloride 500 ML IVC SCH (08:00)
[2017-11-06] MEDS ORDERED: *HR* FentaNYL (PF) 100 MCG/2 ML VIAL IVP ONE (08:01)
--- NOTE | 2017-11-06 08:02 | Pre-Sedation Evaluation ---
Pre-sedation evaluation - Pre-sedation checklist Date of procedure: 11/06/17 Procedure: colonoscopy Recent Vitals: Last Vital Signs Temp 98.8 F 11/06/17 05:18 Pulse 92 11/06/17 07:54 Resp 18 11/06/17 07:54 BP 167/76 11/06/17 07:54 Pulse Ox 95 11/06/17 07:54 H&P (including ROS) documented in medical record: Yes Previous reaction to sedatives/anesthetics: No Dietary Status: NPO after Midnight Dentition: No loose teeth or bridges Possible difficult airway: No ASA Classification *see protocol: CLASS III-Severe systemic disease Plan of Care: Pt appropriate candidate for procedure/moderate/conscious sedation , Risks/benefits of procedure/sedation discussed w/ patient/family Cardiac Registry (Cardio Only) - Functional Capacity - Clincal Frailty Scale
[2017-11-06] MEDS: Aspirin 325 MG TABLET PO SCH (12:35)
[2017-11-06] MEDS: Isosorbide MONOnitrate (24 HR) 60 MG TAB.ER.24H PO SCH (12:35)
--- NOTE | 2017-11-06 12:40 | General Surgery Progress Note ---
<Gregoria Gavin - Last Filed: 11/06/17 12:37> Date of Encounter: 11/06/17 Time of Encounter: 12:37 - Assessment and Plan (1) Polyp, colonic Current Visit: Yes Status: Acute Post colonoscopy this morning with polyp removal and cauterization; expect bledding to resolved - hold brilanta and xarelto - may resume regular diet - follow up colonoscopy in one year Qualifiers: Inflammatory colon polyp complication status: rectal bleeding Qualified Code(s): K51.411 - Inflammatory polyps of colon with rectal bleeding (2) Lower GI bleeding Current Visit: Yes Status: Resolved see above (3) Anemia Current Visit: Yes Status: Acute Stable HgB 7.7 with out symptoms; likely due to GI bleed from polyp that has now resolved. Last transfused on 11-04. - continue to trend daily CBC Qualifiers: Other causes of anemia: acute posthemorrhagic Qualified Code(s): D62 - Acute posthemorrhagic anemia (4) CAD (coronary artery disease) Current Visit: Yes Status: Chronic Post cardiac vessel sent in February - hold Brilenta and Xarelto as risk from GI bleed outweighs unlikely stent occlusion more than 8 months out - start ASA 325 daily Qualifiers: Coronary Disease-Associated Artery/Lesion type: [place] artery [place] vs. transplanted heart: [place] heart Associated angina: with stable angina Qualified Code(s): I25.118 - Atherosclerotic heart disease of [place] coronary artery with other forms of angina pectoris Subjective Patient reports: pain is less, diarrhea, blood in stool, afebrile Narrative: Tolerated colonoscopy well Objective Vital Signs - Last 8 Hours Temp Pulse Resp BP Pulse Ox 11/06/17 11:28 98.6 F 78 18 160/79 90 11/06/17 08:34 87 18 143/87 97 11/06/17 08:29 84 18 156/82 97 11/06/17 08:24 75 18 142/75 97 11/06/17 08:19 81 18 153/82 97 11/06/17 08:14 86 18 148/80 96 11/06/17 08:09 80 18 140/73 95 11/06/17 07:54 92 18 167/76 95 11/06/17 05:18 98.8 F 77 15 151/78 96 Intake and Output 11/05/17 11/06/17 11/06/17 23:59 07:59 15:59 Intake Total 1000 / 1000 200 / 200 Balance 1000 / 1000 200 / 200 Intake: IV Fluids 1000 / 1000 200 / 200 0.9 % Sodium Chloride 1,000 ML 1000 / 1000 @ 150 mls/hr IVC .Q6H40M [facility] Rx #:[id number] 0.9 % Sodium Chloride 500 ML @ 200 / 200 50 mls/hr IVC .Q10H [facility] Rx#: [id number] Other: Stool Size Moderate Stool Consistency soft Stool Color Brown Blood Tinged # Voids 2 1 # Bowel Movements 2 - General physical appearance well developed, well nourished, no distress, obese - Eyes normal ocular movement - ENT normal pinna, normal nares, dry mucosa - Respiratory normal expansion, normal respiratory effort, clear to auscultation - Cardiovascular Cardiovascular exam: Present: RRR, no murmurs/rubs/gallops - Abdomen Abdomen: Present: bowel sounds present, soft, distended, tender. Absent: guarding, rigid Abdominal Tenderness: LLQ Hernia: none, umbilical - Integumentary no rash, no growths, no abnormal pigmentation - Neurologic CN 2-12 grossly intact, normal coordination, normal sensation - Musculoskeletal normal gait, normal posture - Psychiatric oriented to time, oriented to person, oriented to place, speech is normal, memory intact - Labs 11/06/17 05:44 11/06/17 05:05 Diabetes panel 11/06/17 Range/Units 05:05 Sodium 139 (136-145) mEq/L Potassium 3.7 (3.5-5.1) mEq/L Chloride 112 H (98-107) mEq/L Carbon Dioxide 23 (23-29) mEq/L BUN 10 (8-23) mg/dL Creatinine 0.91 (0.70-1.30) mg/dL Glucose 99 (70-105) mg/dL Calcium 8.5 L (8.6-10.3) mg/dL Calcium panel 11/06/17 Range/Units 05:05 Calcium 8.5 L (8.6-10.3) mg/dL Pituitary panel 11/06/17 Range/Units 05:05 Sodium 139 (136-145) mEq/L Potassium 3.7 (3.5-5.1) mEq/L Chloride 112 H (98-107) mEq/L Carbon Dioxide 23 (23-29) mEq/L BUN 10 (8-23) mg/dL Creatinine 0.91 (0.70-1.30) mg/dL Glucose 99 (70-105) mg/dL Calcium 8.5 L (8.6-10.3) mg/dL Adrenal panel 11/06/17 Range/Units 05:05 Sodium 139 (136-145) mEq/L Potassium 3.7 (3.5-5.1) mEq/L Chloride 112 H (98-107) mEq/L Carbon Dioxide 23 (23-29) mEq/L BUN 10 (8-23) mg/dL Creatinine 0.91 (0.70-1.30) mg/dL Glucose 99 (70-105) mg/dL Calcium 8.5 L (8.6-10.3) mg/dL Consult Discharge Plan - Plan Referrals: Elias Cruz MD [Primary Care Provider] - <Art Suero - Last Filed: 11/07/17 17:24> Date of Encounter: 11/06/17 - Assessment and Plan (1) Lower GI bleeding Current Visit: Yes Status: Resolved Objective Vital Signs - Last 8 Hours Temp Pulse Pulse Pulse Pulse Resp BP 11/07/17 17:15 98.4 F 82 17 132/72 11/07/17 17:10 82 110 85 11/07/17 13:16 98.8 F 81 18 154/77 BP BP BP Pulse Ox 11/07/17 17:15 98 11/07/17 17:10 145/69 132/72 161/74 11/07/17 13:16 100 Intake and Output 11/07/17 11/07/17 11/07/17 07:59 15:59 23:59 Intake Total 1500 / 1500 480 / 480 Balance 1500 / 1500 480 / 480 Intake: IV Fluids 1500 / 1500 0.9 % Sodium Chloride 1,000 ML 1000 / 1000 @ 999 mls/hr IVC .Q1H1M [facility] Rx# :[id number] 0.9 % Sodium Chloride 500 ML @ 500 / 500 250 mls/hr IVC .Q2H [facility] Rx#: [id number] Oral 480 / 480 Other: Meal Lunch Percent of Meal Consumed 90% # Voids 1 - Labs 11/07/17 04:18 11/07/17 04:18 Diabetes panel 09/30/18 Range/Units 04:18 Sodium 140 (136-145) mEq/L Potassium 3.7 (3.5-5.1) mEq/L Chloride 110 H (98-107) mEq/L Carbon Dioxide 23 (23-29) mEq/L BUN 14 (8-23) mg/dL Creatinine 1.12 (0.70-1.30) mg/dL Glucose 112 H (70-105) mg/dL Calcium 8.1 L (8.6-10.3) mg/dL Calcium panel 11/07/17 Range/Units 04:18 Calcium 8.1 L (8.6-10.3) mg/dL Pituitary panel 11/07/17 Range/Units 04:18 Sodium 140 (136-145) mEq/L Potassium 3.7 (3.5-5.1) mEq/L Chloride 110 H (98-107) mEq/L Carbon Dioxide 23 (23-29) mEq/L BUN 14 (8-23) mg/dL Creatinine 1.12 (0.70-1.30) mg/dL Glucose 112 H (70-105) mg/dL Calcium 8.1 L (8.6-10.3) mg/dL Adrenal panel 11/07/17 Range/Units 04:18 Sodium 140 (136-145) mEq/L Potassium 3.7 (3.5-5.1) mEq/L Chloride 110 H (98-107) mEq/L Carbon Dioxide 23 (23-29) mEq/L BUN 14 (8-23) mg/dL Creatinine 1.12 (0.70-1.30) mg/dL Glucose 112 H (70-105) mg/dL Calcium 8.1 L (8.6-10.3) mg/dL - Attending Attestation I examined this patient and my medical decision-making was reviewed with the Resident Physician. I agree with the documented findings, disposition and treatment plan as described except to the extent set forth below. The patient was seen and evaluated with resident. He underwent evaluation of the polypectomy site. Unfortunately he had 2 carpal like polyps that were not discovered on Wednesday. Both of these were resected. My preference would be to keep him off antiplatelet agents for 5 days. Cardiology evaluation consultation may be helpful. Art Suero MD FACS
--- NOTE | 2017-11-06 12:43 | Cardiology Consult Note ---
<Armando Garces R - Last Filed: 11/06/17 13:33> Date of Encounter: 11/06/17 Time of Encounter: 12:42 Assessment and Plan (1) Lower GI bleeding Current Visit: Yes Status: Resolved Colonoscopy outpt last week one sessile polyp removed. Was on Brilinta and Xarelto. Stopped taking his Brilinta and Xarelto 2 days prior to the procedure, the procedure was completed and resumed his meds. Following that, he noticed bright red blood in the toilet after a bowel movement In the ED, HGB was found to be 6.8, stool occult blood screen positive. Pt underwent repeat colonoscopy this AM with polyp removal and cauterization. Currently Brilinta and Xarelto have been held and cardiology has been consulted for further recs. PTCA to RCA 12/2016. Would prefer pt be on Brilinta 90mg BID. GI prefers it be held for at least 3 days. Continue ASA in the meantime and resume Brilinta in 3 days. Anticipate s/o once seen by Dr. Stewart with close outpt follow-up. (2) CAD (coronary artery disease) Current Visit: Yes Status: Chronic [facility] 12/2016 Patient had successful PTCA in the mid RCA. Has underwent Brachytherapy at [facility] (Formerly [facility]) due to recurrent restenosis/thrombosis of the RCA. Pt was on Brilinta and Xarelto prior to admission, both have been held for lower GI bleed. ASA started by GI. As above, ASA, BB, Statin. Resume Brilinta in 3 days once okay with GI. Qualifiers: Coronary Disease-Associated Artery/Lesion type: [place] artery [place] vs. transplanted heart: [place] heart Associated angina: with stable angina Qualified Code(s): I25.118 - Atherosclerotic heart disease of [place] coronary artery with other forms of angina pectoris (3) PAF (paroxysmal atrial fibrillation) Current Visit: No Status: Chronic PAF diagnosed 12/2016 s/p STEMI. Was started on Xarelto at that time. Appears to be maintaining SR during current stay. No recurrent PAF has been documented since STEMI. Continue BB. [id number] 2 (HTN, CAD). Xarelto on hold given lower GI bleeding. Pt aware of increased CVA risk if he has PAF off anticoagulation. Consider outpt holter/event monitor to evaluate for any recurrent PAF. Follow- up with Dr. Naty Kenney as outpt for re-evaluation. Discussion w patient/family: The assessment and plan as outlined above was discussed with the patient and/or family members who expressed understanding and agreement. All questions were answered. Thank you for involving us in the care of your patient. Please call with any questions. I will discuss all the above with Dr. Stewart and make changes as necessary. History of Present Illness Consult date: 11/06/17 Consult reason: AC recs Chief complaint: GI bleed History of present illness: Mr. Blue is a 62 year old male with PMH of CAD s/p multiple PCIs--most recently STEMI 12/2016 with PTCA to his RCA, Brachytherapy at [facility] ([facility]) due to recurrent restenosis/thrombosis of his RCA, gastroesophageal reflux disease, hyperlipidemia, hypertension, PAF on Xarelto, iron deficiency anemia. He received a colonoscopy outpt last week, indicated for iron deficiency anemia , with one sessile polyp removed. He stopped taking his Xarelto 2 days prior to the procedure, the procedure was completed without incident and he was sent home and told to resume his Xarelto. Following that, he noticed bright red blood in the toilet after a bowel movement and he presented to the emergency department. He denied having any symptoms including chest pain, worsening shortness of breath from baseline, nausea or vomiting, lightheadedness or syncope. In the ED, HGB was found to be 6.8, stool occult blood screen positive. Pt underwent repeat colonoscopy this AM with polyp removal and cauterization. Currently Brilinta and Xarelto have been held and cardiology has been consulted for further recs. Prior CV testing: [facility] 12/22/16: There is three vessel coronary artery disease. The left ventricle is normal and has normal contractility EF 55%. Patient had successful PTCA in the mid RCA. Brachytherapy may be an option due to recurrent restenosis/ thrombosis. TTE 12/22/16: LVEF 45-50%. Normal LV chamber size and wall thickness. Mild segmental left ventricular systolic dysfunction. Indeterminate diastolic function. Normal right ventricular structure and function. No evidence of pulmonary hypertension. No significant valvular dysfunction. Past Med Surg Social Fam HX - Past Medical History Medical history: coronary artery disease, GERD, hyperlipidemia, hypertension, myocardial infarction (2017), other (BPH) Additional medical history: [place] x3 Psychiatric history: no psych history - Past Surgical History Surgical History: angioplasty/stent (2015, 2016, 2017), carotid endarterectomy ( Right), cataract, other (tonsillectomy, Cardiac ablation) Additional surgical history: cataracts removed. colonoscopy. R carotid endarterectomy - Social History Smoking Status: Former smoker Smokeless Tobacco Status: No Alcohol use: none Drug use: none - Family History Father Adopted: No Family Member Ethnicity: Non- Living Status: Hx Family Cardiac Disorders: Yes ([place], by pass) Hx Family Respiratory Disorders: No Hx Family Cancer: No Hx Family GI Disorders: No Hx Family Endocrine Disorder: Yes ([employer]) Hx Family Neuromuscular Disorders: No Hx Family Neurologic Disorders: No Hx Family HEENT Disorders: No Hx Family Autoimmune Disorders: No Mother Family Member Ethnicity: Non- Living Status: Still Living Hx Family Cardiac Disorders: Yes (HTN) Hx Family Respiratory Disorders: No Hx Family Cancer: No Hx Family GI Disorders: No Hx Family Endocrine Disorder: No Hx Family Neuromuscular Disorders: No Hx Family Neurologic Disorders: No Hx Family HEENT Disorders: No Hx Family Autoimmune Disorders: No Medications and Allergies Esomeprazole Magnesium [Nexium] 20 mg PO DAILY 12/26/14 [History] Terazosin [Hytrin] 5 mg PO HS 12/26/14 [History] Nitroglycerin [Nitrostat] 0.4 mg SL AD PRN 12/25/15 [History] Atorvastatin Calcium [Lipitor] 80 mg PO HS #30 tab 09/01/16 [Rx] Ticagrelor [Brilinta] 90 mg PO BID #60 tablet 12/24/16 [Rx] Isosorbide MONOnitrate [Isosorbide Mononitrate ER] 120 mg PO DAILY #30 tab.er.24h 02/04/17 [Rx] Amlodipine Besylate [Amlodipine Besylate] 5 mg PO DAILY 11/04/17 [History] Docusate [Colace] 100 mg PO BID 11/04/17 [History] Ferrous Sulfate [Iron] 650 mg PO TID 11/04/17 [History] Metoprolol Tartrate [Metoprolol Tartrate] 50 mg PO BID 11/04/17 [History] Rivaroxaban [Xarelto] 20 mg PO HS 11/04/17 [History] Tamsulosin [Flomax] 0.4 mg PO QPM 11/04/17 [History] 3 Allergy/AdvReac Type Severity Reaction Status Date / Time omeprazole [From Prilosec] AdvReac Diarrhea Verified 11/04/17 20:37 quinine AdvReac Nightmare Verified 11/04/17 20:37 ranitidine [From Zantac] AdvReac Diarrhea Verified 11/04/17 20:37 All Systems Review: The remainder of the systems were reviewed and are negative - Cardiovascular Cardiovascular: as per HPI, dyspnea on exertion - Respiratory Respiratory: dyspnea Physical Examination Vital Signs, Last 4 Hours Temp Pulse Resp BP Pulse Ox 11/06/17 11:28 98.6 F 78 18 160/79 90 Vital Signs Temp Pulse Resp BP Pulse Ox 11/06/17 11:28 98.6 F 78 18 160/79 90 11/06/17 08:34 87 18 143/87 97 11/06/17 08:29 84 18 156/82 97 11/06/17 08:24 75 18 142/75 97 11/06/17 08:19 81 18 153/82 97 11/06/17 08:14 86 18 148/80 96 11/06/17 08:09 80 18 140/73 95 11/06/17 07:54 92 18 167/76 95 11/06/17 05:18 98.8 F 77 15 151/78 96 11/06/17 02:09 98.1 F 80 15 166/75 97 11/05/17 21:29 98.2 F 87 16 155/79 98 11/05/17 16:54 98.1 F 68 20 163/85 95 Intake and Output 11/05/17 11/06/17 11/06/17 23:59 07:59 15:59 Intake Total 1000 / 1000 200 / 200 Balance 1000 / 1000 200 / 200 Intake: IV Fluids 1000 / 1000 200 / 200 0.9 % Sodium Chloride 1,000 ML 1000 / 1000 @ 150 mls/hr IVC .Q6H40M [facility] Rx #:[id number] 0.9 % Sodium Chloride 500 ML @ 200 / 200 50 mls/hr IVC .Q10H [facility] Rx#: [id number] Other: Stool Size Moderate Stool Consistency soft Stool Color Brown Blood Tinged # Voids 2 1 # Bowel Movements 2 General: Conversant, No Apparent Distress HEENT: Atraumatic, Normocephaly, Mucus Membranes Moist Neck: No JVD, Normal carotid pulses Cardiac: Reg Rate and Rhythm, Normal S1 and S2, No Murmur Lungs: Normal Breath Sounds, No Wheeze, Rales, Rhonchi Neuro: Alert and responsive, No focal deficits noted Abdomen: Soft, Non-Tender Skin: No rashes noted on visualized skin Musculoskeletal: No Chest Wall Tenderness Extremities: No Clubbing, No Cyanosis, No Edema, Normal Pulses Results 11/06/17 05:44 11/06/17 05:05 Lab Results 11/05/17 11/06/17 11/06/17 22:26 05:05 05:44 WBC 4.5 Hgb 7.6 L 7.7 L Hct 24.7 L 25.3 L Plt Count 145 Sodium 139 Potassium 3.7 Chloride 112 H Carbon Dioxide 23 BUN 10 Creatinine 0.91 Glucose 99 Calcium 8.5 L Short CBC 11/06/17 11/05/17 Range/Units 05:44 22:26 WBC 4.5 (4.3-11.1) K/mcL Hgb 7.7 L 7.6 L (12.9-16.9) g/dL Hct 25.3 L 24.7 L (37.5-50.1) % Plt Count 145 (140-400) K/mcL Neutrophils # 2.9 (1.6-8.9) K/mcL BMP 11/06/17 Range/Units 05:05 Sodium 139 (136-145) mEq/L Potassium 3.7 (3.5-5.1) mEq/L Chloride 112 H (98-107) mEq/L Carbon Dioxide 23 (23-29) mEq/L BUN 10 (8-23) mg/dL Creatinine 0.91 (0.70-1.30) mg/dL Glucose 99 (70-105) mg/dL Calcium 8.5 L (8.6-10.3) mg/dL Active Medications Acetaminophen (Tylenol) 650 mg PO Q6HR PRN PRN Reason: Mild Pain/Fever Stop: 05/06/18 21:56 Aspirin (Aspirin) 325 mg PO DAILY [facility] Stop: 05/08/18 10:31 Last Admin: 11/06/17 12:35 Dose: 325 mg Atorvastatin Calcium (Lipitor) 80 mg PO HS [facility] Stop: 05/07/18 21:01 Last Admin: 11/05/17 22:10 Dose: 80 mg Ferrous Sulfate (Ferrous Sulfate) 325 mg PO TIDWM [facility] Stop: 05/07/18 08:01 Last Admin: 11/06/17 12:35 Dose: 325 mg Hydralazine HCl (Hydralazine) 10 mg IVP Q6HR PRN PRN Reason: SBP >160, DBP > 100 Stop: 05/07/18 12:20 Sodium Chloride (0.9 % Sodium Chloride) 500 mls @ 50 mls/hr IVC .Q10H [facility] Stop: 11/06/17 17:59 Last Infusion: 11/06/17 08:23 Dose: 50 mls/hr Isosorbide Mononitrate (Imdur) 60 mg PO DAILY [facility] Stop: 05/08/18 11:46 Last Admin: 11/06/17 12:35 Dose: 60 mg Lansoprazole (Prevacid) 30 mg PO QAM [facility] PRN Reason: Protocol Stop: 05/08/18 09:01 Last Admin: 11/06/17 09:25 Dose: 30 mg Metoprolol Tartrate (Lopressor) 25 mg PO BID [facility] Stop: 05/08/18 21:01 Tamsulosin HCl (Flomax) 0.4 mg PO QPM [facility] PRN Reason: Protocol Stop: 05/07/18 18:01 Last Admin: 11/05/17 17:44 Dose: 0.4 mg - Imaging and Cardiology Echo: report reviewed Cardiac cath: report reviewed - EKG Interpretation EKG results cardiology: other (12 hr tele AVG HR 79, SR, no significant pauses or arrhythmias.) Consult Discharge Plan - Plan Referrals: Elias Cruz MD [Primary Care Provider] - <Anna Stewart - Last Filed: 11/06/17 21:39> Date of Encounter: 11/06/17 - Attending Attestation Patient was seen and evaluated independently by me. Findings, assessment and plan were discussed at length with patient, questions answered. Agree with nurse practitioner's documentation. Addition as follows, 62 yoM sig for refractory ISR of RCA stent with PTCA 12/2016 for STEMI and PAF, on xarelto and brilinta. Admitted for acute GIB, s/p removal of multiple polyps. Currently off xarelto and brilinta and on ASA based on GI rec. A: Prefer resuming brilinta and xarelto given ho STEMI due to ISR within 1 yr and PAF of unclear burden, however per GI, high risk of recurrent GIB in the next several days if on brilinta or xarelto. PAF now SR. Significant GIB. P: - ok for aspirin for now with elevated risk of recurrent ISR progression and stroke - f/u cardiology clinic early next wk to reassess resuming brilinta in addition to ASA to reassess indication for buttermaker continuous churn xarelto w/ ho sig GIB, likely need event monitor - discussed with pt re risk and benefit of current collective decision and plan Anna Stewart MD, PhD Assessment and Plan Discussion w patient/family: The assessment and plan as outlined above was discussed with the patient and/or family members who expressed understanding and agreement. All questions were answered. Thank you for involving us in the care of your patient. Please call with any questions. History of Present Illness History of present illness: Mr. Blue is a 62 year old male All Systems Review: The remainder of the systems were reviewed and are negative Physical Examination Vital Signs, Last 4 Hours Temp Pulse Resp BP 11/06/17 20:47 146 103/62 11/06/17 20:13 98.3 F 148 20 123/65 Results 11/06/17 05:44 11/06/17 05:05 Lab Results 11/05/17 11/06/17 11/06/17 22:26 05:05 05:44 WBC 4.5 Hgb 7.6 L 7.7 L Hct 24.7 L 25.3 L Plt Count 145 Sodium 139 Potassium 3.7 Chloride 112 H Carbon Dioxide 23 BUN 10 Creatinine 0.91 Glucose 99 Calcium 8.5 L
[2017-11-06] MEDS ORDERED: Simethicone 80 MG TAB.CHEW PO PRN (19:09)
--- NOTE | 2017-11-06 19:12 | Event Note ---
Date of Encounter: 11/06/17 Time of Encounter: 19:10 patient reported bloating and abdominal distension as if he is constipated. Considering tachycardia, assessed at bedside. Soft, distended, NT, bowel sounds present, peristalsis palpable. Doubt post-colonoscopy complication like colonic tear. - will start simethicone prn - will not give laxative at this time, bowel should still be clear from colon prep at the moment
[2017-11-06] MEDS ORDERED: 0.9 % Sodium Chloride 500 ML IVC ONE (23:20)
[2017-11-07 00:17] LABS: Hematocrit 25.4 % (37.5-50.1); Hemoglobin 7.7 g/dL (12.9-16.9)
[2017-11-07] MEDS ORDERED: 0.9 % Sodium Chloride 1,000 ML IVC ONE (02:06)
[2017-11-07 04:56] LABS: Red Blood Count 3.09 M/mcL (4.19-5.50)
[2017-11-07 04:58] LABS: Hematocrit 23.6 % (37.5-50.1); Hemoglobin 7.1 g/dL (12.9-16.9); Immature Platelets 6.7 % (1.1-6.1); Mean Corpuscular HGB Conc 30.1 g/dL (31.6-35.5); Mean Corpuscular Volume 76.4 fL (83.0-100.0); Mean Platelet Volume 11.3 fL (9.4-12.4); Red Cell Distribution Width 25.1 % (11.5-14.5)
[2017-11-07 05:15] LABS: BUN/Creatinine Ratio 13 (6-26); Blood Urea Nitrogen 14 mg/dL (8-23); Calcium 8.1 mg/dL (8.6-10.3); Carbon Dioxide 23 mEq/L (23-29); Chloride 110 mEq/L (98-107); Glucose 112 mg/dL (70-105); Osmolality,Calculated 291 (280-300); Potassium 3.7 mEq/L (3.5-5.1); Sodium 140 mEq/L (136-145); eGFR For Non-African Americans > 60 (> 60)
--- NOTE | 2017-11-07 07:44 | Internal Med Progress Note ---
Hospitalist Progress Note - Encounter Date of Encounter: 11/07/17 Time of Encounter: 08:54 - Subjective Interval History: underwent colonoscopy yesterda, no active hematochezia at this time has been bloated sicne yesterday, reports bilateral upper quadrant 'soreness' without pain passing flatus and had a small bowel movement reports postural dizziness SBP dropped to 80's yesterday and HR increased to 140's bpm, looks like sinus tachy vs atrial flutter with 2:1 conduction WBC 4k --> 16k; Hb stable 7.7 --> 7.7 no chest pain, dyspnea, n, v, cough, sputum - Exam Vitals: Temp Pulse Resp BP Pulse Ox 99.6 F 94 19 105/60 93 11/07/17 05:18 11/07/17 05:18 11/07/17 05:18 11/07/17 05:18 11/07/17 05:18 Exam: Patient in no acute distress, alert and oriented 3 no icterus moist oral mucosa Heart normal rate and rhythm, no murmurs or gallops auscultated Lungs clear to auscultation bilaterally without wheeze or rales Abdomen soft and mildly distended without guarding, not tender, bowel sounds present no LE edema Skin warm and dry, pallor visualized Alert, oriented, no dysarthria, no focal deficits - Assessment and Plan (1) CAD (coronary artery disease) Current Visit: Yes Status: Chronic (2) Hypertension Current Visit: Yes Status: Chronic (3) PAF (paroxysmal atrial fibrillation) Current Visit: No Status: Chronic (4) Lower gastrointestinal hemorrhage Current Visit: Yes Status: Acute - Summary of Assessment and Plan Summary of Assessment and Plan: 62M with CAD, a-fib on AC, developed microcytic anemia since 02/2017 and underwent colonoscopy with polypectomy with Dr. Suero on 11/03/17. He resumed his Xarelto on 11/03/17 after polypectomy. He presented to ED with rectal bleeding, dizziness with an INR of 1.9. Hb was 6.8 on admission (previously 7.2 on and 11.5 in 02/2017). Acute blood loss anemia s/p 2 units PRBC transfusion Recently diagnosed chronic microcytic anemia - Hb was 6.8 on admission (previously 7.2 on 10/21/17 and 11.5 in 02/2017 and 13.3 at the time of STEMI in 12/2016) - underwent repeat colonoscopy by Dr. Suero on 11/06/17 and 3 more polyps were removed which were not seen previously due to suboptimal colon prep. Also found to have bleeding from previous polypectomy sites, which were treated with argon beam coagulation - Now Hb stable 7.7 --> 7.7 - Dr. Suero and cardiology appreciated: hold Xarelto (a-fib) and Brilinta (STEMI PCI 12/2016) for 3 days and then restart if ok with GI. Cont aspirin while off of both Hypotension / Tachycardia / Leukocytosis Baseline Systemic Hypertension - WBC 4k --> 16k - With colonoscopy, transient transmucosal bacterial translocaiton or bacteremia would be in the differential but his physcial exam, vitals and specifically abdominal exam do not suggest either. Thus, it is likely that leukocytosis is reactive and hypotension/tachycardia were hemodynamic changes in response to being NPO and sedation etc. I do not think even an abdominal X- ray is warranted at this time. - He wants to go home today, but I advised him to stay for monitoring until we have demonstrated hemodynamic stability on at least some of his home cardiac medicines - Cont lower than home dose of ImDur and metoprolol if tolerated, and uptitrate to home dose if he remains stable - cont to hold amlodipine for now - check orthostatic vitals daily, may give IV fluids if BP low - add on differential and magnesium level to today's sample in lab CAD (coronary artery disease) - Dr. Suero and cardiology appreciated: hold Xarelto (a-fib) and Brilinta (STEMI PCI 12/2016) for 3 days and then restart if ok with GI. Cont aspirin while off of both - Cont lower than home dose of ImDur and metoprolol if tolerated, and uptitrate to home dose if he remains stable - cont to hold amlodipine for now PAF (paroxysmal atrial fibrillation) - Paroxysmal atrial fibrillation controlled with metoprolol and Xarelto for anticoagulation at home - Xarelto on hold due to acute blood loss anemia from LGIB (see above) DVT prophylaxis Sequential compression devices due to GIB - Time Spent with Patient Total time spent is greater than 50% in coordination of care (as documented) at patient's floor/unit and/or counseling patient: Internal Medicine: Result - Labs CBC & Chem 7: 11/07/17 04:18 11/07/17 04:18 Labs: Short CBC 11/07/17 11/07/17 Range/Units 00:05 04:18 WBC 16.1 H D (4.3-11.1) K/mcL Hgb 7.7 L 7.1 L (12.9-16.9) g/dL Hct 25.4 L 23.6 L (37.5-50.1) % Plt Count 142 (140-400) K/mcL BMP 11/07/17 04:18 Sodium 140 Potassium 3.7 Chloride 110 H Carbon Dioxide 23 BUN 14 Creatinine 1.12 Glucose 112 H Calcium 8.1 L - ABG Interpretation ABG results: PT/INR, D-dimer PT 16.4 Seconds (9.4-12.1) H 11/05/17 05:25 Consult Discharge Plan - Plan Referrals: Elias Cruz MD [Primary Care Provider] - (1) CAD (coronary artery disease) Qualifiers: Coronary Disease-Associated Artery/Lesion type: [place] artery [place] vs. transplanted heart: [place] heart Associated angina: with stable angina Qualified Code(s): I25.118 - Atherosclerotic heart disease of [place] coronary artery with other forms of angina pectoris (2) Hypertension Qualifiers: Hypertension type: essential hypertension Qualified Code(s): I10 - Essential (primary) hypertension
[2017-11-07] MEDS: Isosorbide MONOnitrate (24 HR) 60 MG TAB.ER.24H PO SCH (09:13)
[2017-11-07] MEDS: Aspirin 325 MG TABLET PO SCH (09:13)
--- NOTE | 2017-11-07 10:35 | General Surgery Progress Note ---
<Uche Landa P - Last Filed: 11/07/17 12:19> Date of Encounter: 11/07/17 Time of Encounter: 09:00 - Assessment and Plan (1) Polyp, colonic Current Visit: Yes Status: Acute Post Colonscopy Day 1. No hematochezia at this time. Plan: -Start Brilinta on Wednesday, per cardiology recommendation -Continue Aspirin till Wednesday then stop aspirin -continue regular diet -Follow up colonscopy in 1 year -okay to be discharged from surgical perspective, discharge orders per primary team Qualifiers: Colon polyp type: inflammatory Inflammatory colon polyp complication status : rectal bleeding Qualified Code(s): K51.411 - Inflammatory polyps of colon with rectal bleeding (2) Lower GI bleeding Current Visit: Yes Status: Resolved see above assessment and plan. (3) Anemia Current Visit: Yes Status: Acute Hgb 7.1 down from 7.7 with symptom of dizziness. -transfuse per primary teams recommendations Qualifiers: Other causes of anemia: acute posthemorrhagic Qualified Code(s): D62 - Acute posthemorrhagic anemia (4) CAD (coronary artery disease) Current Visit: Yes Status: Chronic Cardiology consulted, appreciated recommendations. Questionable episode of A-fib seen on Tele overnight. Unable to be captured on EKG. Will defer to primary team. Qualifiers: Coronary Disease-Associated Artery/Lesion type: [place] artery [place] vs. transplanted heart: [place] heart Associated angina: with stable angina Qualified Code(s): I25.118 - Atherosclerotic heart disease of [place] coronary artery with other forms of angina pectoris Subjective Patient reports: no new complaints, afebrile Objective Vital Signs - Last 8 Hours Temp Pulse Resp BP Pulse Ox 11/07/17 08:27 98.8 F 104 17 147/76 96 11/07/17 05:18 99.6 F 94 19 105/60 93 11/07/17 03:20 112 123/63 Intake and Output 11/06/17 11/07/17 11/07/17 23:59 07:59 15:59 Intake Total 1500 / 1500 240 / 240 Balance 1500 / 1500 240 / 240 Intake: IV Fluids 1500 / 1500 0.9 % Sodium Chloride 1,000 ML 1000 / 1000 @ 999 mls/hr IVC .Q1H1M ONE Rx# :[id number] 0.9 % Sodium Chloride 500 ML @ 500 / 500 250 mls/hr IVC .Q2H ONE Rx#: [id number] Oral 240 / 240 Other: Meal Breakfast Percent of Meal Consumed 25% # Voids 1 - General physical appearance no distress - Neck Neck exam: trachea midline - Respiratory clear to auscultation - Cardiovascular Cardiovascular exam: Present: RRR - Abdomen Abdomen: Present: bowel sounds present - Integumentary no rash - Musculoskeletal normal gait, normal posture - Psychiatric oriented to time, oriented to person, oriented to place, speech is normal - Labs 11/07/17 04:18 11/07/17 04:18 Diabetes panel 11/07/17 Range/Units 04:18 Sodium 140 (136-145) mEq/L Potassium 3.7 (3.5-5.1) mEq/L Chloride 110 H (98-107) mEq/L Carbon Dioxide 23 (23-29) mEq/L BUN 14 (8-23) mg/dL Creatinine 1.12 (0.70-1.30) mg/dL Glucose 112 H (70-105) mg/dL Calcium 8.1 L (8.6-10.3) mg/dL Calcium panel 11/07/17 Range/Units 04:18 Calcium 8.1 L (8.6-10.3) mg/dL Pituitary panel 11/07/17 Range/Units 04:18 Sodium 140 (136-145) mEq/L Potassium 3.7 (3.5-5.1) mEq/L Chloride 110 H (98-107) mEq/L Carbon Dioxide 23 (23-29) mEq/L BUN 14 (8-23) mg/dL Creatinine 1.12 (0.70-1.30) mg/dL Glucose 112 H (70-105) mg/dL Calcium 8.1 L (8.6-10.3) mg/dL Adrenal panel 11/07/17 Range/Units 04:18 Sodium 140 (136-145) mEq/L Potassium 3.7 (3.5-5.1) mEq/L Chloride 110 H (98-107) mEq/L Carbon Dioxide 23 (23-29) mEq/L BUN 14 (8-23) mg/dL Creatinine 1.12 (0.70-1.30) mg/dL Glucose 112 H (70-105) mg/dL Calcium 8.1 L (8.6-10.3) mg/dL Consult Discharge Plan - Plan Referrals: Elias Cruz MD [Primary Care Provider] - <Art Suero - Last Filed: 11/07/17 17:54> Date of Encounter: 11/07/17 - Assessment and Plan (1) Lower GI bleeding Current Visit: Yes Status: Resolved Objective Vital Signs - Last 8 Hours Temp Pulse Pulse Pulse Pulse Resp BP 11/07/17 17:15 98.4 F 82 17 132/72 11/07/17 17:10 82 110 85 11/07/17 13:16 98.8 F 81 18 154/77 BP BP BP Pulse Ox 11/07/17 17:15 98 11/07/17 17:10 145/69 132/72 161/74 11/07/17 13:16 100 Intake and Output 11/07/17 11/07/17 11/07/17 07:59 15:59 23:59 Intake Total 1500 / 1500 480 / 480 Balance 1500 / 1500 480 / 480 Intake: IV Fluids 1500 / 1500 0.9 % Sodium Chloride 1,000 ML 1000 / 1000 @ 999 mls/hr IVC .Q1H1M ONE Rx# :[id number] 0.9 % Sodium Chloride 500 ML @ 500 / 500 250 mls/hr IVC .Q2H ONE Rx#: [id number] Oral 480 / 480 Other: Meal Lunch Percent of Meal Consumed 90% # Voids 1 - Labs 11/07/17 04:18 11/07/17 04:18 Diabetes panel 11/07/17 Range/Units 04:18 Sodium 140 (136-145) mEq/L Potassium 3.7 (3.5-5.1) mEq/L Chloride 110 H (98-107) mEq/L Carbon Dioxide 23 (23-29) mEq/L BUN 14 (8-23) mg/dL Creatinine 1.12 (0.70-1.30) mg/dL Glucose 112 H (70-105) mg/dL Calcium 8.1 L (8.6-10.3) mg/dL Calcium panel 11/07/17 Range/Units 04:18 Calcium 8.1 L (8.6-10.3) mg/dL Pituitary panel 11/07/17 Range/Units 04:18 Sodium 140 (136-145) mEq/L Potassium 3.7 (3.5-5.1) mEq/L Chloride 110 H (98-107) mEq/L Carbon Dioxide 23 (23-29) mEq/L BUN 14 (8-23) mg/dL Creatinine 1.12 (0.70-1.30) mg/dL Glucose 112 H (70-105) mg/dL Calcium 8.1 L (8.6-10.3) mg/dL Adrenal panel 11/07/17 Range/Units 04:18 Sodium 140 (136-145) mEq/L Potassium 3.7 (3.5-5.1) mEq/L Chloride 110 H (98-107) mEq/L Carbon Dioxide 23 (23-29) mEq/L BUN 14 (8-23) mg/dL Creatinine 1.12 (0.70-1.30) mg/dL Glucose 112 H (70-105) mg/dL Calcium 8.1 L (8.6-10.3) mg/dL - Attending Attestation The history, physical exam, and medical decision making was performed by the medical student either while I was physically present and actively involved or I personally re-performed the exam and medical decision making. I have verified the accuracy of the medical student's documentation with regards to the history, physical exam findings, and medical decision making. The patient is seen in evaluation on morning rounds with resident and the medical student. He is resting well. His hemoglobin is 7.1. He does not appear to have active ongoing bleeding. I would like to keep him off his antiplatelet agents for at least 3 days. Cardiology recommends immediate restart of his Geethalinen Suero MD FACS
[2017-11-08 04:57] LABS: Basophils % 0.4 %; Eosinophils # 0.1 K/mcL (0.0-0.6); Eosinophils % 1.4 %; Hematocrit 25.1 % (37.5-50.1); Hemoglobin 7.4 g/dL (12.9-16.9); Immature Granulocytes % 0.4 % (0-4); Lymphocytes # 1.2 K/mcL (0.6-4.6); Lymphocytes % 13.8 %; Mean Corpuscular HGB Conc 29.5 g/dL (31.6-35.5); Mean Corpuscular Hemoglobin 22.6 pg (28.0-33.3); Mean Corpuscular Volume 76.8 fL (83.0-100.0); Mean Platelet Volume 11.6 fL (9.4-12.4); Monocytes # 0.6 K/mcL (0.0-1.3); Neutrophils # 6.5 K/mcL (1.6-8.9); Platelet Count 159 K/mcL (140-400); Red Blood Count 3.27 M/mcL (4.19-5.50); Red Cell Distribution Width 25.3 % (11.5-14.5)
[2017-11-08 05:14] LABS: BUN/Creatinine Ratio 14 (6-26); Blood Urea Nitrogen 12 mg/dL (8-23); Calcium 8.5 mg/dL (8.6-10.3); Carbon Dioxide 23 mEq/L (23-29); Chloride 111 mEq/L (98-107); Glucose 100 mg/dL (70-105); Magnesium 1.9 mg/dL (1.6-2.6); Osmolality,Calculated 288 (280-300); Potassium 3.8 mEq/L (3.5-5.1); Sodium 139 mEq/L (136-145); eGFR For Non-African Americans > 60 (> 60)
[2017-11-08 06:09] LABS: Platelet Estimate Normal (Normal)
[2017-11-08 06:10] LABS: Anisocytosis 2+ (Not Present); Poikilocytosis 1+ (Not Present)
[2017-11-08 06:11] LABS: Polychromasia 1+ (Not Present)
[2017-11-08] MEDS: Aspirin 325 MG TABLET PO SCH (07:38)
[2017-11-08] MEDS: Isosorbide MONOnitrate (24 HR) 60 MG TAB.ER.24H PO SCH (07:38)
--- NOTE | 2017-11-08 10:42 | Internal Med Progress Note ---
Hospitalist Progress Note - Encounter Date of Encounter: 11/08/17 - Exam Vitals: Temp Pulse Resp BP Pulse Ox 99.6 F 75 16 158/78 97 11/08/17 06:50 11/08/17 06:50 11/08/17 06:50 11/08/17 06:50 11/08/17 06:50 - Time Spent with Patient Total time spent is greater than 50% in coordination of care (as documented) at patient's floor/unit and/or counseling patient: Internal Medicine: Result - Labs CBC & Chem 7: 11/08/17 04:39 11/08/17 04:39 Labs: Short CBC 11/08/17 Range/Units 04:39 WBC 8.4 (4.3-11.1) K/mcL Hgb 7.4 L (12.9-16.9) g/dL Hct 25.1 L (37.5-50.1) % Plt Count 159 (140-400) K/mcL Neutrophils # 6.5 (1.6-8.9) K/mcL BMP 11/07/17 11/08/17 04:18 04:39 Sodium 140 139 Potassium 3.7 3.8 Chloride 110 H 111 H Carbon Dioxide 23 23 BUN 14 12 Creatinine 1.12 0.88 Glucose 112 H 100 Calcium 8.1 L 8.5 L - ABG Interpretation ABG results: PT/INR, D-dimer PT 16.4 Seconds (9.4-12.1) H 11/05/17 05:25 - Impressions Impressions Echocardiogram 11/07/17 07:00 Impressions: LVEF 60%. Normal LV chamber size, wall thickness and function. Mild left ventricular diastolic dysfunction. Normal right ventricular structure and function. No evidence of pulmonary hypertension. No significant valvular dysfunction. Compared to prior report from 2017, LVEF has improved. Left Ventricular Wall Motion: Rest Echo Findings All wall segments showed normal motion. Findings: Study Quality * Technically adequate exam. ECG Findings * Normal sinus rhythm. Left Ventricle * LVEF 60%. * Normal LV chamber size, wall thickness and function. * Mild left ventricular diastolic dysfunction. Right Ventricle * Normal right ventricular structure and function. Left Atrium * Moderately dilated left atrium. Right Atrium * Normal right atrial size. Aortic Valve * Trileaflet aortic valve. * Mildly sclerotic aortic valve leaflets. * No aortic regurgitation. * No aortic stenosis. Mitral Valve * Normal mitral valve structure and function. * No mitral stenosis. * Trace mitral regurgitation. Tricuspid Valve * Normal tricuspid valve structure and function. * Trace tricuspid regurgitation. * No evidence of pulmonary hypertension. Pulmonic Valve * Normal pulmonic valve structure and function. * No pulmonic regurgitation. Aorta * Normally sized aortic root. Pericardium * The pericardium appears normal. IVC * IVC not well visualized. Pulmonary Artery * Normal visualized portions of the main pulmonary artery. Consult Discharge Plan - Plan Referrals: Elias Cruz MD [Primary Care Provider] -
[2017-11-08 10:43] LABS: Magnesium 1.7 mg/dL (1.6-2.6)
--- NOTE | 2017-11-08 11:59 | Discharge Summary ---
- NOTES TO OUTPATIENT PROVIDER Notes to Outpatient Provider: PCP in 5 to 7 days. Oncologist out pt for evaluation fo pancytopenia Orders not resulted at time of discharge: Pending orders 11/06/17 08:38 Surgical Pathology [PTH] Stat Date of Encounter: 11/08/17 Time of Encounter: 11:57 - Discharge Diagnosis (1) Lower gastrointestinal hemorrhage Priority: Primary Status: Acute Assessment and Plan: Pt is s/p colonoscopy out pt. Stopped taking his Brilinta and Xarelto 2 days prior to the procedure, and resumed his meds after the procedure. Following that, he noticed bright red blood in the toilet after a bowel movement In the ED, HGB was found to be 6.8, stool occult blood screen positive. Pt underwent repeat colonoscopy this AM with polyp removal and cauterization. Stopping ASA 11/09/2017 and resuming Brilinta 11/09/2017. (2) Acute blood loss anemia Priority: Primary Status: Acute Assessment and Plan: Underwent repeat colonoscopy by Dr. Suero on 11/03/17 and 3 more polyps were removed which were not seen previously due to suboptimal colon prep. Also found to have bleeding from previous polypectomy sites, which were treated with argon beam coagulation. He resumed Xarelto after procedure. Hb was 6.8 on admission (previously 7.2 on 10/21/17 and 11.5 in 02/2017). On admission, Dr. Suero and cardiology appreciated: hold Xarelto (a-fib) and Brilinta (STEMI PCI 12/2016) for 3 days and then restart if ok with GI. Continue aspirin while off of both. Cardiology recommending DC ASA 11/09/2017 and start Brilinta 11/09/2017. Hgb today 7.4. He is on Fe supplement 325 mg TID for Fe deficiency anemia and will most likely benefit form Fe infusion as well. WIll refer to heme-onc out pt for further workup and management of pancytopenia. (3) SIRS (systemic inflammatory response syndrome) Priority: Primary Status: Acute Assessment and Plan: Pt meet SIRs criteria yesterday due to WBC 16.4, hypotension and tachycardia. Leukocytosis resolved without intervention. Pt looks well and does not appear to have an infection. ?Infectious vs non-infectious cause of SIRs. WBC 8.4 and resolved at discharge and he is afebrile. Hypotension and tachycardia resolved. He denies cough sputum, abdominal pain or diarrhea. He denies urinary frequency or urgency. He denies CP or SOB. (4) CAD (coronary artery disease) Priority: Secondary Status: Chronic Assessment and Plan: [facility] 12/2016 Patient had successful PTCA in the mid RCA. Has underwent Brachytherapy at [facility] due to recurrent re stenosis/ thrombosis of the RCA. Pt was on Brilinta and Xarelto prior to admission, both have been held for lower GI bleed. ASA started by GI. As above, ASA, BB, Statin. Resume Brilinta 11/09/2017. Qualifiers: Coronary Disease-Associated Artery/Lesion type: [place] artery [place] vs. transplanted heart: [place] heart Associated angina: with stable angina Qualified Code(s): I25.118 - Atherosclerotic heart disease of [place] coronary artery with other forms of angina pectoris (5) Hypertension Priority: Secondary Status: Chronic Assessment and Plan: Imdur, Lopressor Qualifiers: Hypertension type: essential hypertension Qualified Code(s): I10 - Essential (primary) hypertension (6) PAF (paroxysmal atrial fibrillation) Priority: Secondary Status: Chronic Assessment and Plan: PAF diagnosed 12/2016 s/p STEMI. Was started on Xarelto at that time. Appears to be maintaining SR during current stay. No recurrent PAF has been documented since STEMI. Continue BB. [id number] 2 (HTN, CAD). Xarelto on hold given lower GI bleeding. Seen by cardiology and pt aware of increased CVA risk if he has PAF off anticoagulation. Per cardiology, considering out pt holter/event monitor to evaluate for any recurrent PAF. Follow-up with Dr. Naty Kenney as outpt for re-evaluation in one week. Hospital course: Mr. Blue is a 62 year old male with past medical history of CAD, a-fib on AC, developed microcytic anemia since 02/2017 and underwent colonoscopy with polypectomy with Dr. Suero on 11/03/17. He resumed his Xarelto on 11/03/17 after polypectomy. He presented to ED with rectal bleeding, dizziness with an INR of 1.9. Hb was 6.8 on admission (previously 7.2 on 10/21/17 and 11.5 in 02/2017 Discharge discussed with: patient - Time Spent with Patient Total time spent providing and/or coordinating discharge services: Greater than 30 minutes - Discharge Medications Home Medications: Esomeprazole Magnesium [Nexium] 20 mg PO DAILY 12/26/14 [History] Terazosin [Hytrin] 5 mg PO HS 12/26/14 [History] Nitroglycerin [Nitrostat] 0.4 mg SL AD PRN 12/25/15 [History] Atorvastatin Calcium [Lipitor] 80 mg PO HS #30 tab 09/01/16 [Rx] Isosorbide MONOnitrate [Isosorbide Mononitrate ER] 120 mg PO DAILY #30 tab.er.24h 02/04/17 [Rx] Amlodipine Besylate [Amlodipine Besylate] 5 mg PO DAILY 11/04/17 [History] Docusate [Colace] 100 mg PO BID 11/04/17 [History] Ferrous Sulfate [Iron] 650 mg PO TID 11/04/17 [History] Metoprolol Tartrate [Metoprolol Tartrate] 50 mg PO BID 11/04/17 [History] Tamsulosin [Flomax] 0.4 mg PO QPM 11/04/17 [History] Ticagrelor [Brilinta] 90 mg PO BID #60 tablet 11/08/17 [Rx] Allergies/Adverse Reactions: 3 Allergy/AdvReac Type Severity Reaction Status Date / Time omeprazole [From Prilosec] AdvReac Diarrhea Verified 11/04/17 20:37 quinine AdvReac Nightmare Verified 11/04/17 20:37 ranitidine [From Zantac] AdvReac Diarrhea Verified 11/04/17 20:37 Date of admission: 11/05/17 16:41 Primary care physician: Elias Cruz MD Consults: 11/06/17 11:39 Consult to Cardiology [CONS] Routine Comment: Consulting Provider: Cardiology [place] Reason for Consult: Please guide anticoagulant and antiplatelet therapy in the setting of STEMI in 12/2016 s/p PCI on Brilinta, atrial fibrillaiton on Xarelto and now GI bleed requiring blood transfusion Call Completed: Yes Discharging clinician: Niurka Baxter Anticipated date of discharge: 11/08/17 - Constitutional Vitals: Temp Pulse Resp BP Pulse Ox 99.6 F 75 16 158/78 97 11/08/17 06:50 11/08/17 06:50 11/08/17 06:50 11/08/17 06:50 11/08/17 06:50 Exam: Patient in no acute distress, alert and oriented 3 no icterus moist oral mucosa Heart normal rate and rhythm, no murmurs or gallops auscultated Lungs clear to auscultation bilaterally without wheeze or rales Abdomen soft and mildly distended without guarding, not tender, bowel sounds present no LE edema Skin warm and dry, pallor visualized Alert, oriented, no dysarthria, no focal deficits - Head Head exam: Present: atraumatic, normocephalic - Eye Eye exam: Present: PERRL, conjuntiva pink, sclera anicteric Pupils: Present: PERRL - Neck Neck exam general surgery: Present: supple, trachea midline. Absent: lymphadenopathy - Respiratory Respiratory exam: Present: CTAB. Absent: accessory muscle use, rales, rhonchi, wheezes - Cardiovascular Cardiovascular exam: Present: RRR, +S1, +S2. Absent: diastolic murmur, gallop, rubs, systolic murmur - GI/Abdominal GI/Abdominal exam: Present: normal bowel sounds, soft, no peritoneal signs. Absent: distended, tenderness - Extremities Exam Extremities exam: Present: warm, radial pulses palpable and symmetrical. Absent : calf tenderness, cyanotic, pedal edema - Neurological Exam Neurological exam: Present: CN II-XII intact, oriented X3, no focal deficits. Absent: pronater drift, facial droop, speech deficit - Skin Skin exam: Present: dry, intact - Patient Status Disposition: Home, Self-Care Condition: Fair Overall status at discharge: patient is back to baseline - Discharge Instructions Follow Up With: Elias Cruz MD [Primary Care Provider] - - Diet and Activity Activity: increase activity as tolerated Diet: low fat, low cholesterol, low salt diet
[2017-11-08 12:00] VITALS: BP 144/75
--- NOTE | 2017-11-08 15:32 | Electrocardiograph Report ---
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
[2017-11-09] MEDS ORDERED: *HR* Ticagrelor 90 MG TABLET PO SCH (09:00)
== END 2017-11-08 13:52 | disposition home or self-care (01) | DRG 245 ==
LOC: EMEROOARM 17:39 → 2ANU 17:39
PROVIDERS: ADMIT Internal Medicine; ATTEND Internal Medicine

== ENCOUNTER 2021-01-21 06:16 | Inpatient (IN) ==
[2021-01-21] MEDS ORDERED: CeFAZolin Syr 2,000MG/20 ML 2,000 MG/20 ML SYRINGE IVPB ONE (06:58)
[2021-01-21] MEDS ORDERED: Ringers Solution, Lactated 1,000 ML IVC SCH (07:00)
[2021-01-21] MEDS ORDERED: *HR* FentaNYL (PF) 100 MCG/2 ML VIAL ONE (07:02)
[2021-01-21] MEDS ORDERED: *HR* Midazolam HCl 2 MG/2 ML VIAL ONE (07:02)
[2021-01-21] MEDS ORDERED: *HR* Propofol 200 MG/20 ML VIAL IVP ONE (07:02)
[2021-01-21] MEDS ORDERED: Ondansetron 4 MG/2 ML VIAL ONE (07:16)
[2021-01-21] MEDS ORDERED: Lidocaine HCL 4 ML Topical Solution (Laryng-O-Jet Kit Sterile Pak) TP ONE (07:16)
[2021-01-21] MEDS ORDERED: *HR* Phenylephrine 10 MG/ML VIAL ONE (07:16)
[2021-01-21] MEDS ORDERED: Lidocaine -MPF 2% 5 ML VIAL ONE (07:16)
[2021-01-21] MEDS ORDERED: *HR* Rocuronium Bromide 50 MG/5 ML VIAL ONE (07:16)
[2021-01-21] MEDS ORDERED: *HR* Succinylcholine 200 MG/10 ML VIAL IVP ONE (07:16)
[2021-01-21] MEDS ORDERED: Bupivacaine/EPI 1:200k 0.25% 50 ML VIAL ONE (07:21)
[2021-01-21] MEDS ORDERED: Heparin 1,000 UNITS/500 mL 500 ML ONE (07:34)
[2021-01-21] MEDS ORDERED: Ondansetron 4 MG/2 ML VIAL IVP PRN ×2 (07:50→11:40)
[2021-01-21] MEDS ORDERED: *HR* HYDROmorphone PF 0.5 MG/0.5 ML SYRINGE IVP PRN (07:50)
[2021-01-21] MEDS ORDERED: *HR* OxyCODONE Immed Rel 5 MG TABLET PO PRN ×2 (07:50→11:40)
[2021-01-21] MEDS ORDERED: EPHEDrine 50 MG/ML VIAL ONE (08:17)
[2021-01-21] MEDS ORDERED: Acetaminophen IV 1,000 MG/100 ML BAG IVPB ONE (08:36)
[2021-01-21] MEDS ORDERED: Albumin Human 5% 0 GM/0 ML IV.SOLN ONE (09:35)
[2021-01-21] MEDS ORDERED: *HR* HYDROMORPHONE 2 MG/ML VIAL ONE (10:17)
[2021-01-21] MEDS ORDERED: *HR* Belladonna Alkaloids/Opium 30 MG RECTAL SUPPOSITORY RC PRN (11:40)
[2021-01-21] MEDS ORDERED: Nitroglycerin 0.4 MG TAB.SUBL SL PRN (11:40)
[2021-01-21] MEDS ORDERED: *HR* HYDROcodone/Acet 5/325 mg TABLET PO PRN (11:40)
[2021-01-21] MEDS ORDERED: Naloxone 0.4 MG/ML INJ IVP PRN (11:40)
[2021-01-21] MEDS: 0.9 % Sodium Chloride 1,000 ML IVC SCH (14:48)
[2021-01-21] MEDS: Aspirin Enteric Coated 81 MG Tablet PO SCH (14:48)
[2021-01-21] MEDS: Acetaminophen IV 1,000 MG/100 ML BAG IVPB SCH (16:54)
[2021-01-21] MEDS: CeFAZolin 2 GM/120 ML BAG IVPB SCH (17:26)
[2021-01-22] MEDS: Acetaminophen IV 1,000 MG/100 ML BAG IVPB SCH ×4 (00:01→16:05)
[2021-01-22] MEDS: CeFAZolin 2 GM/120 ML BAG IVPB SCH (00:24)
[2021-01-22 04:54] LABS: Basophils % 0.1 %; Hematocrit 40.6 % (37.5-50.1); Hemoglobin 14.3 g/dL (12.9-16.9); Immature Granulocytes % 0.5 % (0-4); Lymphocytes # 0.6 K/mcL (0.6-4.6); Mean Corpuscular HGB Conc 35.2 g/dL (31.6-35.5); Mean Corpuscular Volume 90.8 fL (83.0-100.0); Mean Platelet Volume 11.2 fL (9.4-12.4); Monocytes # 1.2 K/mcL (0.0-1.3); Monocytes % 8.8 %; Neutrophils # 11.8 K/mcL (1.6-8.9); Platelet Count 148 K/mcL (140-400); Red Blood Count 4.47 M/mcL (4.19-5.50); Red Cell Distribution Width 13.1 % (11.5-14.5); Segmented Neutrophils % 86.6 %; White Blood Count 13.7 K/mcL (4.3-11.1)
[2021-01-22 05:10] LABS: Calcium 8.9 mg/dL (8.6-10.3); Potassium 4.1 mEq/L (3.5-5.1)
[2021-01-22] MEDS: 0.9 % Sodium Chloride 1,000 ML IVC SCH (06:32)
[2021-01-22 06:54] VITALS: TEMP 98
[2021-01-22] MEDS ORDERED: amLODIPine 5 MG TABLET PO SCH (09:00)
[2021-01-22] MEDS: Aspirin Enteric Coated 81 MG Tablet PO SCH (09:13)
[2021-01-22 15:43] VITALS: BP 149/73; PULSE 85; O2SAT 94
== END 2021-01-22 17:14 | disposition home or self-care (01) | DRG 661 ==
LOC: SAMDAY 06:16 → 2ANU 11:33
PROVIDERS: ADMIT Urology; ATTEND Urology